=== PATIENT | male | born 1965 | race Caucasian/White ===

== ENCOUNTER 2017-05-03 19:50 | Inpatient (IN) | payer MEDICARE, OTHER ==
[2017-05-03] MEDS ORDERED: Sodium Chloride 0.9% 1,000 ML IV ONE ×2 (20:36→21:38)
[2017-05-03] MEDS ORDERED: Morphine 4 MG/ML VIAL ONE (20:48)
[2017-05-03 20:58] LABS: BASO % 0.2 % (0.0-2.0); EOS % 0.2 % (0.0-4.0); HEMATOCRIT 48.4 % (35.0-51.0); LYMPH % 7.2 % (20.0-40.0); MEAN CELL VOLUME 91.9 fL (80.0-94.0); MEAN CORPUSCULAR HEMOGLOBIN 31.2 pg (27.0-31.0); MEAN CORPUSCULAR HGB CONC 33.9 g/dL (33.0-37.0); MEAN PLATELET VOLUME 9.6 fL (7.2-11.7); MONO # 0.7 K/uL (0.0-0.8); MONO % 5.2 % (0.0-10.0); PLATELET COUNT 188 K/uL (130-400); RED CELL DISTRIBUTION WIDTH 13.8 % (11.5-14.5); WHITE BLOOD COUNT 13.9 K/uL (4.8-10.8)
[2017-05-03 21:08] LABS: INR 1.2
[2017-05-03 21:16] LABS: ALKALINE PHOSPHATASE 132 U/L (38-126); ALT/SGPT 20 U/L (21-72); AST/SGOT 165 U/L (17-59); BILIRUBIN,TOTAL 1.2 mg/dL (0.2-1.3); BLOOD UREA NITROGEN 19 mg/dL (9-20); CALCIUM 9.3 mg/dl (8.6-10.4); CARBON DIOXIDE 27 mmol/L (22-30); CHLORIDE 102 mmol/L (98-107); GFR AFRICAN-AMERICAN > 60; GLUCOSE,RANDOM 123 mg/dL (75-110); MAGNESIUM 1.9 mg/dL (1.6-2.3); POTASSIUM 3.6 mmol/L (3.6-5.2); SODIUM 146 mmol/L (132-148); TOTAL PROTEIN 8.3 g/dL (6.3-8.3)
[2017-05-03 21:18] LABS: NEUTROPHIL 84 % (50-75); TOTAL CELLS COUNTED 100
[2017-05-03 21:19] LABS: LARGE PLATELETS PRESENT
[2017-05-03 21:26] LABS: RBC URINE 5 /hpf (0-3); URINE BACTERIA OCC (<OCC); URINE BILIRUBIN NEGATIVE (NEGATIVE); URINE BLOOD 3+ (NEGATIVE); URINE COLOR Amber (YELLOW); URINE GLUCOSE (UA) NORMAL (Normal); URINE KETONE TRACE mg/dL (NEGATIVE); URINE LEUKOCYTE ESTERASE NEG Leu/uL (Negative); URINE PROTEIN 2+ mg/dL (NEGATIVE); URINE UROBILINOGEN NORMAL mg/dL (0.2-1.0); WBC URINE 5 /hpf (0-5)
--- NOTE | 2017-05-03 21:29 | CT ---
EXAM: CT Head Without Intravenous Contrast EXAM DATE/TIME: Exam ordered 05/03/2017 8:37 PM CLINICAL HISTORY: 52 years old, male; Injury or trauma; Fall; Initial encounter; Blunt trauma (contusions or hematomas); Consciousness not specified; Additional info: Fall, hit head TECHNIQUE: Axial computed tomography images of the head/brain without intravenous contrast. All CT scans at this facility use one or more dose reduction techniques, viz.: automated exposure control; ma/kV adjustment per patient size (including targeted exams where dose is matched to indication; i.e. head); or iterative reconstruction technique. Coronal and sagittal reformatted images were created and reviewed. COMPARISON: No relevant prior studies available. FINDINGS: Brain: Unremarkable. No hemorrhage. No significant white matter disease. No edema. Ventricles: Unremarkable. No ventriculomegaly. Bones/joints: Unremarkable. No acute fracture. Soft tissues: Unremarkable. Sinuses: Unremarkable as visualized. No acute sinusitis. Mastoid air cells: Unremarkable as visualized. No mastoid effusion. Nasopharynx: There is deviation of the nasal septum. IMPRESSION: No acute findings.
[2017-05-03] MEDS ORDERED: Iodixanol 320 MG/ML 100 ML BOTTLE IV ONE (22:04)
--- NOTE | 2017-05-03 23:06 | CT ---
EXAM: CT Angiography Chest With Intravenous Contrast CLINICAL HISTORY: 52 years old, male; Pain; Chest pain; Type not specified; Additional info: Syncope. R/O pe. TECHNIQUE: Axial computed tomographic angiography images of the chest with intravenous contrast using pulmonary embolism protocol. All CT scans at this facility use one or more dose reduction techniques, viz.: automated exposure control; ma/kV adjustment per patient size (including targeted exams where dose is matched to indication; i.e. head); or iterative reconstruction technique. MIP reconstructed images were created and reviewed. Coronal and sagittal reformatted images were created and reviewed. CONTRAST: 100 mL of [id number] administered intravenously. COMPARISON: No relevant prior studies available. FINDINGS: Pulmonary arteries: No pulmonary embolism. Aorta: No thoracic aortic aneurysm. Lungs: No mass. No consolidation. Trace bibasilar atelectasis. Marked elevation of the right hemidiaphragm. Pleural spaces: No significant effusion. No pneumothorax. Heart: No cardiomegaly. No significant pericardial effusion. No evidence of right heart dysfunction. Bones: No acute fracture. Lymph nodes: No pathologically enlarged lymph nodes. IMPRESSION: No pulmonary embolism. Trace bibasilar atelectasis.
--- NOTE | 2017-05-03 23:16 | C.PDOC ---
History Of Present Illness Pt was in the bathroom at home by himself when he states that he felt weak and dizzy and fell to the ground. He was unable to get back up on his own and was on the floor for at least 30 minutes before his family found him and called 911. - HPI Time Seen by Provider: 05/03/17 20:13 Chief Complaint (Nursing): Trauma History Per: Patient, Family Injury Occurred (Timing): Just Before Arrival Description Of Injury (Context): Fell in the bathroom at home. Location Of Injury: Anterior: Head Severity: Moderate Associated Symptoms: LOC (?) Additional History Per: Prior Records - Fall Fall:Prior To Injury: [place] Lightheaded (?) Past Medical History Reviewed: Historical Data, Nursing Documentation, Vital Signs Vital Signs: Last Vital Signs Temp 98.6 F 05/03/17 19:52 Pulse 104 H 05/03/17 20:38 Resp 24 05/03/17 20:38 BP 133/86 05/03/17 20:38 Pulse Ox 93 L 05/03/17 23:24 - Medical History PMH: Parkinson's Disease Surgical History: No Surg Hx Family History: States: Unknown Family Hx - Social History Hx Tobacco Use: No Hx Alcohol Use: No (quit 7 years ago) Hx Substance Use: No - Immunization History Hx Tetanus Toxoid Vaccination: No Hx Influenza Vaccination: Yes Hx Pneumococcal Vaccination: Yes Review Of Systems Except As Marked, All Systems Reviewed And Found Negative. Constitutional: Negative for: Fever Respiratory: Positive for: Shortness of Breath (?). Negative for: Hemoptysis Gastrointestinal: Negative for: Vomiting, Abdominal Pain Musculoskeletal: Positive for: Back Pain (right lower). Negative for: Neck Pain Skin: Negative for: Rash Neurological: Positive for: Headache. Negative for: Weakness, Numbness, Seizures Physical Exam - Physical Exam Appears: No Acute Distress, Chronically Ill Skin: Normal Color, Warm, Dry, No Rash Head: Atraumatic, Normacephalic, No Laceration, Other (contusions) Eye(s): bilateral: PERRL, EOMI Neck: Normal ROM, No Midline Cervical Tenderness, No Step Off Deformity, Supple Chest: Symmetrical, No Deformity Cardiovascular: Rhythm Regular Respiratory: Normal Breath Sounds, No Accessory Muscle Use Gastrointestinal/Abdominal: Soft, No Tenderness Back: No Vertebral Tenderness, Paraspinal Tenderness (right lower) Extremity: Normal ROM, Other (Onycomycosis. Abrasions on fingers. Multiple contusions. ) Pulses: Left Dorsalis Pedis: Normal, Right Dorsalis Pedis: Normal Neurological/Psych: Oriented x3, Other (Tremors due to Parkinson. No focal neurological deficits.) Gait: Unable To Assess ED Course And Treatment - Laboratory Results Result Diagrams: 05/03/17 20:53 05/03/17 20:53 Lab Interpretation: Abnormal Interpretation Of Abnormal: Elevated CK level. ECG: Interpreted By Me, Viewed By Me ECG Rhythm: Sinus Rhythm, Nonspecific Changes ECG Interpretation: No Acute Changes Rate From EC O2 Sat by Pulse Oximetry: 93 - Other Rad Pelvis X-rays X-Ray: Interpreted by Me, Viewed By Me Interpretation: No acute fx or dislocation. - CT Scan/US CTA of chest Other Rad Studies (CT/US): Read By Radiologist, Radiology Report Reviewed CT/US Interpretation: IMPRESSION: No pulmonary embolism. Trace bibasilar atelectasis. CT head Other Rad Studies (CT/US): Read By Radiologist, Radiology Report Reviewed CT/US Interpretation: IMPRESSION: No acute findings Progress - Interventions Interventions:: Observation, Intravenous fluid - Medications Administered Intravenous: Opiate - Data Reviewed Data Reviewed: Lab, Diagnostic imaging, EKG, Old records - Patient Status Patient status: Partially improved - Critical Care Citical Care: Excluding Proc Time Critical Care Time: 45 minutes - Continuity of Care Discussed patient case with:: Patient, Family-HIPPA compliant, ED Nurse, Covering for PMD - Patient Plan Patient Plan: Admission, Telemetry Disposition Discussed With DrDebi: Stefano Armstrong Comment: He accepted pt on hospitalist service. Doctor Will See Patient In The: Hospital Counseled Patient/Family Regarding: Studies Performed, Diagnosis - Disposition Disposition: HOSPITALIZED Disposition Time: 23:33 Condition: GUARDED - Clinical Impression Clinical Impression: Rhabdomyolysis, Fall at home, Parkinson disease
--- NOTE | 2017-05-04 00:06 | CP.PCM.HP ---
<Germán Garrett E - Last Filed: 05/04/17 05:37> History of Present Illness - History of Present Illness History of Present Illness: CC: Syncope/Fall HPI: Patient is a 52 year old male with past medical history of parkinsons, who presents to the ED via ambulance for unwitnessed syncope/fall. Patient reports that he fell this afternoon on his way out of the bathroom. Patient reports that he was on the floor for 45 minutes and was later found by his brother in law. As per nursing, patient's family members report that they believe that patient lost consciousness. Patient states that he does not remember much about his fall. Patient denies the use of assisted device at home. Patient reports a 8 /10 mid-low back pain since his fall. Patient denies headache, visual disturbances, chest pain, palpitations, abdominal pain, dizziness, but admits to mid-lower back pain. 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 Denies tobacco, ETOH and illicit drug use Present on Admission - Present on Admission Any Indicators Present on Admission: No Review of Systems - Constitutional Constitutional: Weakness. absent: Chills, Fever, Headache - EENT Eyes: absent: Blurred Vision, Change in Vision Ears: absent: Dizziness - Cardiovascular Cardiovascular: absent: Chest Pain, Dyspnea, Palpitations - Respiratory Respiratory: absent: Dyspnea - Gastrointestinal Gastrointestinal: Diarrhea. absent: Abdominal Pain, Nausea, Vomiting - Musculoskeletal Musculoskeletal: Back Pain, Muscle Weakness. absent: Neck Pain, Numbness, Tingling - Neurological Neurological: Abnormal Movements, Disequilibrium, Syncope, Tremor, Weakness. absent: Dizziness, Headaches, Tingling - Endocrine Endocrine: absent: Palpitations Past Patient History - Infectious Disease Hx of Infectious Diseases: None - Past Medical History & Family History Past Medical History?: Yes - Past Social History Smoking Status: Never Smoked - CARDIAC Hx Cardiac Disorders: No - PULMONARY Hx Respiratory Disorders: No - NEUROLOGICAL Hx Parkinson's Disease: Yes - HEENT Hx HEENT Problems: No - RENAL Hx Chronic Kidney Disease: No - ENDOCRINE/METABOLIC Hx Endocrine Disorders: No - HEMATOLOGICAL/ONCOLOGICAL Hx Blood Disorders: No - INTEGUMENTARY Hx Dermatological Problems: No - MUSCULOSKELETAL/RHEUMATOLOGICAL Hx Falls: No - GASTROINTESTINAL Hx Gastrointestinal Disorders: No - GENITOURINARY/GYNECOLOGICAL Hx Genitourinary Disorders: No - PSYCHIATRIC Hx Substance Use: No - SURGICAL HISTORY Hx Surgeries: Yes Other/Comment: Right knee ligament sx - ANESTHESIA Hx Anesthesia: Yes Hx Anesthesia Reactions: No Hx Malignant Hyperthermia: No Meds Allergies/Adverse Reactions: Allergies Allergy/AdvReac Type Severity Reaction Status Date / Time No Known Allergies Allergy Verified 05/03/17 19:58 Physical Exam - Constitutional Appears: No Acute Distress - Head Exam Head Exam: ATRAUMATIC - Eye Exam Eye Exam: EOMI, Normal appearance Pupil Exam: PERRL - Respiratory Exam Respiratory Exam: NORMAL BREATHING PATTERN Additional comments: Limited due to patient's back pain - Cardiovascular Exam Cardiovascular Exam: REGULAR RHYTHM, +S1, +S2 - GI/Abdominal Exam GI & Abdominal Exam: Normal Bowel Sounds, Soft. absent: Tenderness - Extremities Exam Extremities exam: Positive for: normal inspection. Negative for: calf tenderness, tenderness - Back Exam Back exam: tenderness, vertebral tenderness. absent: CVA tenderness (L), CVA tenderness (R) - Neurological Exam Neurological exam: Alert, Oriented x3 Additional comments: Unable to complete full and adequate neurological exam due to patient's condition of parkinsons Resting tremors - Skin Skin Exam: Normal Color Results - Vital Signs Recent Vital Signs: Last Vital Signs Temp 98.6 F 05/03/17 19:52 Pulse 104 H 05/03/17 20:38 Resp 24 05/03/17 20:38 BP 133/86 05/03/17 20:38 Pulse Ox 93 L 05/03/17 23:37 - Labs Result Diagrams: 05/03/17 20:53 05/03/17 20:53 Assessment & Plan (1) Syncope Assessment and Plan: R/O ACS: * Serial ABDIFATAH and EKGs First ABDIFATAH (-x2), f/u ABDIFATAH x1 EKG X2: NSR, undetermined Inferior infarct (possible) F/u EKG x1 * D-dimer: 403 * F/u Lipid panel, hemoglobin A1C and TSH Diagnostic work-up: * Head CT: No acute findings; No hemorrhage * Chest CT: No pulmonary embolism. Trace bibasilar atelactasis * Pelvis X-ray: F/u unofficial report * F/u echocardiogram and carotid doppler * F/u Orthostatic vitals Neuro checks Q8H Status: Acute (2) Rhabdomyolysis Assessment and Plan: On admission: * Total creatinine kinase: 9497 * CK-MB: 48.7 * BUN/CR: 19/0.7 Medications: * NS @ 150mls/hr Status: Acute (3) Parkinson disease Assessment and Plan: Continue home medications * Benztropine 2mg PO daily * Sinemet 1 tab PO q6 * Mirapex 0.25mg PO TID * Artane 2mg PO TID PT/OT Status: Acute (4) Prophylactic measure Assessment and Plan: SCDs Heparin 5,000 units SC Q8H Pepcid 20mg PO BID PT/OT Status: Acute <Stefano Armstrong - Last Filed: 05/04/17 06:20> Results - Vital Signs Recent Vital Signs: Last Vital Signs Temp 98.2 F 05/04/17 04:45 Pulse 70 05/04/17 04:45 Resp 18 05/04/17 04:45 BP 119/73 05/04/17 04:45 Pulse Ox 98 05/04/17 04:45 - Labs Result Diagrams: 05/03/17 20:53 05/03/17 20:53 Labs: Laboratory Results - last 24 hr 05/04/17 02:57 Total Creatine Kinase 78989 H CK-MB (Mass) 150 H Troponin I, Quant 0.0640 Assessment & Plan - Date & Time Date: 05/04/17 (I have seen and examined the patient. I agree with the findings and plan of care as documented by Dr. Garrett. Patient with syncope. CT head negative. 2D Echo and Carotid dopplers. ROMIx3 with EKG. Also with rhabdo. Patient was on floor after syncopal episode for about 45 minutes before being found. IVF. Monitor renal function. Continue home meds for history of parkinson's disease. Monitor for acute changes.) Time: 06:18 Attending/Attestation - Attestation I have personally seen and examined this patient.: Yes I have fully participated in the care of the patient.: Yes I have reviewed all pertinent clinical information: Yes
[2017-05-04] MEDS ORDERED: Magnesium Citrate Oral SOL (300 ml) PO PRN (00:10)
[2017-05-04] MEDS ORDERED: Sodium Chloride 0.9% 1,000 ML IV SCH (00:15)
[2017-05-04] MEDS: Carbidopa/Levodopa 25/100 CR PO SCH ×3 (05:15→18:03)
[2017-05-04 06:42] LABS: ALB/GLOB RATIO 1.1 (1.0-2.1); ALKALINE PHOSPHATASE 84 U/L (38-126); ALT/SGPT 41 U/L (21-72); AST/SGOT 715 U/L (17-59); BILIRUBIN,TOTAL 1.4 mg/dL (0.2-1.3); BLOOD UREA NITROGEN 14 mg/dL (9-20); CALCIUM 8.4 mg/dl (8.6-10.4); CARBON DIOXIDE 26 mmol/L (22-30); CHLORIDE 104 mmol/L (98-107); CHOLESTEROL 89 mg/dL (0-199); GFR AFRICAN-AMERICAN > 60; GLUCOSE,RANDOM 91 mg/dL (75-110); POTASSIUM 3.5 mmol/L (3.6-5.2); SODIUM 141 mmol/L (132-148); TOTAL PROTEIN 6.4 g/dL (6.3-8.3)
[2017-05-04 06:47] LABS: BASO % 0.4 % (0.0-2.0); EOS # 0.2 K/uL (0.0-0.7); EOS % 1.8 % (0.0-4.0); HEMATOCRIT 43.6 % (35.0-51.0); LYMPH # 1.4 K/uL (1.0-4.3); LYMPH % 15.5 % (20.0-40.0); MEAN CELL VOLUME 92.5 fL (80.0-94.0); MEAN CORPUSCULAR HEMOGLOBIN 31.5 pg (27.0-31.0); MEAN PLATELET VOLUME 9.4 fL (7.2-11.7); MONO # 0.7 K/uL (0.0-0.8)
[2017-05-04 07:40] LABS: THYROID STIMULATING HORMONE 1.37 mIU/L (0.46-4.68)
--- NOTE | 2017-05-04 07:56 | RAD ---
HISTORY: fall COMPARISON: Portable chest 12/29/2014. FINDINGS: LUNGS: Examination appears nearly identical in the interval. No definite acute infiltrate is appreciated bilaterally. Insert stable. PLEURA: No significant pleural effusion identified, no pneumothorax apparent. CARDIOVASCULAR: Normal. OSSEOUS STRUCTURES: No significant abnormalities. VISUALIZED UPPER ABDOMEN: Normal. OTHER FINDINGS: None. IMPRESSION: No interval acute cardiopulmonary is appreciable. No significant interval change 12/29/2014.
--- NOTE | 2017-05-04 08:10 | RAD ---
PROCEDURE: Radiographs of the pelvis. HISTORY: Fall COMPARISON: None. FINDINGS: BONES: Pelvic Bones: The pelvic ring is intact. No fracture or suspicious lytic or blastic changes identified. Hips: Degenerative cortical sclerosis appreciated bilaterally, symmetrically. No definitive dislocation or subluxation. JOINTS: Sacroiliac Joints: Degenerative cortical sclerosis is seen symmetrically bilaterally. Pubic Symphysis: Intact. OTHER FINDINGS: None. IMPRESSION: No fracture, suspicious lytic or blastic change. Degenerative joint changes seen in the bilateral sacroiliac and hip joints as per above.
--- NOTE | 2017-05-04 09:40 | CP.PCM.PN ---
Subjective - Date & Time of Evaluation Date of Evaluation: 05/04/17 Time of Evaluation: 09:30 - Subjective Subjective: Patient was seen and examined by me. The patient was awake, alert, answering questions. Of note is the significant bilateral tremors and weakness he has on exam. He has a history of Parkinson's Disease and he explains that he has been falling repeatedly. He explains that just before he came in he fell twice and was on the ground for 3+ hrs once and then 45 min the second time. Later family members came and explained that they are often at work and come home finding patient on the ground. They explain he is often at home by himself during the day. He reports weakness seems to be worsening as well as generalized body aches and pain. His imaging done of the head, chest, pelvis did not show any fractures. He did have an elevated CPK on admission and today the CPK is higher - how 33,400 suggestive of rhabdomylsis. He is already on IVF at 150. Will add 1 amp of bicarb. Also will need to monitor the patient's renal function incase it should increase. Per review of previous records he was here at [facility] 2 years ago with complications from his Parkinson disease. Per discussion with family and patient they feel that the disease has very slowly gotten worse over time Because the patient is at home a lone, and frequently falls and is reportedly on the ground for an extended period of time. Will need to discuss with family and later with case workers if patient needs to be in an assisted living facility or detention. Objective - Vital Signs/Intake and Output Vital Signs (last 24 hours): Temp Pulse Resp BP Pulse Ox 98.0 F 75 20 151/83 H 96 05/04/17 07:15 05/04/17 07:15 05/04/17 07:15 05/04/17 07:15 05/04/17 07:15 Intake and Output: 05/04/17 05/04/17 06:59 18:59 Intake Total 1350 Output Total 550 Balance 800 - Medications Medications: Current Medications Benztropine Mesylate (Cogentin) 2 mg PO DAILY [facility] Carbidopa/Levodopa (Sinemet Cr) 1 tab PO Q6 [facility] Last Admin: 05/04/17 05:15 Dose: 1 tab Docusate Sodium (Colace) 100 mg PO DAILY [facility] Famotidine (Pepcid) 20 mg PO BID [facility] Heparin Sodium (Porcine) (Heparin) 5,000 units SC Q8 [facility] Last Admin: 05/04/17 05:15 Dose: 5,000 units Sodium Chloride (Sodium Chloride 0.9%) 1,000 mls @ 150 mls/hr IV .Q6H40M [facility] Last Admin: 05/04/17 01:15 Dose: 150 mls/hr Magnesium Citrate (Citrate Of Mag) 300 ml PO ONCE PRN PRN Reason: Constipation Morphine Sulfate (Morphine) 1 mg IVP Q4H PRN PRN Reason: Pain, moderate (4-7) Pramipexole Dihydrochloride (Mirapex) 0.25 mg PO TID [facility] Trihexyphenidyl HCl (Artane) 2 mg PO TID [facility] - Labs Labs: 05/04/17 06:16 05/04/17 06:16 PT 14.3 SECONDS (9.7-12.2) H 05/03/17 20:53 INR 1.2 05/03/17 20:53 APTT 26 SECONDS (21-34) 05/03/17 20:53 - Constitutional Appears: Chronically Ill - Eye Exam Eye Exam: EOMI - ENT Exam ENT Exam: Mucous Membranes Dry - Respiratory Exam Respiratory Exam: Clear to Ausculation Bilateral, NORMAL BREATHING PATTERN - Cardiovascular Exam Cardiovascular Exam: REGULAR RHYTHM - GI/Abdominal Exam GI & Abdominal Exam: Distended, Soft, Normal Bowel Sounds. absent: Firm, Guarding, Rigid, Tenderness - Neurological Exam Neurological Exam: Alert, Awake, Oriented x3 Neuro motor strength exam: Left Upper Extremity: 4, Right Upper Extremity: 4, Left Lower Extremity: 4, Right Lower Extremity: 4 Additional comments: Bilateral fine hand tremors and bilateral upper extremity tremors. Stiff cogwheel like rigidty on exam of upper extremities. Minimal face muscle movments. Lower extremity has difficulty elevating legs - Psychiatric Exam Psychiatric exam: Depressed, Flat Affect - Skin Skin Exam: Dry, Normal Color Assessment and Plan - Assessment and Plan (Free Text) Assessment: Assessment and Plan: (1) Rhabdomyolysis, patient has repeated falls daily and prolonged period of time on the ground Assessment and Plan: 05/04: He reports generalized pain and muscle aches. CPK increased to 33,400 now. Already on IVF at 150, will add 1 amp of bicarb. Need to monitor the renal function. Mponitor CPK daily * NS @ 150mls/hr + 1 amp of bicarb R/O ACS: * Serial ABDIFATAH and EKGs First ABDIFATAH (-x2), f/u ABDIFATAH x1 EKG X2: NSR, undetermined Inferior infarct (possible) F/u EKG x1 * D-dimer: 403 * F/u Lipid panel, hemoglobin A1C and TSH Neuro checks Q8H (2) Parkinson disease, repeated falling Assessment and Plan: 05/04: Will notify the patient's neurologist. Per discussion with pharmacy Artane is not on formulary here. Also will need to again discuss with family and patient if he needs to be in an assisted living facility due to being alone most of the day and having more frequent falls. * Benztropine 2mg PO daily * Sinemet 1 tab PO q6 * Mirapex 0.25mg PO TID * Artane 2mg PO TID Diagnostic work-up: * Head CT: No acute findings; No hemorrhage * Chest CT: No pulmonary embolism. Trace bibasilar atelactasis * Pelvis X-ray: F/u unofficial report * F/u echocardiogram and carotid doppler * F/u Orthostatic vitals (3) Prophylactic measure Assessment and Plan: SCDs Heparin 5,000 units SC Q8H Pepcid 20mg PO BID PT/OT
[2017-05-04] MEDS: Sodium Bicarbonate 8.4% 50 MEQ in Dextrose 5% In Water 1,000 ML IV SCH ×3 (13:50→22:07)
[2017-05-05] MEDS: Carbidopa/Levodopa 25/100 CR PO SCH ×5 (00:02→23:46)
[2017-05-05] MEDS: Sodium Bicarbonate 8.4% 50 MEQ in Dextrose 5% In Water 1,000 ML IV SCH ×4 (05:24→22:45)
[2017-05-05 07:58] LABS: CHLORIDE 96 mmol/L (98-107)
[2017-05-05 07:59] LABS: POTASSIUM 3.6 mmol/L (3.6-5.2); SODIUM 141 mmol/L (132-148)
[2017-05-05 08:01] LABS: AST/SGOT 709 U/L (17-59); BILIRUBIN,TOTAL 1.3 mg/dL (0.2-1.3); CARBON DIOXIDE 30 mmol/L (22-30); GFR AFRICAN-AMERICAN > 60
[2017-05-05 08:02] LABS: ALB/GLOB RATIO 1.1 (1.0-2.1); ALKALINE PHOSPHATASE 75 U/L (38-126); ALT/SGPT 50 U/L (21-72); BLOOD UREA NITROGEN 11 mg/dL (9-20); CALCIUM 8.1 mg/dl (8.6-10.4); GLUCOSE,RANDOM 98 mg/dL (75-110); TOTAL PROTEIN 7.1 g/dL (6.3-8.3)
--- NOTE | 2017-05-05 13:07 | CP.PCM.PN ---
<AzeemjudyJason rubio - Last Filed: 05/05/17 13:13> Subjective - Date & Time of Evaluation Date of Evaluation: 05/05/17 Time of Evaluation: 12:54 - Subjective Subjective: PGY1 Note for Dr. Mcgee HPI: Patient seen and examined at bedside. Complaining that his whole body hurts still. He falls everyday when he tries to walk. When his tremors are really bad he hits his hands on surrounding objects resulting in oinjury to his hands. Denies any chest pain or SOB, N/V/F. Objective - Vital Signs/Intake and Output Vital Signs (last 24 hours): Temp Pulse Resp BP Pulse Ox 98.1 F 72 18 160/84 H 95 05/05/17 07:20 05/05/17 08:02 05/05/17 07:20 05/05/17 07:20 05/05/17 07:20 Intake and Output: 05/05/17 05/05/17 06:59 18:59 Intake Total 1500 Output Total 1050 Balance 450 - Medications Medications: Current Medications Benztropine Mesylate (Cogentin) 2 mg PO DAILY [facility] Last Admin: 05/05/17 10:03 Dose: 2 mg Carbidopa/Levodopa (Sinemet Cr) 1 tab PO Q6 [facility] Last Admin: 05/05/17 12:35 Dose: 1 tab Docusate Sodium (Colace) 100 mg PO DAILY [facility] Last Admin: 05/05/17 10:02 Dose: 100 mg Famotidine (Pepcid) 20 mg PO BID [facility] Last Admin: 05/05/17 10:02 Dose: 20 mg Heparin Sodium (Porcine) (Heparin) 5,000 units SC Q8 [facility] Last Admin: 05/05/17 05:28 Dose: 5,000 units Sodium Bicarbonate 50 meq/ (Dextrose) 1,050 mls @ 150 mls/hr IV .Q7H [facility] Last Admin: 05/05/17 05:24 Dose: 150 mls/hr Magnesium Citrate (Citrate Of Mag) 300 ml PO ONCE PRN PRN Reason: Constipation Morphine Sulfate (Morphine) 1 mg IVP Q4H PRN PRN Reason: Pain, moderate (4-7) Pramipexole Dihydrochloride (Mirapex) 0.25 mg PO TID [facility] Last Admin: 05/05/17 10:03 Dose: 0.25 mg Trihexyphenidyl HCl (Artane) 2 mg PO TID [facility] Last Admin: 05/05/17 10:03 Dose: 2 mg - Labs Labs: 05/04/17 06:16 05/05/17 07:24 PT 14.3 SECONDS (9.7-12.2) H 05/03/17 20:53 INR 1.2 05/03/17 20:53 APTT 26 SECONDS (21-34) 05/03/17 20:53 - Constitutional Appears: Chronically Ill (parkinsons) - Head Exam Head Exam: ATRAUMATIC, NORMAL INSPECTION, NORMOCEPHALIC - ENT Exam ENT Exam: Mucous Membranes Moist - Respiratory Exam Respiratory Exam: Clear to Ausculation Bilateral, NORMAL BREATHING PATTERN - Cardiovascular Exam Cardiovascular Exam: REGULAR RHYTHM - GI/Abdominal Exam GI & Abdominal Exam: Soft, Normal Bowel Sounds. absent: Distended, Tenderness - Neurological Exam Neurological Exam: Alert, Awake, Oriented x3 - Psychiatric Exam Psychiatric exam: Normal Affect, Normal Mood - Skin Skin Exam: Dry, Intact, Normal Color, Warm Assessment and Plan - Assessment and Plan (Free Text) Assessment: Rhabdomyolysis, patient has repeated falls daily and prolonged period of time on the ground * CPK [id number] * Monitor CPK daily * D5W @ 150mls/hr + 1 amp of bicarb R/O ACS: * Serial ABDIFATAH and EKGs - Negative EKG X2: NSR, undetermined Inferior infarct (possible) F/u EKG x1 * Lipid panel * TG 46 * Chol 89 * LDL 52 * HDL 31 * TSH 1.37 Parkinson disease, repeated falling * Neuro ([facility]) - F/U reccs * Benztropine 2mg PO daily * Sinemet 1 tab PO q6 * Mirapex 0.25mg PO TID * Artane 2mg PO TID * Head CT: No acute findings; No hemorrhage * Chest CT: No pulmonary embolism. Trace bibasilar atelactasis * Pelvis X-ray: no fracture * F/u echocardiogram and carotid doppler Prophylactic measure SCDs Heparin 5,000 units SC Q8H Pepcid 20mg PO BID PT/OT <Mcgee,Peter H - Last Filed: 05/05/17 15:22> Objective - Vital Signs/Intake and Output Vital Signs (last 24 hours): Temp Pulse Resp BP Pulse Ox 98.1 F 72 18 160/84 H 95 05/05/17 07:20 05/05/17 08:02 05/05/17 07:20 05/05/17 07:20 05/05/17 07:20 Intake and Output: 05/05/17 05/05/17 06:59 18:59 Intake Total 1500 Output Total 1050 Balance 450 - Medications Medications: Current Medications Benztropine Mesylate (Cogentin) 2 mg PO DAILY [facility] Last Admin: 05/05/17 10:03 Dose: 2 mg Carbidopa/Levodopa (Sinemet Cr) 1 tab PO Q6 [facility] Last Admin: 05/05/17 12:35 Dose: 1 tab Docusate Sodium (Colace) 100 mg PO DAILY [facility] Last Admin: 05/05/17 10:02 Dose: 100 mg Famotidine (Pepcid) 20 mg PO BID [facility] Last Admin: 05/05/17 10:02 Dose: 20 mg Heparin Sodium (Porcine) (Heparin) 5,000 units SC Q8 [facility] Last Admin: 05/05/17 13:29 Dose: 5,000 units Sodium Bicarbonate 50 meq/ (Dextrose) 1,050 mls @ 150 mls/hr IV .Q7H [facility] Last Admin: 05/05/17 13:50 Dose: 150 mls/hr Magnesium Citrate (Citrate Of Mag) 300 ml PO ONCE PRN PRN Reason: Constipation Morphine Sulfate (Morphine) 1 mg IVP Q4H PRN PRN Reason: Pain, moderate (4-7) Pramipexole Dihydrochloride (Mirapex) 0.25 mg PO TID [facility] Last Admin: 05/05/17 13:30 Dose: 0.25 mg Trihexyphenidyl HCl (Artane) 2 mg PO TID [facility] Last Admin: 05/05/17 13:30 Dose: 2 mg - Labs Labs: 05/04/17 06:16 05/05/17 07:24 PT 14.3 SECONDS (9.7-12.2) H 05/03/17 20:53 INR 1.2 05/03/17 20:53 APTT 26 SECONDS (21-34) 05/03/17 20:53 Attending/Attestation - Attestation I have personally seen and examined this patient.: Yes I have fully participated in the care of the patient.: Yes I have reviewed all pertinent clinical information, including history, physical exam and plan: Yes Notes (Text): 05/05/17 15:20 Medical attending: Patient was seen and examined by me. Agree with the above note by the resident. The CPK was higher today to 36,000. Patient reported he does continue to have muscle aches and pain. We are continuing the IVF at this time with bicarb in it. Monitor renal function. Awaiting neurology evaluation
--- NOTE | 2017-05-05 20:23 | CARD ---
APPROVED REPORT EXAM: Two-dimensional and M-mode echocardiogram with Doppler and color Doppler. Other Information Quality : Technically LimitedRhythm : NSR INDICATION Syncope Parkisons 2D DIMENSIONS IVSd1.4 (0.7-1.1cm)LVDd4.4 (3.9-5.9cm) PWd1.1 (0.7-1.1cm)LVDs2.8 (2.5-4.0cm) FS (%) 36.1 %LVEF (%)66.0 (>50%) M-Mode DIMENSIONS Left Atrium (MM)3.15 (2.5-4.0cm)Aortic Root4.02 (2.2-3.7cm) Aortic Cusp Exc.2.05 (1.5-2.0cm) Mitral Valve MV E Lrmwtqjw38.2cm/sMV A Ynpsrvyw37.4cm/sE/A ratio0.7 TDI E/Lateral E'0.0E/Medial E'0.0 Tricuspid Valve TR Peak Isetrrwo557ia/sTR Peak Gr.[id number] LEFT VENTRICLE The left ventricle is normal size. There is mild concentric left ventricular hypertrophy. The left ventricular function is normal. The left ventricular ejection fraction is within the normal range. There is normal LV segmental wall motion. Transmitral Doppler flow pattern is Grade I-abnormal relaxation pattern. RIGHT VENTRICLE The right ventricle is normal size. There is normal right ventricular wall thickness. The right ventricular systolic function is normal. ATRIA The left atrium size is normal. The right atrium size is normal. AORTIC VALVE The aortic valve is mildly thickened. There is mild to moderate aortic regurgitation. MITRAL VALVE The mitral valve is normal in structure. There is no evidence of mitral valve prolapse. GREAT VESSELS The aortic root is mildly enlarged. <Conclusion> Poor Echo Window The left ventricle is normal size. There is mild concentric left ventricular hypertrophy. The left ventricular function is normal. The left ventricular ejection fraction is within the normal range. There is normal LV segmental wall motion. Transmitral Doppler flow pattern is Grade I-abnormal relaxation pattern. There is mild to moderate aortic regurgitation. The aortic root is mildly enlarged.
--- NOTE | 2017-05-06 01:31 | CT ---
EXAM: CT Pelvis Without Intravenous Contrast CLINICAL HISTORY: 52 years old, male; Signs and symptoms; Mass, lump, or swelling; Other: Pelvic; Additional info: F/u pelvic lesions on xray TECHNIQUE: Axial computed tomography images of the pelvis without intravenous contrast. All CT scans at this facility use one or more dose reduction techniques, viz.: automated exposure control; ma/kV adjustment per patient size (including targeted exams where dose is matched to indication; i.e. head); or iterative reconstruction technique. Coronal and sagittal reformatted images were created and reviewed. COMPARISON: No relevant prior studies available. FINDINGS: Bowel: Unremarkable. No obstruction. No mucosal thickening. Appendix: Air-filled appendix is of normal caliber (series 3, image 24). Intraperitoneal space: No free air. No significant fluid collection. Bladder: No stones. Reproductive: Unremarkable as visualized. Bones/joints: No acute fracture. No dislocation. Subcentimeter rounded areas of increased attenuation within the left femoral head, findings suggesting bone islands. No discrete lytic or additional blastic lesions are identified. Trace sclerosis of the bilateral sacroiliac joints. Soft tissues: Unremarkable. Vasculature: Tortuosity of the bilateral iliac arteries. No lower abdominal aortic aneurysm. Lymph nodes: No pathologically enlarged lymph nodes. IMPRESSION: Trace sclerosis of the bilateral sacroiliac joints. Findings within the left femoral head suggesting bone islands, as detailed above.
--- NOTE | 2017-05-06 03:37 | CON ---
NEUROLOGY CONSULTATION DATE: REASON FOR CONSULTATION: Episode of passing out. HISTORY OF PRESENT ILLNESS: The patient is a 52-year-old male with history of Parkinson's disease. He presented to the emergency room after he had an episode of passing out. The patient apparently fell in the afternoon yesterday on his way out of the bathroom. He was apparently unconscious for several minutes. He was later found by his [id number]. The patient has history of Parkinson's disease. The patient used to see me in the past, has not seen me for almost a year. Denies of having any dizziness, chest pain or palpitation. REVIEW OF SYSTEMS: Denies any headache, dizziness, chest pain, shortness of breath, abdominal pain, constipation, diarrhea, dysuria, cough, or sputum production. PAST MEDICAL HISTORY: Includes Parkinson's disease. HOME MEDICATIONS: Include benzatropine 2 mg daily, Sinemet 25/100 mg every 6 hours, Mirapex 0.25 mg 3 times a day, Artane 2 mg 3 times a day. ALLERGIES: NO KNOWN DRUG ALLERGIES. SOCIAL HISTORY: Denies smoking, use of alcohol or illicit drugs. FAMILY HISTORY: Reviewed and noncontributory to the case. PHYSICAL EXAMINATION GENERAL: Middle-aged young male lying in the bed, in no acute distress. VITAL SIGNS: Blood pressure is 131/79, heart rate is 73 per minute, breathing at the rate of 16 per minute and temperature 97.9 degrees Fahrenheit. HEENT: Normocephalic, atraumatic. NECK: Supple. There are no carotid bruits. LUNGS: Clear. CARDIOPULMONARY: S1 and S2 audible. No murmurs. ABDOMEN: Soft and nontender. Bowel sounds are present. NEUROLOGIC: Mental Status: The patient is awake, alert, and oriented to time, place and person. Speech is nonfluent. Naming and repetition are normal. Memory and cognition are intact. Cranial Nerve Examination: Pupils are 4 mm bilaterally, reactive to light. Visual paige are full. Extraocular movements are intact. There is no facial asymmetry. Palate is upgoing bilaterally and tongue is midline. Motor examination: Tone shows positive cogwheeling in both upper extremities. Positive resting tremor noted more in the left hand than the right. Power is 4-5/5 all over. Reflexes are 1+ and symmetrical. Plantars downgoing bilaterally. LABORATORY DATA: Reviewed shows WBC of 9.0, hemoglobin 14.8, hematocrit 43.6 and platelets of 155. INR is 1.2. Sodium is 141, potassium 3.6, chloride 96, carbon dioxide content of 30, BUN of 11, creatinine 0.6 and glucose of 98. He had CT scan of the head done which shows no acute findings. IMPRESSION: 1. Syncope, rule out seizure versus cardiac arrhythmia. 2. Parkinson's disease. RECOMMENDATIONS: 1. The patient to have an electroencephalogram. 2. The patient to have cardiac monitoring to rule out any cardiac arrhythmias. 3. The patient to be continued on Sinemet at current dose. 4. The patient also to be continued on Mirapex. 5. The patient also to be continued on Cogentin. 6. The patient to have physical therapy for gait imbalance. 7. Please continue supportive care and treatment. Thank you for the opportunity to participate in the care of this patient. Dony Krueger MD
[2017-05-06] MEDS: Carbidopa/Levodopa 25/100 CR PO SCH ×3 (05:21→18:00)
[2017-05-06] MEDS: Sodium Bicarbonate 8.4% 50 MEQ in Dextrose 5% In Water 1,000 ML IV SCH ×5 (05:50→21:50)
--- NOTE | 2017-05-06 10:38 | VASCLAB ---
PROCEDURE: HISTORY: syncope COMPARISON: None available. TECHNIQUE: Grayscale and duplex Doppler evaluation of the cervical carotid and vertebral arteries were performed. The common carotid, carotid bifurcations and cervical Internal Carotid Artery (ICA) and proximal External Carotid Artery (ECA) were evaluated. The vertebral arteries were evaluated for gross patency and flow direction. Report prepared by Dima Perez, BS, RVT FINDINGS: RIGHT CAROTID ARTERIES: 1. Common Carotid Artery: No significant focal plaque formation of the right common carotid artery. Maximum Peak Systolic velocity: 82 cm/sec: End-diastolic velocity 20 cm/sec. 2. Carotid Bifurcation: plaque formation. Maximum Peak Systolic velocity: 71 cm/sec: End-diastolic velocity 15 cm/sec. 3. Internal Carotid Artery: Plaque description: 3.1. Proximal Segment: Peak systolic velocity 71 cm/sec: End-diastolic velocity 15 cm/sec - % stenosis 0-15% 3.2. Middle Segment: Peak systolic velocity 60 cm/sec: End-diastolic velocity 20 cm/sec - % stenosis 0-15% 3.3. Distal Segment: Peak systolic velocity 68 cm/sec: End-diastolic velocity 26 cm/sec - % stenosis 0-15% 4. External Carotid Artery: No significant focal plaque formation. Peak systolic velocity 83 cm/sec 5. ICA/CCA Ratio: 1.0 LEFT CAROTID ARTERIES: 1. Common Carotid Artery: No significant focal plaque formation of the left common carotid artery. Maximum Peak Systolic velocity: 75 cm/sec: End-diastolic velocity 17 cm/sec. 2. Carotid Bifurcation: plaque formation. Maximum Peak Systolic velocity: 67 cm/sec: End-diastolic velocity 17 cm/sec. 3. Internal Carotid Artery: Plaque description: 3.1. Proximal Segment: Peak systolic velocity 53 cm/sec: End-diastolic velocity 16 cm/sec - % stenosis 0-15% 3.2. Middle Segment: Peak systolic velocity 60 cm/sec: End-diastolic velocity 19 cm/sec - % stenosis 0-15% 3.3. Distal Segment: Peak systolic velocity 58 cm/sec: End-diastolic velocity 24 cm/sec - % stenosis 0-15% 4. External Carotid Artery: No significant focal plaque formation. Peak systolic velocity 110 cm/sec 5. ICA/CCA Ratio: 0.9 VERTEBRAL ARTERIES: 1. Right Vertebral Artery: The right vertebral artery flow direction is antegrade. 2. Left Vertebral Artery: The left vertebral artery flow direction is antegrade. OTHER FINDINGS: 1. Right Brachial Blood pressure: 134 mmHg. 2. Left Brachial Blood pressure: 134 mmHg. IMPRESSION: RIGHT: Duplex scan does not suggest hemodynamically significant stenosis of the right extracranial carotid arteries. LEFT: Duplex scan does not suggest hemodynamically significant stenosis of the left extracranial carotid arteries.
--- NOTE | 2017-05-06 13:55 | CP.PCM.PN ---
<Jason Puentes - Last Filed: 05/06/17 13:52> Subjective - Date & Time of Evaluation Date of Evaluation: 05/06/17 Time of Evaluation: 13:53 - Subjective Subjective: PGY1 Note for Dr. Mcgee HPI: patient seen and examined at bedside,. Still complaining of pain mostly in the R. arm but it has gotten significantly better. Says the neurologist came to see him. No other Complaints at this time. Denies N/V/D/SOB/CP/F Objective - Vital Signs/Intake and Output Vital Signs (last 24 hours): Temp Pulse Resp BP Pulse Ox 98 F 75 20 168/62 H 95 05/06/17 07:00 05/06/17 07:00 05/06/17 07:00 05/06/17 07:00 05/06/17 07:00 Intake and Output: 05/06/17 05/06/17 06:59 18:59 Intake Total 2840 Output Total 1100 Balance 1740 - Medications Medications: Current Medications Benztropine Mesylate (Cogentin) 2 mg PO DAILY [facility] Last Admin: 05/06/17 10:23 Dose: 2 mg Carbidopa/Levodopa (Sinemet Cr) 1 tab PO Q6 [facility] Last Admin: 05/06/17 13:02 Dose: 1 tab Docusate Sodium (Colace) 100 mg PO DAILY [facility] Last Admin: 05/06/17 10:22 Dose: 100 mg Famotidine (Pepcid) 20 mg PO BID [facility] Last Admin: 05/06/17 10:22 Dose: 20 mg Heparin Sodium (Porcine) (Heparin) 5,000 units SC Q8 [facility] Last Admin: 05/06/17 05:21 Dose: 5,000 units Sodium Bicarbonate 50 meq/ (Dextrose) 1,050 mls @ 150 mls/hr IV .Q7H [facility] Last Admin: 05/06/17 06:26 Dose: 150 mls/hr Magnesium Citrate (Citrate Of Mag) 300 ml PO ONCE PRN PRN Reason: Constipation Morphine Sulfate (Morphine) 1 mg IVP Q4H PRN PRN Reason: Pain, moderate (4-7) Pramipexole Dihydrochloride (Mirapex) 0.25 mg PO TID [facility] Last Admin: 05/06/17 10:23 Dose: 0.25 mg Trihexyphenidyl HCl (Artane) 2 mg PO TID [facility] Last Admin: 05/06/17 10:23 Dose: 2 mg - Labs Labs: 05/04/17 06:16 05/05/17 07:24 PT 14.3 SECONDS (9.7-12.2) H 05/03/17 20:53 INR 1.2 05/03/17 20:53 APTT 26 SECONDS (21-34) 05/03/17 20:53 - Constitutional Appears: Chronically Ill - Head Exam Head Exam: ATRAUMATIC, NORMAL INSPECTION, NORMOCEPHALIC - Eye Exam Eye Exam: EOMI - ENT Exam ENT Exam: Mucous Membranes Moist - Respiratory Exam Respiratory Exam: Clear to Ausculation Bilateral. absent: Rales, Rhonchi, Wheezes, Stridor - Cardiovascular Exam Cardiovascular Exam: REGULAR RHYTHM, RRR. absent: Bradycardia, Tachycardia, Gallop, JVD, Rubs - GI/Abdominal Exam GI & Abdominal Exam: Soft, Normal Bowel Sounds. absent: Distended, Tenderness - Extremities Exam Extremities Exam: absent: Joint Swelling, Tenderness - Neurological Exam Neurological Exam: Alert, Awake, Oriented x3 Additional comments: pill rolling tremor on exam - Psychiatric Exam Psychiatric exam: Normal Affect, Normal Mood - Skin Skin Exam: Dry, Intact, Normal Color, Warm Assessment and Plan - Assessment and Plan (Free Text) Assessment: Rhabdomyolysis, patient has repeated falls daily and prolonged period of time on the ground * F/U CPK * Monitor CPK daily * D5W @ 150mls/hr + 1 amp of bicarb R/O ACS: * Serial ABDIFATAH and EKGs - Negative * Lipid panel * TG 46 * Chol 89 * LDL 52 * HDL 31 * TSH 1.37 * Echo Mild-Mod AR, Grade 1 abnormal relaxation pattern on transmitral doppler, EF 66% * Carotid doppler: negative Parkinson disease, repeated falling * Neuro ([facility]) * F/U EEG * Benztropine 2mg PO daily * Sinemet 1 tab PO q6 * Mirapex 0.25mg PO TID * Artane 2mg PO TID * Head CT: No acute findings; No hemorrhage * Chest CT: No pulmonary embolism. Trace bibasilar atelactasis * Pelvis X-ray: no fracture * Pelvic CT: unremarkable Prophylactic measure SCDs Heparin 5,000 units SC Q8H Pepcid 20mg PO BID PT/OT <Mcgee,Isma H - Last Filed: 05/06/17 16:27> Objective - Vital Signs/Intake and Output Vital Signs (last 24 hours): Temp Pulse Resp BP Pulse Ox 98.4 F 77 20 141/78 99 05/06/17 15:15 05/06/17 15:15 05/06/17 15:15 05/06/17 15:15 05/06/17 15:15 Intake and Output: 05/06/17 05/06/17 06:59 18:59 Intake Total 2840 Output Total 1100 Balance 1740 - Medications Medications: Current Medications Benztropine Mesylate (Cogentin) 2 mg PO DAILY [facility] Last Admin: 05/06/17 10:23 Dose: 2 mg Carbidopa/Levodopa (Sinemet Cr) 1 tab PO Q6 [facility] Last Admin: 05/06/17 13:02 Dose: 1 tab Docusate Sodium (Colace) 100 mg PO DAILY [facility] Last Admin: 05/06/17 10:22 Dose: 100 mg Famotidine (Pepcid) 20 mg PO BID [facility] Last Admin: 05/06/17 10:22 Dose: 20 mg Heparin Sodium (Porcine) (Heparin) 5,000 units SC Q8 [facility] Last Admin: 05/06/17 14:09 Dose: 5,000 units Sodium Bicarbonate 50 meq/ (Dextrose) 1,050 mls @ 150 mls/hr IV .Q7H [facility] Last Admin: 05/06/17 14:37 Dose: 150 mls/hr Magnesium Citrate (Citrate Of Mag) 300 ml PO ONCE PRN PRN Reason: Constipation Morphine Sulfate (Morphine) 1 mg IVP Q4H PRN PRN Reason: Pain, moderate (4-7) Pramipexole Dihydrochloride (Mirapex) 0.25 mg PO TID [facility] Last Admin: 05/06/17 14:09 Dose: 0.25 mg Trihexyphenidyl HCl (Artane) 2 mg PO TID [facility] Last Admin: 05/06/17 14:09 Dose: 2 mg - Labs Labs: 05/04/17 06:16 05/05/17 07:24 PT 14.3 SECONDS (9.7-12.2) H 05/03/17 20:53 INR 1.2 05/03/17 20:53 APTT 26 SECONDS (21-34) 05/03/17 20:53 Attending/Attestation - Attestation I have personally seen and examined this patient.: Yes I have fully participated in the care of the patient.: Yes I have reviewed all pertinent clinical information, including history, physical exam and plan: Yes Notes (Text): 05/06/17 16:17 Medical Attending: Patient was seen and examined by me, agree with the above note by the resident. Pending lab work as of this morning however the CPK did decrease yesterday and on exam and discussion with the patient he explains he has had much less muscle aches and arm pain at this time. Will continue with IVF + bicarb, also will need a CXRAY to assess if he maybecome fluid overload. Continue to follow CPKs thank you Isma Mcgee
--- NOTE | 2017-05-06 14:36 | RAD ---
HISTORY: R/O effusion COMPARISON: Chest x-ray and CTA chest both performed 05/03/17 TECHNIQUE: Chest, one view. FINDINGS: Examination limited by habitus. LUNGS: No focal consolidation. Please note that chest x-ray has limited sensitivity for the detection of pulmonary masses. PLEURA: No significant pleural effusion identified. No definite pneumothorax . CARDIOVASCULAR: Heart size appears top normal. Ectatic aorta. OSSEOUS STRUCTURES: No acute osseous abnormality identified. VISUALIZED UPPER ABDOMEN: Elevation of the right hemidiaphragm. OTHER FINDINGS: None. IMPRESSION: No focal consolidation, significant pleural effusion, or definite pneumothorax identified.
--- NOTE | 2017-05-06 16:35 | PN ---
SUBJECTIVE: The patient is lying on the bed, in no acute distress, denies having any headache or dizziness. PHYSICAL EXAMINATION: VITAL SIGNS: His blood pressure is 168/62, heart rate is 75 per minute, breathing at the rate of 16 per minute, temperature is 98 degree Fahrenheit. HEENT: Head is normocephalic and atraumatic. NECK: Supple. There are no carotid bruits. LUNGS: Clear. CVS: S1 and S2 audible. No murmurs. ABDOMEN: Soft, nontender. Bowel sounds are present. NEUROLOGY: Mental Status: The patient is awake, alert, and oriented to time, place, and person. Speech is slightly scanning in nature. Naming and repetition are normal. Memory and cognition are intact. Cranial nerves: Pupils are 4 mm bilaterally, reactive to light. Visual paige are full. Extraocular movements are intact. There is no facial asymmetry. Palate is upgoing bilaterally and tongue is midline. Motor: Tone shows positive cogwheeling in both upper extremities, positive resting tremor noted in both upper extremities, more on the left than on the lateral right. Power is 4-5/5 all over. Plantars downgoing bilaterally. LABORATORY DATA: Reviewed. EEG normal. Carotid Doppler, no significant stenosis. IMPRESSION: 1. Status post syncope. 2. Parkinson disease. 3. Gait dysfunction secondary to Parkinson disease. RECOMMENDATIONS: 1. The patient has no further episode of passing out. 2. The patient to be continued on Sinemet. 3. The patient also to be continued on his Mirapex and Cogentin. 4. The patient is to have physical therapy for gait and balance. The patient is a good candidate for rehabilitation placement. 5. Please continue other treatment and supportive care. 6. No further neurological recommendations at present. Please call Neurology on an as-needed basis. Thank you for the opportunity to participate in the care of this patient. Dony Krueger MD
[2017-05-06 20:04] LABS: BASO % 0.3 % (0.0-2.0); EOS # 0.3 K/uL (0.0-0.7); EOS % 4.5 % (0.0-4.0); HEMATOCRIT 44.9 % (35.0-51.0); LYMPH # 1.6 K/uL (1.0-4.3); MEAN CELL VOLUME 90.9 fL (80.0-94.0); MEAN CORPUSCULAR HEMOGLOBIN 31.9 pg (27.0-31.0); MEAN CORPUSCULAR HGB CONC 35.1 g/dL (33.0-37.0); MEAN PLATELET VOLUME 9.1 fL (7.2-11.7); MONO # 0.5 K/uL (0.0-0.8); MONO % 7.2 % (0.0-10.0); RED CELL DISTRIBUTION WIDTH 13.7 % (11.5-14.5); WHITE BLOOD COUNT 7.6 K/uL (4.8-10.8)
[2017-05-06 20:17] LABS: ALKALINE PHOSPHATASE 75 U/L (38-126); ALT/SGPT 134 U/L (21-72); AST/SGOT 548 U/L (17-59); BILIRUBIN,TOTAL 0.7 mg/dL (0.2-1.3); BLOOD UREA NITROGEN 11 mg/dL (9-20); CALCIUM 8.5 mg/dl (8.6-10.4); CARBON DIOXIDE 32 mmol/L (22-30); CHLORIDE 93 mmol/L (98-107); GFR AFRICAN-AMERICAN > 60; GLUCOSE,RANDOM 107 mg/dL (75-110); POTASSIUM 3.2 mmol/L (3.6-5.2); SODIUM 138 mmol/L (132-148); TOTAL PROTEIN 6.9 g/dL (6.3-8.3)
[2017-05-06] MEDS ORDERED: Potassium Chloride 20 mEq ER Tab PO ONE (21:30)
[2017-05-07] MEDS: Carbidopa/Levodopa 25/100 CR PO SCH ×3 (00:19→11:29)
--- NOTE | 2017-05-07 00:33 | CARD ---
APPROVED REPORT EKG Measurement Heart [id number] <Conclusion> Normal sinus rhythm Possible Inferior infarct, age undetermined Abnormal ECG
[2017-05-07 02:34] VITALS: O2SAT 95
--- NOTE | 2017-05-07 04:53 | EEG ---
DATE: INTRODUCTION: This is a digitally recorded EEG monitoring using standard EEG montages. On background rhythm, the EEG shows a background activity of 8-9 Hz alpha activity in parieto-occipital region. The EEG activity is bilaterally symmetrical and synchronous. There is attenuation of the background activity on eye opening. Abnormal potentials; no spike, sharp waves, or focal slowing was seen. Photic stimulation and hyperventilation; photic stimulation did not reveal any abnormality. Hyperventilation was not performed. IMPRESSION: Normal electroencephalogram. No epileptiform activity seen in this electroencephalogram recording. Dony Krueger MD
[2017-05-07] MEDS: Sodium Bicarbonate 8.4% 50 MEQ in Dextrose 5% In Water 1,000 ML IV SCH ×2 (05:52→05:54)
[2017-05-07 07:48] LABS: BASO % 0.4 % (0.0-2.0); EOS # 0.4 K/uL (0.0-0.7); EOS % 4.5 % (0.0-4.0); HEMATOCRIT 45.7 % (35.0-51.0); LYMPH # 1.6 K/uL (1.0-4.3); LYMPH % 18.8 % (20.0-40.0); MEAN CELL VOLUME 91.5 fL (80.0-94.0); MEAN CORPUSCULAR HEMOGLOBIN 31.2 pg (27.0-31.0); MEAN CORPUSCULAR HGB CONC 34.1 g/dL (33.0-37.0); MEAN PLATELET VOLUME 9.3 fL (7.2-11.7); MONO # 0.5 K/uL (0.0-0.8); MONO % 6.5 % (0.0-10.0); RED CELL DISTRIBUTION WIDTH 14.1 % (11.5-14.5); WHITE BLOOD COUNT 8.3 K/uL (4.8-10.8)
[2017-05-07 08:08] LABS: ALKALINE PHOSPHATASE 68 U/L (38-126); ALT/SGPT 49 U/L (21-72); AST/SGOT 464 U/L (17-59); BLOOD UREA NITROGEN 10 mg/dL (9-20); CALCIUM 8.6 mg/dl (8.6-10.4); CARBON DIOXIDE 32 mmol/L (22-30); CHLORIDE 95 mmol/L (98-107); GFR AFRICAN-AMERICAN > 60; GLUCOSE,RANDOM 94 mg/dL (75-110); POTASSIUM 3.7 mmol/L (3.6-5.2); SODIUM 138 mmol/L (132-148); TOTAL PROTEIN 6.9 g/dL (6.3-8.3)
[2017-05-07 08:40] VITALS: BP 115/76; PULSE 68; RESP 18; TEMP 97.8
[2017-05-07] MEDS ORDERED: Potassium Chloride 20 mEq ER Tab PO ONE (10:00)
--- NOTE | 2017-05-07 11:40 | CP.PCM.DIS ---
<Jason Puentes - Last Filed: 05/07/17 13:49> Provider - Provider Date of Admission: 05/03/17 23:37 Attending physician: Isma Mcgee DO Primary care physician: Indra Consults: Neuro: Shekhar Time Spent in preparation of Discharge (in minutes): 45 Hospital Course - Lab Results Lab Results: Most Recent Lab Values WBC 8.3 K/uL (4.8-10.8) 05/07/17 07:35 RBC 4.99 Mil/uL (4.40-5.90) 05/07/17 07:35 Hgb 15.6 g/dL (12.0-18.0) 05/07/17 07:35 Hct 45.7 % (35.0-51.0) 05/07/17 07:35 MCV 91.5 fL (80.0-94.0) 05/07/17 07:35 MCH 31.2 pg (27.0-31.0) H 05/07/17 07:35 MCHC 34.1 g/dL (33.0-37.0) 05/07/17 07:35 RDW 14.1 % (11.5-14.5) 05/07/17 07:35 Plt Count 170 K/uL (130-400) 05/07/17 07:35 MPV 9.3 fL (7.2-11.7) 05/07/17 07:35 Neut % (Auto) 69.8 % (50.0-75.0) 05/07/17 07:35 Lymph % (Auto) 18.8 % (20.0-40.0) L 05/07/17 07:35 Garvin % (Auto) 6.5 % (0.0-10.0) 05/07/17 07:35 Eos % (Auto) 4.5 % (0.0-4.0) H 05/07/17 07:35 Baso % (Auto) 0.4 % (0.0-2.0) 05/07/17 07:35 Neut # 5.8 K/uL (1.8-7.0) 05/07/17 07:35 Lymph # 1.6 K/uL (1.0-4.3) 05/07/17 07:35 Garvin # 0.5 K/uL (0.0-0.8) 05/07/17 07:35 Eos # 0.4 K/uL (0.0-0.7) 05/07/17 07:35 Baso # 0.0 K/uL (0.0-0.2) 05/07/17 07:35 Neutrophils % (Manual) 84 % (50-75) H 05/03/17 20:53 Lymphocytes % (Manual) 8 % (20-40) L 05/03/17 20:53 Monocytes % (Manual) 8 % (0-10) 05/03/17 20:53 Platelet Estimate Normal (NORMAL) 05/03/17 20:53 Large Platelets Present 05/03/17 20:53 PT 14.3 SECONDS (9.7-12.2) H 05/03/17 20:53 INR 1.2 05/03/17 20:53 APTT 26 SECONDS (21-34) 05/03/17 20:53 D-Dimer, Quantitative 403 ng/mlDDU (0-243) H 05/03/17 20:53 Sodium 138 mmol/L (132-148) 05/07/17 07:35 Potassium 3.7 mmol/L (3.6-5.2) 05/07/17 07:35 Chloride 95 mmol/L (98-107) L 05/07/17 07:35 Carbon Dioxide 32 mmol/L (22-30) H 05/07/17 07:35 Anion Gap 15 (10-20) 05/07/17 07:35 BUN 10 mg/dL (9-20) 05/07/17 07:35 Creatinine 0.5 MG/DL (0.8-1.5) L 05/07/17 07:35 Est GFR ( Amer) > 60 05/07/17 07:35 Est GFR (Non-Af Amer) > 60 05/07/17 07:35 Random Glucose 94 mg/dL (75-110) 05/07/17 07:35 Hemoglobin A1c 5.2 % (4.2-6.5) 05/04/17 06:16 Calcium 8.6 mg/dl (8.6-10.4) 05/07/17 07:35 Magnesium 1.9 mg/dL (1.6-2.3) 05/03/17 20:53 Total Bilirubin 1.0 mg/dL (0.2-1.3) 05/07/17 07:35 AST 464 U/L (17-59) H 05/07/17 07:35 ALT 49 U/L (21-72) 05/07/17 07:35 Alkaline Phosphatase 68 U/L (38-126) 05/07/17 07:35 Total Creatine Kinase 38161 U/L (55-170) H 05/06/17 19:51 CK-MB (Mass) 107 ng/mL (0.0-3.38) H 05/04/17 11:01 Troponin I, Quant 0.0150 ng/mL (0.00-0.120) 05/04/17 11:01 NT-Pro-B Natriuret Pep 181 pg/mL (0-900) 05/03/17 20:53 Total Protein 6.9 g/dL (6.3-8.3) 05/07/17 07:35 Albumin 3.4 g/dL (3.5-5.0) L 05/07/17 07:35 Globulin 3.4 gm/dL (2.2-3.9) 05/07/17 07:35 Albumin/Globulin Ratio 1.0 (1.0-2.1) 05/07/17 07:35 Triglycerides 46 mg/dL (0-149) D 05/04/17 06:16 Cholesterol 89 mg/dL (0-199) 05/04/17 06:16 LDL Cholesterol Direct 52 mg/dL (0-129) 05/04/17 06:16 HDL Cholesterol 31 mg/dL (30-70) 05/04/17 06:16 TSH 3rd Generation 1.37 mIU/L (0.46-4.68) 05/04/17 06:16 Urine Color Risa (YELLOW) 05/03/17 21:05 Urine Clarity Clear (Clear) 05/03/17 21:05 Urine pH 6.0 (5.0-8.0) 05/03/17 21:05 Ur Specific [place] 1.024 (1.003-1.030) 05/03/17 21:05 Urine Protein 2+ mg/dL (NEGATIVE) H 05/03/17 21:05 Urine Glucose (UA) Normal mg/dL (Normal) 05/03/17 21:05 Urine Ketones Trace mg/dL (NEGATIVE) 05/03/17 21:05 Urine Blood 3+ (NEGATIVE) H 05/03/17 21:05 Urine Nitrate Negative (NEGATIVE) 05/03/17 21:05 Urine Bilirubin Negative (NEGATIVE) 05/03/17 21:05 Urine Urobilinogen Normal mg/dL (0.2-1.0) 05/03/17 21:05 Ur Leukocyte Esterase Neg Leena/uL (Negative) 05/03/17 21:05 Urine WBC (Auto) 5 /hpf (0-5) 05/03/17 21:05 Urine RBC (Auto) 5 /hpf (0-3) H 05/03/17 21:05 Urine Bacteria Occ (<OCC) H 05/03/17 21:05 - Hospital Course Hospital Course: Patient is a 52 year old male with past medical history of parkinsons, who presents to the ED via ambulance for unwitnessed syncope/fall. Patient reports that he fell this afternoon on his way out of the bathroom. Patient reports that he was on the floor for 45 minutes and was later found by his brother in law. As per nursing, patient's family members report that they believe that patient lost consciousness. Patient states that he does not remember much about his fall. Patient denies the use of assisted device at home. Patient reports a 8 /10 mid-low back pain since his fall. Patient denies headache, visual disturbances, chest pain, palpitations, abdominal pain, dizziness, but admits to mid-lower back pain. Patient is a 52 year old man that presented to the ED because he felt weak and dizzy at home causing him to fall. No acute findings found on head CT. No acute findings on chest xray. Degenerative changes seen in the bilateral sacroiliac and hip joints noted on pelvis x-ray. Chest ct was unremarkable. Dr. Cary was consulted for a carotid Doppler study. The study revealed no noticeable stenosis , study was unremarkable. An echo was performed and noted mild left ventricular hypertrophy. Due to the patients episode of passing out, Dr. Krueger was consulted. He recommended that the patient continue on his Parkinsons medication , have PT assess his gate, and be worked up to rule out a seizure or cardiac arrhythmia. EEG was performed and no epileptiform activity was seen. Dr. Krueger noted no further neurological intervention need at this time. Patient is ready for discharge and will be given the appropriate information for [facility] rehab. - Date & Time of H&P Date of H&P: 05/04/17 Time of H&P: 00:05 Discharge Exam - Head Exam Head Exam: ATRAUMATIC, NORMAL INSPECTION, NORMOCEPHALIC - Eye Exam Eye Exam: EOMI Pupil Exam: NORMAL ACCOMODATION - ENT Exam ENT Exam: Mucous Membranes Moist - Respiratory Exam Respiratory Exam: NORMAL BREATHING PATTERN, UNREMARKABLE - Cardiovascular Exam Cardiovascular Exam: REGULAR RHYTHM - GI/Abdominal Exam GI & Abdominal Exam: Normal Bowel Sounds, Soft. absent: Distended, Tenderness - Neurological Exam Neurological exam: Alert, Normal Gait, Oriented x3 - Psychiatric Exam Psychiatric exam: Normal Affect, Normal Mood - Skin Skin Exam: Dry, Intact, Normal Color, Warm Discharge Plan - Discharge Medications Prescriptions: Benztropine [Cogentin] 2 mg PO DAILY #30 Carbidopa/Levodopa [Sinemet Cr 25-100 Tablet] 1 ter PO Q6 #120 ter oxyCODONE/Acetaminophen [Percocet 5/325 mg Tab] 1 ea PO Q6 PRN #20 tab PRN Reason: Pain, Moderate (4-7) Trihexyphenidyl [Artane] 2 mg PO TID #90 - Follow Up Plan Condition: STABLE Disposition: REHAB FACILITY/REHAB UNIT Instructions: Parkinson Disease (DC), Syncope (DC), Syncope (GEN), Rhabdomyolysis (DC), Fall Prevention for Older Adults (GEN), Acute Abdominal Pain (DC), Acute Abdominal Pain (GEN), Fall Prevention (DC) Additional Instructions: Patient is stable and clear for discharge to [facility]. Patient should follow up with his primary care doctor in one weeks time. He should call to make an appointment. From a Neurology standpoint, patient is stable and clear for discharge. He should follow up with Dr. Corrigan in his office in one week. He should call the office to make an appointment. Please come to the ER if symptoms return Prescription instructions will be provided at Discharge. Referrals: Dony Krueger MD [Staff Provider] - <Isma Mcgee - Last Filed: 05/07/17 17:30> Provider - Provider Date of Admission: 05/03/17 23:37 Attending physician: Isma Mcgee DO Hospital Course - Lab Results Lab Results: Most Recent Lab Values WBC 8.3 K/uL (4.8-10.8) 05/07/17 07:35 RBC 4.99 Mil/uL (4.40-5.90) 05/07/17 07:35 Hgb 15.6 g/dL (12.0-18.0) 05/07/17 07:35 Hct 45.7 % (35.0-51.0) 05/07/17 07:35 MCV 91.5 fL (80.0-94.0) 05/07/17 07:35 MCH 31.2 pg (27.0-31.0) H 05/07/17 07:35 MCHC 34.1 g/dL (33.0-37.0) 05/07/17 07:35 RDW 14.1 % (11.5-14.5) 05/07/17 07:35 Plt Count 170 K/uL (130-400) 05/07/17 07:35 MPV 9.3 fL (7.2-11.7) 05/07/17 07:35 Neut % (Auto) 69.8 % (50.0-75.0) 05/07/17 07:35 Lymph % (Auto) 18.8 % (20.0-40.0) L 05/07/17 07:35 Garvin % (Auto) 6.5 % (0.0-10.0) 05/07/17 07:35 Eos % (Auto) 4.5 % (0.0-4.0) H 05/07/17 07:35 Baso % (Auto) 0.4 % (0.0-2.0) 05/07/17 07:35 Neut # 5.8 K/uL (1.8-7.0) 05/07/17 07:35 Lymph # 1.6 K/uL (1.0-4.3) 05/07/17 07:35 Garvin # 0.5 K/uL (0.0-0.8) 05/07/17 07:35 Eos # 0.4 K/uL (0.0-0.7) 05/07/17 07:35 Baso # 0.0 K/uL (0.0-0.2) 05/07/17 07:35 Neutrophils % (Manual) 84 % (50-75) H 05/03/17 20:53 Lymphocytes % (Manual) 8 % (20-40) L 05/03/17 20:53 Monocytes % (Manual) 8 % (0-10) 05/03/17 20:53 Platelet Estimate Normal (NORMAL) 05/03/17 20:53 Large Platelets Present 05/03/17 20:53 PT 14.3 SECONDS (9.7-12.2) H 05/03/17 20:53 INR 1.2 05/03/17 20:53 APTT 26 SECONDS (21-34) 05/03/17 20:53 D-Dimer, Quantitative 403 ng/mlDDU (0-243) H 05/03/17 20:53 Sodium 138 mmol/L (132-148) 05/07/17 07:35 Potassium 3.7 mmol/L (3.6-5.2) 05/07/17 07:35 Chloride 95 mmol/L (98-107) L 05/07/17 07:35 Carbon Dioxide 32 mmol/L (22-30) H 05/07/17 07:35 Anion Gap 15 (10-20) 05/07/17 07:35 BUN 10 mg/dL (9-20) 05/07/17 07:35 Creatinine 0.5 MG/DL (0.8-1.5) L 05/07/17 07:35 Est GFR ( Amer) > 60 05/07/17 07:35 Est GFR (Non-Af Amer) > 60 05/07/17 07:35 Random Glucose 94 mg/dL (75-110) 05/07/17 07:35 Hemoglobin A1c 5.2 % (4.2-6.5) 05/04/17 06:16 Calcium 8.6 mg/dl (8.6-10.4) 05/07/17 07:35 Magnesium 1.9 mg/dL (1.6-2.3) 05/03/17 20:53 Total Bilirubin 1.0 mg/dL (0.2-1.3) 05/07/17 07:35 AST 464 U/L (17-59) H 05/07/17 07:35 ALT 49 U/L (21-72) 05/07/17 07:35 Alkaline Phosphatase 68 U/L (38-126) 05/07/17 07:35 Total Creatine Kinase 37296 U/L (55-170) H 05/06/17 19:51 CK-MB (Mass) 107 ng/mL (0.0-3.38) H 05/04/17 11:01 Troponin I, Quant 0.0150 ng/mL (0.00-0.120) 05/04/17 11:01 NT-Pro-B Natriuret Pep 181 pg/mL (0-900) 05/03/17 20:53 Total Protein 6.9 g/dL (6.3-8.3) 05/07/17 07:35 Albumin 3.4 g/dL (3.5-5.0) L 05/07/17 07:35 Globulin 3.4 gm/dL (2.2-3.9) 05/07/17 07:35 Albumin/Globulin Ratio 1.0 (1.0-2.1) 05/07/17 07:35 Triglycerides 46 mg/dL (0-149) D 05/04/17 06:16 Cholesterol 89 mg/dL (0-199) 05/04/17 06:16 LDL Cholesterol Direct 52 mg/dL (0-129) 05/04/17 06:16 HDL Cholesterol 31 mg/dL (30-70) 05/04/17 06:16 TSH 3rd Generation 1.37 mIU/L (0.46-4.68) 05/04/17 06:16 Urine Color Risa (YELLOW) 05/03/17 21:05 Urine Clarity Clear (Clear) 05/03/17 21:05 Urine pH 6.0 (5.0-8.0) 05/03/17 21:05 Ur Specific [place] 1.024 (1.003-1.030) 05/03/17 21:05 Urine Protein 2+ mg/dL (NEGATIVE) H 05/03/17 21:05 Urine Glucose (UA) Normal mg/dL (Normal) 05/03/17 21:05 Urine Ketones Trace mg/dL (NEGATIVE) 05/03/17 21:05 Urine Blood 3+ (NEGATIVE) H 05/03/17 21:05 Urine Nitrate Negative (NEGATIVE) 05/03/17 21:05 Urine Bilirubin Negative (NEGATIVE) 05/03/17 21:05 Urine Urobilinogen Normal mg/dL (0.2-1.0) 05/03/17 21:05 Ur Leukocyte Esterase Neg Leena/uL (Negative) 05/03/17 21:05 Urine WBC (Auto) 5 /hpf (0-5) 05/03/17 21:05 Urine RBC (Auto) 5 /hpf (0-3) H 05/03/17 21:05 Urine Bacteria Occ (<OCC) H 05/03/17 21:05 Attending/Attestation - Attestation I have personally seen and examined this patient.: Yes I have fully participated in the care of the patient.: Yes I have reviewed all pertinent clinical information, including history, physical exam and plan: Yes Notes (Text): 05/07/17 17:30 Medical Attending: Patient was seen and examined by me. Agree with the above note by medical office technologist. The patient explains that the muscle aches that he's been having his decreased substantially. We've also observed his CPK decrease quite a bit as well yesterday was down to 13,000 now it's under 10,000. As mentioned previously we had the patient on intravenous fluids with bicarbonate. His creatinine and renal function has stayed stable. As he goes to rehabilitation he should continue on the intravenous fluids however without the bicarbonate So at this time were to discharge the patient he's can have to go to subacute rehabilitation to help try to gain back some strength. This being said we've discussed with the patient before as well as the patient's family member that were concerned that the patient is at home by himself for such prolonged periods of time and were also concerned by what the family member says that sometimes she finds him after work on the ground when she comes home. At some point the patient may require an assisted living facility/intermediate due to the numerous falls he is having from the Parkinson's disease thank you Isma Mcgee
[2017-05-07] MEDS ORDERED: Sodium Chloride 0.9% 1,000 ML IV SCH (11:45)
--- NOTE | 2017-05-07 18:45 | CARD ---
APPROVED REPORT EKG Measurement Heart [id number] 168P30 [id number] <Conclusion> Normal sinus rhythm Nonspecific T wave abnormality Abnormal ECG
--- NOTE | 2017-05-07 18:46 | CARD ---
APPROVED REPORT EKG Measurement Heart [id number] HI 164P6 [id number] <Conclusion> Normal sinus rhythm Nonspecific ST/T abnormality Abnormal Electrocardiogram
== END 2017-05-07 14:18 | DRG 57 ==
LOC: C.ER 19:50 → C.6T 23:37
PROVIDERS: ADMIT Hospitalist; ATTEND Hospitalist
DX: G20 Parkinson's disease (principal); M62.82 Rhabdomyolysis; S06.9X9A Unspecified intracranial injury with loss of consciousness of unspecified duration, initial encounter; W18.39XA Other fall on same level, initial encounter; R55 Syncope and collapse; R26.9 Unspecified abnormalities of gait and mobility; S80.10XA Contusion of unspecified lower leg, initial encounter; S40.029A Contusion of unspecified upper arm, initial encounter

== ENCOUNTER 2017-06-07 08:51 | Inpatient (IN) | payer MEDICARE ==
--- NOTE | 2017-06-07 09:26 | C.PDOC ---
History Of Present Illness 52-year-old male, PMHx includes severe case of Parkinsons disease, presents to the emergency department with complaints of recurring falls. Patient was seen in ER in May, and admitted after he had several falls, and diagnosed with rhabdo. Patient was discharged to rehab, where he spent several days. Dr Dony Krueger saw patient while he was in Rehab and changed his medicine. several days later patient was discharged home. Patient comes in today and states he cannot stay home because he cant walk. States he had three falls today, because his legs are getting progressively tremulous and weak. States that first, he fell backwards and hit his head, his second and third fall, he fell forward. States that his cannot take care of him. No other complaints at this time Time Seen by Provider: 06/07/17 09:11 Chief Complaint (Nursing): Headache History Per: Patient, Family History/Exam Limitations: no limitations Onset/Duration Of Symptoms: Days Current Symptoms Are (Timing): Still Present Severity: Moderate Past Medical History Reviewed: Historical Data, Nursing Documentation, Vital Signs Vital Signs: Last Vital Signs Temp 98.2 F 06/07/17 17:00 Pulse 83 06/07/17 17:00 Resp 20 06/07/17 17:00 BP 131/85 06/07/17 17:00 Pulse Ox 99 06/07/17 17:00 - Medical History PMH: Parkinson's Disease Denies: Chronic Kidney Disease Family History: States: No Known Family Hx - Social History Hx Tobacco Use: No Hx Alcohol Use: No Hx Substance Use: No - Immunization History Hx Tetanus Toxoid Vaccination: No Hx Influenza Vaccination: Yes Hx Pneumococcal Vaccination: Yes Review Of Systems Except As Marked, All Systems Reviewed And Found Negative. Constitutional: Positive for: Weakness. Negative for: Fever, Chills Cardiovascular: Negative for: Chest Pain, Palpitations Respiratory: Negative for: Cough, Shortness of Breath Gastrointestinal: Negative for: Nausea, Vomiting, Abdominal Pain Musculoskeletal: Negative for: Back Pain Neurological: Positive for: Weakness. Negative for: Numbness, Headache, Dizziness Physical Exam - Physical Exam Appears: Non-toxic, No Acute Distress, Other Skin: Warm, Dry, No Rash Head: Atraumatic, Normacephalic Eye(s): bilateral: Normal Inspection, PERRL Nose: Normal Oral Mucosa: Moist Lips: Normal Appearing Neck: Normal ROM Cardiovascular: Rhythm Regular Respiratory: Normal Breath Sounds, No Accessory Muscle Use Extremity: Normal ROM Neurological/Psych: Oriented x3, Other ( severe resting tremor.) ED Course And Treatment - Laboratory Results Result Diagrams: 06/07/17 09:48 06/07/17 09:48 ECG Interpretation: Normal, No Acute Changes Rate From EC O2 Sat by Pulse Oximetry: 93 - CT Scan/US Head CT Other Rad Studies (CT/US): Read By Radiologist, Radiology Report Reviewed CT/US Interpretation: Accession No. : [id number]. Patient Name / ID : ED MATOS / [id number]. Exam Date : 06/07/2017 11:19:59 ( Approved ). Study Comment : Sex / Age : M / 52Y. Creator : Pa Hickman MD. Dictator : Pa Hickman MD. Nanotechnician : Cashier Host/Hostess : Pa Hickman MD. Approver2 : Report Date : 06/07/2017 12:27:57. My Comment : . PROCEDURE: CT HEAD WITHOUT CONTRAST. HISTORY: fall, hit his head. COMPARISON: Comparison is made to 05/03/2017. TECHNIQUE: Axial computed tomography images were obtained through the head/brain without intravenous contrast. Radiation dose: Total exam DLP = 955.53 mGy-cm. This CT exam was performed using one or more of the following dose reduction techniques: Automated exposure control, adjustment of the mA and/or kV according to patient size, and/or use of iterative reconstruction technique. FINDINGS: HEMORRHAGE: No intracranial hemorrhage. BRAIN: No mass effect or edema. No atrophy or chronic microvascular ischemic changes. VENTRICLES: Unremarkable. No hydrocephalus. CALVARIUM: Unremarkable. PARANASAL SINUSES: Unremarkable as visualized. No significant inflammatory changes. MASTOID AIR CELLS: Unremarkable as visualized. No inflammatory changes. OTHER FINDINGS: None. IMPRESSION: No evidence of acute intracranial hemorrhage intracranial collection mass effect or midline shift. Medical Decision Making Medical Decision Making: Case discussed with Dr Kruegre, patient needs to be placed in senior care for severe condition, because he cannot be home. Case also discussed with Dr Jerrod Simpson to accept pt to medical floor and placement Disposition - Disposition Disposition: HOSPITALIZED Disposition Time: 13:53 Condition: FAIR - Clinical Impression Clinical Impression: Parkinson disease, Unable to ambulate - Scribe Statement The provider has reviewed the documentation as recorded by the Scribe (Jonah Barrera) All medical record entries made by the Scribe were at my direction and personally dictated by me. I have reviewed the chart and agree that the record accurately reflects my personal performance of the history, physical exam, medical decision making, and the department course for this patient. I have also personally directed, reviewed, and agree with the discharge instructions and disposition.
[2017-06-07] MEDS ORDERED: Sodium Chloride 0.9% 1,000 ML IV STA (09:27)
[2017-06-07 09:56] LABS: BASO % 0.4 % (0.0-2.0); EOS # 0.2 K/uL (0.0-0.7); EOS % 2.3 % (0.0-4.0); HEMATOCRIT 48.2 % (35.0-51.0); LYMPH # 1.3 K/uL (1.0-4.3); LYMPH % 16.9 % (20.0-40.0); MEAN CELL VOLUME 92.3 fL (80.0-94.0); MEAN CORPUSCULAR HEMOGLOBIN 31.1 pg (27.0-31.0); MEAN CORPUSCULAR HGB CONC 33.7 g/dL (33.0-37.0); MEAN PLATELET VOLUME 8.9 fL (7.2-11.7); MONO # 0.4 K/uL (0.0-0.8); MONO % 5.6 % (0.0-10.0); NRBC % 0.1 % (0.0-2.0); RED CELL DISTRIBUTION WIDTH 13.9 % (11.5-14.5); WHITE BLOOD COUNT 7.7 K/uL (4.8-10.8)
[2017-06-07 10:03] LABS: INR 1.2
[2017-06-07 10:10] LABS: CHLORIDE 100 mmol/L (98-107)
[2017-06-07 10:11] LABS: POTASSIUM 4.1 mmol/L (3.6-5.2); SODIUM 138 mmol/L (132-148)
[2017-06-07 10:13] LABS: ALB/GLOB RATIO 1.2 (1.0-2.1); ALKALINE PHOSPHATASE 64 U/L (38-126); AST/SGOT 42 U/L (17-59); BILIRUBIN,TOTAL 1.1 mg/dL (0.2-1.3); BLOOD UREA NITROGEN 16 mg/dL (9-20); CARBON DIOXIDE 25 mmol/L (22-30); GFR AFRICAN-AMERICAN > 60; TOTAL PROTEIN 8.3 g/dL (6.3-8.3)
[2017-06-07 10:14] LABS: ALT/SGPT 19 U/L (21-72); GLUCOSE,RANDOM 95 mg/dL (75-110)
[2017-06-07 10:38] LABS: RBC URINE 1 /hpf (0-3); URINE BILIRUBIN NEGATIVE (NEGATIVE); URINE BLOOD NEGATIVE (NEGATIVE); URINE COLOR Yellow (YELLOW); URINE GLUCOSE (UA) NORMAL (Normal); URINE KETONE 1+ mg/dL (NEGATIVE); URINE LEUKOCYTE ESTERASE NEG Leu/uL (Negative); URINE PROTEIN NEGATIVE (NEGATIVE); URINE UROBILINOGEN NORMAL mg/dL (0.2-1.0); WBC URINE 1 /hpf (0-5)
--- NOTE | 2017-06-07 12:29 | CT ---
PROCEDURE: CT HEAD WITHOUT CONTRAST. HISTORY: fall, hit his head COMPARISON: Comparison is made to 05/03/2017 TECHNIQUE: Axial computed tomography images were obtained through the head/brain without intravenous contrast. Radiation dose: Total exam DLP = 955.53 mGy-cm. This CT exam was performed using one or more of the following dose reduction techniques: Automated exposure control, adjustment of the mA and/or kV according to patient size, and/or use of iterative reconstruction technique. FINDINGS: HEMORRHAGE: No intracranial hemorrhage. BRAIN: No mass effect or edema. No atrophy or chronic microvascular ischemic changes. VENTRICLES: Unremarkable. No hydrocephalus. CALVARIUM: Unremarkable. PARANASAL SINUSES: Unremarkable as visualized. No significant inflammatory changes. MASTOID AIR CELLS: Unremarkable as visualized. No inflammatory changes. OTHER FINDINGS: None. IMPRESSION: No evidence of acute intracranial hemorrhage intracranial collection mass effect or midline shift.
--- NOTE | 2017-06-07 15:11 | CP.PCM.HP ---
History of Present Illness - History of Present Illness History of Present Illness: History and physical 52 M presents with falling striker off [id number] Marissa from [employer] Patient states he fell 3 times last night. He stated he fell as he got out of his bed. He walked to the kitchen to take medication and saw bright lights and was dizzy. Subsequently, patient fell twice. Patient states that when he hit his head he vomited. Patient also said he fell one time in the morning and did not want to fall again so he sat in a chair. Brother in law called ambulance to bring patient in hospital by his chair. Patient has a wheelchair at home. Patient denies Fever, Chills, chest pain. Patient admits to shortness of breath , abdominal pain, and leg pain. Patient states he feels that his Parkinson's medications are not working. PMH: Parkinson's PSH: Right knee ligament surgery Social history no Allergies no family history of HTN, CAD, Parkinson's Present on Admission - Present on Admission Any Indicators Present on Admission: No History of DVT/PE: No History of Uncontrolled Diabetes: No Urinary Catheter: No Decubitus Ulcer Present: No Review of Systems - EENT Eyes: As Per HPI - Cardiovascular Cardiovascular: As Per HPI - Respiratory Respiratory: As Per HPI - Gastrointestinal Gastrointestinal: As Per HPI - Genitourinary Genitourinary: As Per HPI - Neurological Neurological: As Per HPI Past Patient History - Infectious Disease Hx of Infectious Diseases: None - Past Medical History & Family History Past Medical History?: Yes - Past Social History Smoking Status: Never Smoked - CARDIAC Hx Cardiac Disorders: No - PULMONARY Hx Respiratory Disorders: No - NEUROLOGICAL Hx Parkinson's Disease: Yes - HEENT Hx HEENT Problems: No - RENAL Hx Chronic Kidney Disease: No - ENDOCRINE/METABOLIC Hx Endocrine Disorders: No - HEMATOLOGICAL/ONCOLOGICAL Hx Blood Disorders: No - INTEGUMENTARY Hx Dermatological Problems: No - MUSCULOSKELETAL/RHEUMATOLOGICAL Hx Falls: No - GASTROINTESTINAL Hx Gastrointestinal Disorders: No - GENITOURINARY/GYNECOLOGICAL Hx Genitourinary Disorders: No - PSYCHIATRIC Hx Substance Use: No - SURGICAL HISTORY Hx Surgeries: Yes Other/Comment: Right knee ligament sx - ANESTHESIA Hx Anesthesia: Yes Hx Anesthesia Reactions: No Hx Malignant Hyperthermia: No Meds Allergies/Adverse Reactions: Allergies Allergy/AdvReac Type Severity Reaction Status Date / Time No Known Allergies Allergy Verified 06/07/17 08:57 Physical Exam - Constitutional Appears: Non-toxic - Head Exam Head Exam: NORMAL INSPECTION - Eye Exam Eye Exam: EOMI, Normal appearance - ENT Exam ENT Exam: Mucous Membranes Moist - Neck Exam Neck exam: Positive for: Full Rom. Negative for: Tenderness - Respiratory Exam Respiratory Exam: Clear to Auscultation Bilateral, NORMAL BREATHING PATTERN. absent: Accessory Muscle Use, Respiratory Distress - Cardiovascular Exam Cardiovascular Exam: REGULAR RHYTHM, +S1, +S2. absent: Bradycardia, Tachycardia - GI/Abdominal Exam GI & Abdominal Exam: Distended, Soft, Tenderness (suprapubic tenderness ). absent: Firm, Guarding, Rigid - Extremities Exam Extremities exam: Positive for: normal inspection. Negative for: full ROM Additional comments: resting tremor full strength in bilateral upper extremities cogwheel rigidity appreciated - Neurological Exam Neurological exam: Alert - Psychiatric Exam Psychiatric exam: Flat Affect - Skin Skin Exam: Dry, Intact, Normal Color, Warm Results - Vital Signs Recent Vital Signs: Last Vital Signs Temp 97.9 F 06/07/17 08:54 Pulse 92 H 06/07/17 14:51 Resp 18 06/07/17 14:51 BP 131/83 06/07/17 14:51 Pulse Ox 97 06/07/17 14:51 - Labs Result Diagrams: 06/07/17 09:48 06/07/17 09:48 Labs: Laboratory Results - last 24 hr 06/07/17 06/07/17 06/07/17 08:59 09:48 09:48 WBC 7.7 RBC 5.22 Hgb 16.2 Hct 48.2 MCV 92.3 MCH 31.1 H MCHC 33.7 RDW 13.9 Plt Count 157 MPV 8.9 Neut % (Auto) 74.8 Lymph % (Auto) 16.[address] [place] % (Auto) 5.6 Eos % (Auto) 2.3 Baso % (Auto) 0.4 Neut # 5.7 Lymph # 1.3 [facility] # 0.4 Eos # 0.2 Baso # 0.0 PT 13.7 H INR 1.2 APTT 30 Sodium Potassium Chloride Carbon Dioxide Anion Gap BUN Creatinine Est GFR ( Amer) Est GFR (Non-Af Amer) POC Glucose (mg/dL) 104 Random Glucose Calcium Total Bilirubin AST ALT Alkaline Phosphatase Total Creatine Kinase CK-MB (Mass) Total Protein Albumin Globulin Albumin/Globulin Ratio Urine Color Urine Clarity Urine pH Ur Specific [place] Urine Protein Urine Glucose (UA) Urine Ketones Urine Blood Urine Nitrate Urine Bilirubin Urine Urobilinogen Ur Leukocyte Esterase Urine WBC (Auto) Urine RBC (Auto) 06/07/17 06/07/17 09:48 09:57 WBC RBC Hgb Hct MCV MCH MCHC RDW Plt Count MPV Neut % (Auto) Lymph % (Auto) [facility] % (Auto) Eos % (Auto) Baso % (Auto) Neut # Lymph # [facility] # Eos # Baso # PT INR APTT Sodium 138 Potassium 4.1 Chloride 100 Carbon Dioxide 25 Anion Gap 17 BUN 16 Creatinine 0.6 L Est GFR ( Amer) > 60 Est GFR (Non-Af Amer) > 60 POC Glucose (mg/dL) Random Glucose 95 Calcium 9.0 Total Bilirubin 1.1 AST 42 ALT 19 L D Alkaline Phosphatase 64 Total Creatine Kinase 196 H CK-MB (Mass) 3.60 H Total Protein 8.3 Albumin 4.5 Globulin 3.8 Albumin/Globulin Ratio 1.2 Urine Color Yellow Urine Clarity Clear Urine pH 6.0 Ur Specific Austin 1.024 Urine Protein Negative Urine Glucose (UA) Normal Urine Ketones 1+ H Urine Blood Negative Urine Nitrate Negative Urine Bilirubin Negative Urine Urobilinogen Normal Ur Leukocyte Esterase Neg Urine WBC (Auto) 1 Urine RBC (Auto) 1 Assessment & Plan - Assessment and Plan (Free Text) Assessment: 1) Fall history: EKG NSR CXR: No active disease Cardiology Consult: Dr. Deanna Krueger 2) Parkinson's Disease Continue home medication for Parkinson's 3) Suprapubic tenderness noted on Physical Exam, resolved Bladder scan ordered for suprapubic tenderness at time of visit in ED, nurse called to state patient voided 200cc 4)Pain Toradol 15mg IVP Q6H mod Pain 5) Consult manager research for placement. Patient is not safe to live at home discussed case with Dr. Arely Monte DO PGY1 - Date & Time Date: 06/07/17 Time: 19:42
[2017-06-07] MEDS ORDERED: Oxycodone/Acetaminophen 5/325 mg Tab PO PRN (16:41)
[2017-06-07] MEDS ORDERED: Carbidopa/Levodopa 25/100 CR PO SCH (18:00)
[2017-06-07] MEDS: Multiple Vitamins Tab PO SCH (18:14)
[2017-06-08] MEDS: Multiple Vitamins Tab PO SCH (09:29)
[2017-06-08 11:51] LABS: BASO % 0.4 % (0.0-2.0); EOS # 0.4 K/uL (0.0-0.7); EOS % 4.5 % (0.0-4.0); HEMATOCRIT 47.4 % (35.0-51.0); LYMPH # 1.6 K/uL (1.0-4.3); LYMPH % 20.3 % (20.0-40.0); MEAN CELL VOLUME 92.3 fL (80.0-94.0); MEAN CORPUSCULAR HEMOGLOBIN 31.8 pg (27.0-31.0); MEAN CORPUSCULAR HGB CONC 34.5 g/dL (33.0-37.0); MEAN PLATELET VOLUME 9.2 fL (7.2-11.7); MONO # 0.6 K/uL (0.0-0.8); MONO % 7.1 % (0.0-10.0)
[2017-06-08 12:07] LABS: CHLORIDE 99 mmol/L (98-107); POTASSIUM 4.2 mmol/L (3.6-5.2); SODIUM 136 mmol/L (132-148)
[2017-06-08 12:09] LABS: ALKALINE PHOSPHATASE 58 U/L (38-126); AST/SGOT 33 U/L (17-59); BILIRUBIN,TOTAL 1.1 mg/dL (0.2-1.3); CARBON DIOXIDE 26 mmol/L (22-30); GFR AFRICAN-AMERICAN > 60; TOTAL PROTEIN 8.2 g/dL (6.3-8.3)
[2017-06-08 12:10] LABS: ALT/SGPT 24 U/L (21-72); BLOOD UREA NITROGEN 17 mg/dL (9-20); CALCIUM 9.1 mg/dl (8.6-10.4); GLUCOSE,RANDOM 93 mg/dL (75-110); MAGNESIUM 1.9 mg/dL (1.6-2.3); PHOSPHOROUS 4.2 mg/dL (2.5-4.5)
--- NOTE | 2017-06-08 14:27 | CON ---
NEUROLOGY CONSULTATION REASON FOR CONSULTATION: Falls with history of Parkinson's disease. HISTORY OF PRESENTING ILLNESS: The patient is a 52-year-old male who was recently seen by me, came to the emergency room with falling at home 3 times last night. Apparently, the patient fell as he was trying to get out of bed. Apparently, the patient fell 2 to 3 times. The patient has significant gait dysfunction secondary to his Parkinson's disease. The patient did not hit his head. His [id number] called ambulance and the patient was brought to the hospital. The patient denies any other complaints. REVIEW OF SYSTEMS: Denies any headache, mild dizziness. Denies any chest pain, shortness of breath, abdominal pain, constipation, diarrhea, dysuria, cough, or sputum production. PAST MEDICAL HISTORY: Includes Parkinson's disease. MEDICATIONS: His medications at home included are trihexyphenidyl, benztropine, multivitamin, Sinemet one tablet every 6 hours, and Toradol. ALLERGIES: NO KNOWN DRUG ALLERGIES. SOCIAL HISTORY: The patient denies smoking, use of alcohol, or illicit drugs. FAMILY HISTORY: Reviewed and noncontributory to the case. PHYSICAL EXAMINATION: GENERAL: The patient is a middle-aged male lying on the bed, in no acute distress. VITAL SIGNS: His blood pressure is 125/84, heart rate is 60 per minute, breathing at the rate of 16 per minute, temperature is 97.5 degree Fahrenheit. HEENT: Head is normocephalic and atraumatic. NECK: Supple. There are no carotid bruit. LUNGS: Clear. CVS: S1 and S2 audible. No murmurs. ABDOMEN: Soft, nontender. Bowel sounds are present. NEUROLOGY: Mental Status: The patient was awake and alert, oriented to place and person. His speech is low. He follows simple commands. Cranial nerve examination: Pupils are 3 mm bilaterally, reactive to light. Visual paige are full. Extraocular movements are intact. There is no facial asymmetry. Palate is upgoing bilaterally and tongue is midline. Motor examination: Tone shows positive cogwheeling in both upper and lower extremities. Positive resting tremors are noted. Reflexes are 1+ and symmetrical. Gait is deferred. The patient has difficult time getting out of bed. Sensory examination: Intact to soft touch and pinprick. LABORATORY DATA: Labs reviewed shows WBC 7.7, hemoglobin 16.2, hematocrit 48.2 and platelets of 157. INR is 1.2. Sodium is 138, potassium 4.1, chloride of 100, carbon dioxide 25, BUN of 16, creatinine 0.6 and glucose of 95. He had a CT scan of the head done, which shows no acute intracranial pathology. IMPRESSION: Gait dysfunction with falls with history of advanced Parkinson's disease. RECOMMENDATIONS: 1. The patient to be continued on Sinemet. 2. The patient to be started on pramipexole 0.125 mg three times a day and the dose needs to be increased as he tolerates the medication. 3. The patient to have physical therapy for gait and balance. 4. The patient to be placed to subacute rehab. 5. The patient will require home care or long-term care placement as he has significant difficulty with gait and balance. 6. Social service is to see the patient. 7. Please continue other treatment and supportive care. Thank you for the opportunity to participate in the care of this patient. Dony Krueger MD
--- NOTE | 2017-06-08 15:29 | CP.PCM.PN ---
<Lucretia Uptona - Last Filed: 06/08/17 15:20> Subjective - Date & Time of Evaluation Date of Evaluation: 06/08/17 Time of Evaluation: 09:00 - Subjective Subjective: Medicine Note for Dr. Gonzalez Patient was seen and examined at bedside. 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 Denied fever, chills, headache, chest pain, abdominal pain, n/v/d/c, or urinary symptoms. Objective - Vital Signs/Intake and Output Vital Signs (last 24 hours): Temp Pulse Resp BP Pulse Ox 97.5 F L 60 18 125/84 99 06/08/17 07:40 06/08/17 07:40 06/08/17 07:40 06/08/17 07:40 06/08/17 07:40 Intake and Output: 06/08/17 06/08/17 06:59 18:59 Intake Total 240 Output Total 600 Balance -360 - Medications Medications: Current Medications Benztropine Mesylate (Cogentin) 2 mg PO DAILY [facility] Last Admin: 06/08/17 09:23 Dose: 2 mg Carbidopa/Levodopa (Sinemet) 1 tab PO Q6H [facility] Last Admin: 06/08/17 06:27 Dose: 1 tab Ketorolac Tromethamine (Toradol) 15 mg IVP Q6H [facility] Last Admin: 06/08/17 13:55 Dose: 15 mg Multivitamins (Hexavitamin) 1 tab PO DAILY [facility] Last Admin: 06/08/17 09:29 Dose: 1 tab Pramipexole Dihydrochloride (Mirapex) 0.125 mg PO TID [facility] Last Admin: 06/08/17 13:51 Dose: 0.125 mg Trihexyphenidyl HCl (Artane) 2 mg PO TID [facility] Last Admin: 06/08/17 13:50 Dose: 2 mg - Labs Labs: 06/08/17 11:44 06/08/17 11:44 PT 13.7 SECONDS (9.7-12.2) H 06/07/17 09:48 INR 1.2 06/07/17 09:48 APTT 30 SECONDS (21-34) 06/07/17 09:48 - Additional Findings Additional findings: - Head Exam Head Exam: NORMAL INSPECTION - Eye Exam Eye Exam: EOMI, Normal appearance - ENT Exam ENT Exam: Mucous Membranes Moist - Neck Exam Neck exam: Positive for: Full Rom. Negative for: Tenderness - Respiratory Exam Respiratory Exam: Clear to Auscultation Bilateral, NORMAL BREATHING PATTERN. absent: Accessory Muscle Use, Respiratory Distress - Cardiovascular Exam Cardiovascular Exam: REGULAR RHYTHM, +S1, +S2. absent: Bradycardia, Tachycardia - GI/Abdominal Exam GI & Abdominal Exam: Distended, Soft, Tenderness (suprapubic tenderness ). absent: Firm, Guarding, Rigid - Extremities Exam Extremities exam: Positive for: normal inspection. Negative for: full ROM Additional comments: resting tremor full strength in bilateral upper extremities cogwheel rigidity appreciated - Neurological Exam Neurological exam: Alert - Psychiatric Exam Psychiatric exam: Flat Affect - Skin Skin Exam: Dry, Intact, Normal Color, Warm Assessment and Plan - Assessment and Plan (Free Text) Plan: Parkinson Disease, repeated falling * Neurology consulted - Dr. Luis E Krueger- patient's personal neurologist - help appreciated * Head CT: No acute findings; No hemorrhage * EEG - on last admission - normal EEG * Benztropine 2mg PO daily * Sinemet 1 tab PO q6 * Mirapex 0.25mg PO TID * Artane 2mg PO TID Prophylactic Measures * GI PPX: Protonix 40mg PO daily * DVT PPX: SCDs, Lovenox 40mg SC daily * PT/OT * Dysphagia diet * Case Management consulted for penitentiary care placement DW JASON Arana DO, PGY-1 <Amanda Live - Last Filed: 06/08/17 17:54> Objective - Vital Signs/Intake and Output Vital Signs (last 24 hours): Temp Pulse Resp BP Pulse Ox 97.2 F L 73 18 111/73 99 06/08/17 15:43 06/08/17 15:43 06/08/17 15:43 06/08/17 15:43 06/08/17 15:43 Intake and Output: 06/08/17 06/08/17 06:59 18:59 Intake Total 240 Output Total 600 100 Balance -360 -100 - Medications Medications: Current Medications Benztropine Mesylate (Cogentin) 2 mg PO DAILY [facility] Last Admin: 06/08/17 09:23 Dose: 2 mg Carbidopa/Levodopa (Sinemet) 1 tab PO Q6H [facility] Last Admin: 06/08/17 06:27 Dose: 1 tab Enoxaparin Sodium (Lovenox) 40 mg SC DAILY [facility] Ketorolac Tromethamine (Toradol) 15 mg IVP Q6H [facility] Last Admin: 06/08/17 13:55 Dose: 15 mg Multivitamins (Hexavitamin) 1 tab PO DAILY [facility] Last Admin: 06/08/17 09:29 Dose: 1 tab Pantoprazole Sodium (Protonix Ec Tab) 40 mg PO DAILY [facility] Pramipexole Dihydrochloride (Mirapex) 0.125 mg PO TID [facility] Last Admin: 06/08/17 13:51 Dose: 0.125 mg Trihexyphenidyl HCl (Artane) 2 mg PO TID [facility] Last Admin: 06/08/17 13:50 Dose: 2 mg - Labs Labs: 06/08/17 11:44 06/08/17 11:44 PT 13.7 SECONDS (9.7-12.2) H 06/07/17 09:48 INR 1.2 06/07/17 09:48 APTT 30 SECONDS (21-34) 06/07/17 09:48 Attending/Attestation - Attestation I have personally seen and examined this patient.: Yes I have fully participated in the care of the patient.: Yes I have reviewed all pertinent clinical information, including history, physical exam and plan: Yes Notes (Text): This is a 52 years old male with history of parkinsons disease was brought in for evaluation of multiple fall.Patient was complaining of unteady gait and falls.He was seen by neurologist,He had extensive work up for his fall last month.Had carotid doppler,echo,EEG and CT head done. He was seen and examined with resident.Plan discussed with patient and bilingual patient support caseworker. 1. Fall and parkinsons disease. Continue his current meds.levodopa/carbidopa,Cogentin,Mirapex and Artane Patient will get benefit by [facility] .D/C to Rehab.Follow up neurologist as an out pt.Discussed about medication compliance 2.ON Lovenox for DVT prophylaxis and protonix for GI prophylaxis
[2017-06-09 07:35] LABS: CHLORIDE 98 mmol/L (98-107); POTASSIUM 3.9 mmol/L (3.6-5.2); SODIUM 137 mmol/L (132-148)
[2017-06-09 07:37] LABS: ALKALINE PHOSPHATASE 53 U/L (38-126); AST/SGOT 31 U/L (17-59); BILIRUBIN,TOTAL 1.2 mg/dL (0.2-1.3); BLOOD UREA NITROGEN 17 mg/dL (9-20); CARBON DIOXIDE 26 mmol/L (22-30); GFR AFRICAN-AMERICAN > 60; GLUCOSE,RANDOM 91 mg/dL (75-110); TOTAL PROTEIN 7.7 g/dL (6.3-8.3)
[2017-06-09 07:38] LABS: ALT/SGPT 24 U/L (21-72); CALCIUM 9.1 mg/dl (8.6-10.4); MAGNESIUM 1.8 mg/dL (1.6-2.3); PHOSPHOROUS 4.3 mg/dL (2.5-4.5)
[2017-06-09 07:39] LABS: BASO % 0.5 % (0.0-2.0); EOS # 0.5 K/uL (0.0-0.7); EOS % 7.2 % (0.0-4.0); HEMATOCRIT 45.9 % (35.0-51.0); LYMPH # 1.4 K/uL (1.0-4.3); LYMPH % 19.3 % (20.0-40.0); MEAN CELL VOLUME 91.6 fL (80.0-94.0); MEAN CORPUSCULAR HGB CONC 34.9 g/dL (33.0-37.0); MONO # 0.5 K/uL (0.0-0.8); MONO % 6.5 % (0.0-10.0); NRBC % 0.1 % (0.0-2.0); RED CELL DISTRIBUTION WIDTH 13.7 % (11.5-14.5); WHITE BLOOD COUNT 7.4 K/uL (4.8-10.8)
[2017-06-09] MEDS: Multiple Vitamins Tab PO SCH (10:40)
[2017-06-09] MEDS: Pantoprazole 40 mg EC Tab PO SCH (10:41)
[2017-06-09] MEDS: Enoxaparin 40 mg Syringe SC SCH (10:44)
--- NOTE | 2017-06-09 12:41 | CP.PCM.PN ---
<Keke Upton - Last Filed: 06/09/17 12:39> Subjective - Date & Time of Evaluation Date of Evaluation: 06/09/17 Time of Evaluation: 09:00 - Subjective Subjective: Medicine Note for Dr. Gonzalez Patient was seen and examined at bedside. No acute complaints. Denied fever, chills, headache, chest pain, abdominal pain, n/v/d/c, or urinary symptoms. Objective - Vital Signs/Intake and Output Vital Signs (last 24 hours): Temp Pulse Resp BP Pulse Ox 97.9 F 62 20 109/71 94 L 06/09/17 08:21 06/09/17 08:21 06/09/17 08:21 06/09/17 08:21 06/09/17 08:21 Intake and Output: 06/09/17 06/09/17 06:59 18:59 Intake Total 300 Output Total 500 Balance -200 - Medications Medications: Current Medications Benztropine Mesylate (Cogentin) 2 mg PO DAILY [facility] Last Admin: 06/09/17 10:40 Dose: 2 mg Carbidopa/Levodopa (Sinemet) 1 tab PO Q6H [facility] Last Admin: 06/09/17 06:20 Dose: 1 tab Enoxaparin Sodium (Lovenox) 40 mg SC DAILY [facility] Last Admin: 06/09/17 10:44 Dose: 40 mg Ketorolac Tromethamine (Toradol) 15 mg IVP Q6H [facility] Last Admin: 06/09/17 06:21 Dose: Not Given Multivitamins (Hexavitamin) 1 tab PO DAILY [facility] Last Admin: 06/09/17 10:40 Dose: 1 tab Pantoprazole Sodium (Protonix Ec Tab) 40 mg PO DAILY [facility] Last Admin: 06/09/17 10:41 Dose: 40 mg Pramipexole Dihydrochloride (Mirapex) 0.125 mg PO TID [facility] Last Admin: 06/09/17 10:41 Dose: 0.125 mg Trihexyphenidyl HCl (Artane) 2 mg PO TID [facility] Last Admin: 06/09/17 10:40 Dose: 2 mg - Labs Labs: 06/09/17 07:10 06/09/17 07:10 PT 13.7 SECONDS (9.7-12.2) H 06/07/17 09:48 INR 1.2 06/07/17 09:48 APTT 30 SECONDS (21-34) 06/07/17 09:48 - Additional Findings Additional findings: - Head Exam Head Exam: NORMAL INSPECTION - Eye Exam Eye Exam: EOMI, Normal appearance - ENT Exam ENT Exam: Mucous Membranes Moist - Neck Exam Neck exam: Positive for: Full Rom. Negative for: Tenderness - Respiratory Exam Respiratory Exam: Clear to Auscultation Bilateral, NORMAL BREATHING PATTERN. absent: Accessory Muscle Use, Respiratory Distress - Cardiovascular Exam Cardiovascular Exam: REGULAR RHYTHM, +S1, +S2. absent: Bradycardia, Tachycardia - GI/Abdominal Exam GI & Abdominal Exam: Distended, Soft, Tenderness (suprapubic tenderness ). absent: Firm, Guarding, Rigid - Extremities Exam Extremities exam: Positive for: normal inspection. Negative for: full ROM Additional comments: resting tremor full strength in bilateral upper extremities cogwheel rigidity appreciated pill rolling - Neurological Exam Neurological exam: Alert - Psychiatric Exam Psychiatric exam: Flat Affect - Skin Skin Exam: Dry, Intact, Normal Color, Warm Assessment and Plan - Assessment and Plan (Free Text) Plan: Parkinson Disease, repeated falling * Neurology consulted - Dr. Luis E Krueger- patient's personal neurologist - help appreciated * Head CT: No acute findings; No hemorrhage * EEG - on last admission - normal EEG * Benztropine 2mg PO daily * Sinemet 1 tab PO q6 * Mirapex 0.25mg PO TID * Artane 2mg PO TID Prophylactic Measures * GI PPX: Protonix 40mg PO daily * DVT PPX: SCDs, Lovenox 40mg SC daily * PT/OT * Dysphagia diet * Case Management consulted for extermination inspector care placement Disposition: Awaiting for Insurance approval to [facility] JASON Arana DO, PGY-1 <Amanda Live - Last Filed: 06/09/17 14:16> Objective - Vital Signs/Intake and Output Vital Signs (last 24 hours): Temp Pulse Resp BP Pulse Ox 97.9 F 62 20 109/71 94 L 06/09/17 08:21 06/09/17 08:21 06/09/17 08:21 06/09/17 08:21 06/09/17 08:21 Intake and Output: 06/09/17 06/09/17 06:59 18:59 Intake Total 300 Output Total 500 Balance -200 - Medications Medications: Current Medications Benztropine Mesylate (Cogentin) 2 mg PO DAILY [facility] Last Admin: 06/09/17 10:40 Dose: 2 mg Carbidopa/Levodopa (Sinemet) 1 tab PO Q6H [facility] Last Admin: 06/09/17 13:33 Dose: 1 tab Enoxaparin Sodium (Lovenox) 40 mg SC DAILY [facility] Last Admin: 06/09/17 10:44 Dose: 40 mg Ketorolac Tromethamine (Toradol) 15 mg IVP Q6H [facility] Last Admin: 06/09/17 13:30 Dose: 15 mg Multivitamins (Hexavitamin) 1 tab PO DAILY [facility] Last Admin: 06/09/17 10:40 Dose: 1 tab Pantoprazole Sodium (Protonix Ec Tab) 40 mg PO DAILY [facility] Last Admin: 06/09/17 10:41 Dose: 40 mg Pramipexole Dihydrochloride (Mirapex) 0.125 mg PO TID [facility] Last Admin: 06/09/17 13:32 Dose: 0.125 mg Trihexyphenidyl HCl (Artane) 2 mg PO TID [facility] Last Admin: 06/09/17 13:32 Dose: 2 mg - Labs Labs: 06/09/17 07:10 06/09/17 07:10 PT 13.7 SECONDS (9.7-12.2) H 06/07/17 09:48 INR 1.2 06/07/17 09:48 APTT 30 SECONDS (21-34) 06/07/17 09:48 Attending/Attestation - Attestation I have personally seen and examined this patient.: Yes I have fully participated in the care of the patient.: Yes I have reviewed all pertinent clinical information, including history, physical exam and plan: Yes Notes (Text): Patient was seen and examined with resident this morning.He has no pain.c/p tremor and unable to ambulate himself.He wants to get rehab. Plan Continue his parkinsons medication levodopa/carbidopa,Cogentin,Mirapex and Artane.follow neurologist Patient will get benefit by [facility] CarreraD/C to Rehab. CW is working on his rehab placement we will continue Lovenox for DVT prophylaxis and protonix for GI prophylaxis
[2017-06-10 08:38] LABS: BASO % 0.5 % (0.0-2.0); EOS # 0.4 K/uL (0.0-0.7); EOS % 5.9 % (0.0-4.0); HEMATOCRIT 45.8 % (35.0-51.0); LYMPH # 1.8 K/uL (1.0-4.3); LYMPH % 25.7 % (20.0-40.0); MEAN CELL VOLUME 91.7 fL (80.0-94.0); MEAN CORPUSCULAR HEMOGLOBIN 31.7 pg (27.0-31.0); MEAN CORPUSCULAR HGB CONC 34.6 g/dL (33.0-37.0); MEAN PLATELET VOLUME 9.2 fL (7.2-11.7); MONO # 0.5 K/uL (0.0-0.8); MONO % 7.1 % (0.0-10.0); NRBC % 0.1 % (0.0-2.0); RED CELL DISTRIBUTION WIDTH 13.8 % (11.5-14.5)
[2017-06-10 08:56] LABS: CHLORIDE 98 mmol/L (98-107); SODIUM 136 mmol/L (132-148)
[2017-06-10 08:57] LABS: POTASSIUM 4.5 mmol/L (3.6-5.2)
[2017-06-10 08:58] LABS: GFR AFRICAN-AMERICAN > 60
[2017-06-10 08:59] LABS: ALB/GLOB RATIO 1.1 (1.0-2.1); ALKALINE PHOSPHATASE 55 U/L (38-126); ALT/SGPT 15 U/L (21-72); AST/SGOT 37 U/L (17-59); BILIRUBIN,TOTAL 1.2 mg/dL (0.2-1.3); BLOOD UREA NITROGEN 18 mg/dL (9-20); CARBON DIOXIDE 28 mmol/L (22-30); GLUCOSE,RANDOM 90 mg/dL (75-110); PHOSPHOROUS 3.7 mg/dL (2.5-4.5); TOTAL PROTEIN 7.7 g/dL (6.3-8.3)
[2017-06-10 09:00] LABS: CALCIUM 8.8 mg/dl (8.6-10.4); MAGNESIUM 1.7 mg/dL (1.6-2.3)
[2017-06-10] MEDS: Enoxaparin 40 mg Syringe SC SCH (09:06)
[2017-06-10] MEDS: Multiple Vitamins Tab PO SCH (09:08)
[2017-06-10] MEDS: Pantoprazole 40 mg EC Tab PO SCH (09:08)
--- NOTE | 2017-06-10 11:48 | CP.PCM.PN ---
<Keke Upton - Last Filed: 06/10/17 11:45> Subjective - Date & Time of Evaluation Date of Evaluation: 06/10/17 Time of Evaluation: 09:00 - Subjective Subjective: Medicine Note for Dr. Gonzalez Patient was seen and examined at bedside. No acute complaints. Denied fever, chills, headache, chest pain, abdominal pain, n/v/d/c, or urinary symptoms. Objective - Vital Signs/Intake and Output Vital Signs (last 24 hours): Temp Pulse Resp BP Pulse Ox 97.7 F 66 20 143/83 96 06/10/17 08:28 06/10/17 08:28 06/10/17 08:28 06/10/17 08:28 06/10/17 08:28 Intake and Output: 06/10/17 06/10/17 06:59 18:59 Output Total 800 Balance -800 - Medications Medications: Current Medications Benztropine Mesylate (Cogentin) 2 mg PO DAILY [facility] Last Admin: 06/10/17 09:05 Dose: 2 mg Carbidopa/Levodopa (Sinemet) 1 tab PO Q6H [facility] Last Admin: 06/10/17 06:32 Dose: 1 tab Enoxaparin Sodium (Lovenox) 40 mg SC DAILY [facility] Last Admin: 06/10/17 09:06 Dose: 40 mg Ketorolac Tromethamine (Toradol) 15 mg IVP Q6H [facility] Last Admin: 06/10/17 06:32 Dose: Not Given Multivitamins (Hexavitamin) 1 tab PO DAILY [facility] Last Admin: 06/10/17 09:08 Dose: 1 tab Pantoprazole Sodium (Protonix Ec Tab) 40 mg PO DAILY [facility] Last Admin: 06/10/17 09:08 Dose: 40 mg Pramipexole Dihydrochloride (Mirapex) 0.125 mg PO TID [facility] Last Admin: 06/10/17 09:05 Dose: 0.125 mg Trihexyphenidyl HCl (Artane) 2 mg PO TID [facility] Last Admin: 06/10/17 09:05 Dose: 2 mg - Labs Labs: 06/10/17 08:21 06/10/17 08:21 PT 13.7 SECONDS (9.7-12.2) H 06/07/17 09:48 INR 1.2 06/07/17 09:48 APTT 30 SECONDS (21-34) 06/07/17 09:48 - Additional Findings Additional findings: - Head Exam Head Exam: NORMAL INSPECTION - Eye Exam Eye Exam: EOMI, Normal appearance - ENT Exam ENT Exam: Mucous Membranes Moist - Neck Exam Neck exam: Positive for: Full Rom. Negative for: Tenderness - Respiratory Exam Respiratory Exam: Clear to Auscultation Bilateral, NORMAL BREATHING PATTERN. absent: Accessory Muscle Use, Respiratory Distress - Cardiovascular Exam Cardiovascular Exam: REGULAR RHYTHM, +S1, +S2. absent: Bradycardia, Tachycardia - GI/Abdominal Exam GI & Abdominal Exam: Distended, Soft, Tenderness (suprapubic tenderness ). absent: Firm, Guarding, Rigid - Extremities Exam Extremities exam: Positive for: normal inspection. Negative for: full ROM Additional comments: resting tremor full strength in bilateral upper extremities cogwheel rigidity appreciated pill rolling - Neurological Exam Neurological exam: Alert - Psychiatric Exam Psychiatric exam: Flat Affect - Skin Skin Exam: Dry, Intact, Normal Color, Warm Assessment and Plan - Assessment and Plan (Free Text) Plan: Parkinson Disease, repeated falling * Neurology consulted - Dr. 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 Case management is pending approval to [facility]. JASON Gutierrez Dr., DO, PGY-1 <Amanda Live - Last Filed: 06/10/17 13:30> Objective - Vital Signs/Intake and Output Vital Signs (last 24 hours): Temp Pulse Resp BP Pulse Ox 97.7 F 66 20 143/83 96 06/10/17 08:28 06/10/17 08:28 06/10/17 08:28 06/10/17 08:28 06/10/17 08:28 Intake and Output: 06/10/17 06/10/17 06:59 18:59 Output Total 800 Balance -800 - Medications Medications: Current Medications Benztropine Mesylate (Cogentin) 2 mg PO DAILY [facility] Last Admin: 06/10/17 09:05 Dose: 2 mg Carbidopa/Levodopa (Sinemet) 1 tab PO Q6H [facility] Last Admin: 06/10/17 13:10 Dose: 1 tab Enoxaparin Sodium (Lovenox) 40 mg SC DAILY [facility] Last Admin: 06/10/17 09:06 Dose: 40 mg Ketorolac Tromethamine (Toradol) 15 mg IVP Q6H [facility] Last Admin: 06/10/17 13:21 Dose: Not Given Multivitamins (Hexavitamin) 1 tab PO DAILY [facility] Last Admin: 06/10/17 09:08 Dose: 1 tab Pantoprazole Sodium (Protonix Ec Tab) 40 mg PO DAILY [facility] Last Admin: 06/10/17 09:08 Dose: 40 mg Pramipexole Dihydrochloride (Mirapex) 0.125 mg PO TID [facility] Last Admin: 06/10/17 13:15 Dose: 0.125 mg Trihexyphenidyl HCl (Artane) 2 mg PO TID [facility] Last Admin: 06/10/17 13:17 Dose: 2 mg - Labs Labs: 06/10/17 08:21 06/10/17 08:21 PT 13.7 SECONDS (9.7-12.2) H 06/07/17 09:48 INR 1.2 06/07/17 09:48 APTT 30 SECONDS (21-34) 06/07/17 09:48 Attending/Attestation - Attestation I have personally seen and examined this patient.: Yes I have fully participated in the care of the patient.: Yes I have reviewed all pertinent clinical information, including history, physical exam and plan: Yes Notes (Text): 06/10/17 13:24 Patient was seen this morining.He is sitting on the chair.Less tremor,feeling better. his is a 52 years old male with history of parkinsons disease was brought in for evaluation of multiple fall.Patient was complaining of unteady gait and falls.He was seen by neurologist,He had extensive work up for his fall last month.Had carotid doppler,echo,EEG and CT head done. 1. Fall and parkinsons disease. Continue his current meds.levodopa/carbidopa,Cogentin,Mirapex and Artane.Improving Patient will get benefit by [facility] .D/C to Rehab .CW is working to [facility] 2.ON Lovenox for DVT prophylaxis and protonix for GI prophylax
--- NOTE | 2017-06-10 15:16 | CP.PCM.DIS ---
Provider - Provider Date of Admission: 06/08/17 09:39 Attending physician: Jerrod Simpson MD Consults: Neurology: Dr. Luis E Krueger. Time Spent in preparation of Discharge (in minutes): 55 Hospital Course - Lab Results Lab Results: Most Recent Lab Values WBC 7.0 K/uL (4.8-10.8) 06/10/17 08:21 RBC 5.00 Mil/uL (4.40-5.90) 06/10/17 08:21 Hgb 15.9 g/dL (12.0-18.0) 06/10/17 08:21 Hct 45.8 % (35.0-51.0) 06/10/17 08:21 MCV 91.7 fL (80.0-94.0) 06/10/17 08:21 MCH 31.7 pg (27.0-31.0) H 06/10/17 08:21 MCHC 34.6 g/dL (33.0-37.0) 06/10/17 08:21 RDW 13.8 % (11.5-14.5) 06/10/17 08:21 Plt Count 148 K/uL (130-400) 06/10/17 08:21 MPV 9.2 fL (7.2-11.7) 06/10/17 08:21 Neut % (Auto) 60.8 % (50.0-75.0) 06/10/17 08:21 Lymph % (Auto) 25.7 % (20.0-40.0) 06/10/17 08:21 Taylor % (Auto) 7.1 % (0.0-10.0) 06/10/17 08:21 Eos % (Auto) 5.9 % (0.0-4.0) H 06/10/17 08:21 Baso % (Auto) 0.5 % (0.0-2.0) 06/10/17 08:21 Neut # 4.3 K/uL (1.8-7.0) 06/10/17 08:21 Lymph # 1.8 K/uL (1.0-4.3) 06/10/17 08:21 Taylor # 0.5 K/uL (0.0-0.8) 06/10/17 08:21 Eos # 0.4 K/uL (0.0-0.7) 06/10/17 08:21 Baso # 0.0 K/uL (0.0-0.2) 06/10/17 08:21 PT 13.7 SECONDS (9.7-12.2) H 06/07/17 09:48 INR 1.2 06/07/17 09:48 APTT 30 SECONDS (21-34) 06/07/17 09:48 Sodium 136 mmol/L (132-148) 06/10/17 08:21 Potassium 4.5 mmol/L (3.6-5.2) 06/10/17 08:21 Chloride 98 mmol/L (98-107) 06/10/17 08:21 Carbon Dioxide 28 mmol/L (22-30) 06/10/17 08:21 Anion Gap 15 (10-20) 06/10/17 08:21 BUN 18 mg/dL (9-20) 06/10/17 08:21 Creatinine 0.6 mg/dL (0.8-1.5) L 06/10/17 08:21 Est GFR ( Amer) > 60 06/10/17 08:21 Est GFR (Non-Af Amer) > 60 06/10/17 08:21 POC Glucose (mg/dL) 104 mg/dL (65-110) 06/07/17 08:59 Random Glucose 90 mg/dL (75-110) 06/10/17 08:21 Calcium 8.8 mg/dl (8.6-10.4) 06/10/17 08:21 Phosphorus 3.7 mg/dL (2.5-4.5) 06/10/17 08:21 Magnesium 1.7 mg/dL (1.6-2.3) 06/10/17 08:21 Total Bilirubin 1.2 mg/dL (0.2-1.3) 06/10/17 08:21 AST 37 U/L (17-59) 06/10/17 08:21 ALT 15 U/L (21-72) L D 06/10/17 08:21 Alkaline Phosphatase 55 U/L (38-126) 06/10/17 08:21 Total Creatine Kinase 196 U/L (55-170) H 06/07/17 09:48 CK-MB (Mass) 3.60 ng/mL (0.0-3.38) H 06/07/17 09:48 Total Protein 7.7 g/dL (6.3-8.3) 06/10/17 08:21 Albumin 4.1 g/dL (3.5-5.0) 06/10/17 08:21 Globulin 3.6 gm/dL (2.2-3.9) 06/10/17 08:21 Albumin/Globulin Ratio 1.1 (1.0-2.1) 06/10/17 08:21 Urine Color Yellow (YELLOW) 06/07/17 09:57 Urine Clarity Clear (Clear) 06/07/17 09:57 Urine pH 6.0 (5.0-8.0) 06/07/17 09:57 Ur Specific [place] 1.024 (1.003-1.030) 06/07/17 09:57 Urine Protein Negative mg/dL (NEGATIVE) 06/07/17 09:57 Urine Glucose (UA) Normal mg/dL (Normal) 06/07/17 09:57 Urine Ketones 1+ mg/dL (NEGATIVE) H 06/07/17 09:57 Urine Blood Negative (NEGATIVE) 06/07/17 09:57 Urine Nitrate Negative (NEGATIVE) 06/07/17 09:57 Urine Bilirubin Negative (NEGATIVE) 06/07/17 09:57 Urine Urobilinogen Normal mg/dL (0.2-1.0) 06/07/17 09:57 Ur Leukocyte Esterase Neg Leena/uL (Negative) 06/07/17 09:57 Urine WBC (Auto) 1 /hpf (0-5) 06/07/17 09:57 Urine RBC (Auto) 1 /hpf (0-3) 06/07/17 09:57 - Hospital Course Hospital Course: Upon Admission: 52 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 He stated he fell as he got out of his bed. He walked to the kitchen to take medication and saw bright lights and was dizzy. Subsequently, patient fell twice. Patient states that when he hit his head he vomited. Patient also said he fell one time in the morning and did not want to fall again so he sat in a chair. Brother in law called ambulance to bring patient in hospital by his chair. Patient has a wheelchair at home. Patient denies Fever, Chills, chest pain. Patient admits to shortness of breath , abdominal pain, and leg pain. Patient states he feels that his Parkinson's medications are not working. PMH: Parkinson's PSH: Right knee ligament surgery Social history no Allergies no family history of HTN, CAD, Parkinson's Throughout the Hospital Course: Patient was admitted for repeated falls. Patient accepted to [facility]. Parkinson Disease, repeated falling * Neurology consulted - Dr. Luis E Krueger- patient's personal neurologist - help appreciated * Head CT: No acute findings; No hemorrhage * EEG - on last admission - normal EEG * Benztropine 2mg PO daily * Sinemet 1 tab PO q6 * Mirapex 0.25mg PO TID * Artane 2mg PO TID Prophylactic Measures * GI PPX: Protonix 40mg PO daily * DVT PPX: SCDs, Lovenox 40mg SC daily * PT/OT - [facility] * Dysphagia diet * Case Management consulted for [facility]/ [facility]AC placement. Please review EMR for full record, this is a brief summary of the patient's hospital course. Discharge Exam - Head Exam Head Exam: NORMAL INSPECTION - Additional Findings Additional findings: - Head Exam Head Exam: NORMAL INSPECTION - Eye Exam Eye Exam: EOMI, Normal appearance - ENT Exam ENT Exam: Mucous Membranes Moist - Neck Exam Neck exam: Positive for: Full Rom. Negative for: Tenderness - Respiratory Exam Respiratory Exam: Clear to Auscultation Bilateral, NORMAL BREATHING PATTERN. absent: Accessory Muscle Use, Respiratory Distress - Cardiovascular Exam Cardiovascular Exam: REGULAR RHYTHM, +S1, +S2. absent: Bradycardia, Tachycardia - GI/Abdominal Exam GI & Abdominal Exam: Distended, Soft, Tenderness (suprapubic tenderness ). absent: Firm, Guarding, Rigid - Extremities Exam Extremities exam: Positive for: normal inspection. Negative for: full ROM Additional comments: resting tremor full strength in bilateral upper extremities cogwheel rigidity appreciated pill rolling - Neurological Exam Neurological exam: Alert - Psychiatric Exam Psychiatric exam: Flat Affect - Skin Skin Exam: Dry, Intact, Normal Color, Warm Discharge Plan - Follow Up Plan Condition: GOOD Disposition: REHAB FACILITY/REHAB UNIT Additional Instructions: Patient is safe for discharge to [facility]. Please continue medications as listed. Please have patient follow up with Dr. Luis E Krueger his neurologist within 1-2 weeks. Referrals: Dony Krueger MD [Staff Provider] -
[2017-06-10 15:39] VITALS: BP 151/88; PULSE 65; RESP 18; TEMP 97.4; O2SAT 97
== END 2017-06-10 19:55 | DRG 57 ==
LOC: C.ER 08:51 → C.9E 13:52 → C.6T 15:02 → OBSVTOIN 06-08 09:39
PROVIDERS: ADMIT Internal Medicine; ATTEND Family Medicine
DX: G20 Parkinson's disease (principal); R29.6 Repeated falls

== ENCOUNTER 2018-03-27 09:22 | Inpatient (IN) | payer MEDICARE ==
[2018-03-27] MEDS ORDERED: Sodium Chloride 0.9% 1,000 ML IV ONE (09:27)
--- NOTE | 2018-03-27 09:29 | C.PDOC ---
History Of Present Illness Pt is a 52 yr old male who presents to the ED with back pain s/p 2 falls ( yesterday & today) and increased shakiness (from Parkinsons Disease). Pt has Parkinsons Disease and states that he fell once yesterday in his apartment and fell a second time while visiting a friend in a hardware store. EMS was called and pt brought to ED. Pt is on CarbiDopa (4 times a day) for his Parkinsons but states that it is not working. When pt fell, he did hit his head on the fridge but No LOC. Pt states that his head feels like an accordian. Pt states he does feel a little dizzy and is nauseous. Pt states he has a similar episode of uncontrolled shaking many months ago and he had to be admitted here at [facility] and later transferred to another facility (?rehab) for 2 weeks. In regards to the fall, he has some right upper arm pain and some left lower back pain. PMD: Dr. Indra King Neurologist: Dr. Dony Krueger (but has not seen him in a long time) Time Seen by Provider: 03/27/18 09:23 Chief Complaint (Nursing): Back Pain History Per: Patient, EMS History/Exam Limitations: no limitations Onset/Duration Of Symptoms: Days Current Symptoms Are (Timing): Still Present Past Medical History Reviewed: Historical Data, Nursing Documentation, Vital Signs Vital Signs: Last Vital Signs Temp 99.2 F 03/27/18 09:27 Pulse 83 03/27/18 10:56 Resp 20 03/27/18 10:56 BP 119/77 03/27/18 10:56 Pulse Ox 96 03/27/18 10:56 - Medical History PMH: Parkinson's Disease Other PMH: Rhabdomyolysis Family History: States: No Known Family Hx - Social History Hx Tobacco Use: No Hx Alcohol Use: No Hx Substance Use: No - Immunization History Hx Tetanus Toxoid Vaccination: No Hx Influenza Vaccination: Yes Hx Pneumococcal Vaccination: Yes Review Of Systems Except As Marked, All Systems Reviewed And Found Negative. Constitutional: Negative for: Fever Cardiovascular: Negative for: Chest Pain Respiratory: Negative for: Shortness of Breath Gastrointestinal: Negative for: Vomiting Neurological: Positive for: Dizziness, Other Physical Exam - Physical Exam Appears: No Acute Distress, Other ((+) shaking of upper extremeties) Skin: Warm, Dry, Other (superficial laceration to right upper arm) Head: Atraumatic, Normacephalic Eye(s): bilateral: Normal Inspection, EOMI Ear(s): Bilateral: Normal Nose: Normal Oral Mucosa: Moist Tongue: Normal Appearing Lips: Normal Appearing Throat: Normal Neck: Normal, Normal ROM, No Midline Cervical Tenderness Lymphatic: Deferred Chest: Symmetrical Cardiovascular: Rhythm Regular Respiratory: Normal Breath Sounds, No Rales, No Rhonchi, No Wheezing Gastrointestinal/Abdominal: Normal Exam, Soft, No Tenderness Rectal: Deferred Back: No Vertebral Tenderness, Other (2 scratches/bruises noted to back) Extremity: Other (Upper extremeties both shaking) Extremity: Bilateral: Atraumatic Pulses: Left Radial: Normal, Right Radial: Normal Neurological/Psych: Oriented x3, Normal Sensation, Other (tremors to UE bilat) ED Course And Treatment - Laboratory Results Result Diagrams: 03/27/18 10:08 03/27/18 10:53 ECG: Interpreted By Me ECG Rhythm: Sinus Rhythm Interpretation Of EC bpm, left atrial enlargement, no ST-T wave elevation Medical Decision Making Medical Decision Making: Initial Impression: 2 recent falls secondary to worsening Parkinsons Initial Plan: Will give 1 dose of Klonopin PO to help with tremors, will check labs, get CT of head due to recent head trauma Progress Note(s): 9:50 AM - I spoke to Dr. Dony Krueger (his neurologist). He states that the pt has not seem him in quite some time. He states that since patient is already on CarbiDopa QID that one measure that could be taken would be to add Mirapex 0.125mg TID and to increase the dose every 2 weeks (but he states that it does take some time to take effect). 10:58 AM - CT of the head is unremarkable. CMP bloodwork was hemolyzed. Nursing has drawn and sent a repeat specimen; will follow up labs once resulted. Patient's shaking is much improved after receiving PO Klonopin. 11:21 AM - Case d/w Dr. Indra King (PMD) and he recommends admission to the Hospitalist Service because of these frequent falls. / Disposition Counseled Patient/Family Regarding: Studies Performed, Diagnosis - Disposition Disposition: HOSPITALIZED Disposition Time: 10:52 Condition: FAIR Forms: Mobile Ads (Turkish) - Clinical Impression Clinical Impression: Symptomatic Parkinson disease, Difficulty walking, Fall at home Physician Patient Turnover Patient Signed Over To: Jerrod Simpson Decision To Admit - Pt Status Changed To: Hospital Disposition Of: Inpatient - Admit Certification Admit to Inpatient:: After my assessment, the patient will require hospitalization for at least two midnights. This is because of the severity of symptoms shown, intensity of services needed, and/or the medical risk in this patient being treated as an outpatient. - InPatient: Physician Admission Certification:: Patient with frequent falls that will require evaluation by neurologist. Not a safe discharge at this time due to the frequency of falls (including hitting head). - . Bed Request Type: Regular Admitting Physician: Jerrod Simpson Patient Diagnosis: Symptomatic Parkinson disease, Difficulty walking, Fall at home
[2018-03-27] MEDS ORDERED: Tdap Vaccine 0.5 ml Vial (10-64 yrs) IM ONE ×3 (09:55→10:05)
[2018-03-27] MEDS ORDERED: Sodium Chloride 0.9% 1,000 ML ONE (09:56)
[2018-03-27 10:13] LABS: BASO # 0.1 K/uL (0.0-0.2); BASO % 0.8 % (0.0-2.0); EOS # 0.2 K/uL (0.0-0.7); EOS % 2.2 % (0.0-4.0); HEMOGLOBIN 15.9 g/dL (12.0-18.0); LYMPH # 1.4 K/uL (1.0-4.3); LYMPH % 16.9 % (20.0-40.0); MEAN CELL VOLUME 92.6 fL (80.0-94.0); MEAN CORPUSCULAR HEMOGLOBIN 31.8 pg (27.0-31.0); MEAN CORPUSCULAR HGB CONC 34.3 g/dL (33.0-37.0); MEAN PLATELET VOLUME 9.6 fL (7.2-11.7); MONO # 0.5 K/uL (0.0-0.8); MONO % 5.8 % (0.0-10.0); NEUT # 6.4 K/uL (1.8-7.0); NEUT % 74.3 % (50.0-75.0); RBC 5.01 Mil/uL (4.40-5.90); RED CELL DISTRIBUTION WIDTH 13.7 % (11.5-14.5); WHITE BLOOD COUNT 8.6 K/uL (4.8-10.8)
[2018-03-27 10:14] LABS: SQUAMOUS EPITHIAL < 1 /hpf (0-5); URINE BACTERIA RARE (<OCC); URINE BILIRUBIN NEGATIVE (NEGATIVE); URINE BLOOD NEGATIVE (NEGATIVE); URINE CLARITY Clear (Clear); URINE COLOR Yellow (YELLOW); URINE GLUCOSE (UA) NORMAL (Normal); URINE LEUKOCYTE ESTERASE NEG Leu/uL (Negative); URINE PROTEIN 1+ mg/dL (NEGATIVE)
--- NOTE | 2018-03-27 10:56 | CT ---
Date of service: 03/27/2018 PROCEDURE: CT HEAD WITHOUT CONTRAST. HISTORY: Parkinson's pt; fell hit head yesterday; headache COMPARISON: Comparison is made with 06/07/2017 TECHNIQUE: Axial computed tomography images were obtained through the head/brain without intravenous contrast. 3D reconstructed images of the skull were also obtained. Radiation dose: Total exam DLP = 1025.51 mGy-cm. This CT exam was performed using one or more of the following dose reduction techniques: Automated exposure control, adjustment of the mA and/or kV according to patient size, and/or use of iterative reconstruction technique. FINDINGS: HEMORRHAGE: No intracranial hemorrhage. BRAIN: No mass effect or edema. No atrophy or chronic microvascular ischemic changes. VENTRICLES: Unremarkable. No hydrocephalus. CALVARIUM: Unremarkable. PARANASAL SINUSES: Unremarkable as visualized. No significant inflammatory changes. MASTOID AIR CELLS: Unremarkable as visualized. No inflammatory changes. OTHER FINDINGS: None. IMPRESSION: No evidence of acute intracranial hemorrhage intracranial collection mass effect or midline shift.
--- NOTE | 2018-03-27 11:07 | CT ---
Date of service: 03/27/2018 PROCEDURE: CT Cervical Spine without contrast HISTORY: Parkinson's pt; fell hit head yesterday; neck pain COMPARISON: None available. TECHNIQUE: Axial computed tomography images were obtained of the cervical spine without the use of intravenous contrast. Coronal and sagittal reformatted images were created and reviewed. Radiation dose: Total exam DLP = 593.71 mGy-cm. This CT exam was performed using one or more of the following dose reduction techniques: Automated exposure control, adjustment of the mA and/or kV according to patient size, and/or use of iterative reconstruction technique. FINDINGS: VERTEBRAE: No fracture. Normal alignment. No destructive bony lesion. DISCS/SPINAL CANAL/NEURAL FORAMINA: No significant central canal or neural foraminal stenosis. Mild degenerative changes are noted. Discs heights are grossly preserved. PARASPINAL SOFT TISSUES: Unremarkable. OTHER FINDINGS: None. IMPRESSION: No evidence of acute fracture or subluxation. Mild degenerative changes.
[2018-03-27 11:14] LABS: ALB/GLOB RATIO 1.3 (1.0-2.1); ALBUMIN 4.2 g/dL (3.5-5.0); ALT/SGPT 14 U/L (21-72); AST/SGOT 25 U/L (17-59); BLOOD UREA NITROGEN 18 mg/dL (9-20); CALCIUM 8.9 mg/dl (8.6-10.4); GFR AFRICAN-AMERICAN > 60; GFR NON-AFRICAN AMERICAN > 60
[2018-03-27] MEDS: Carbidopa/Levodopa 25/100 CR PO SCH ×2 (12:07→19:13)
--- NOTE | 2018-03-27 14:48 | CP.PCM.HP ---
<Umberto Russ - Last Filed: 03/27/18 22:06> History of Present Illness - History of Present Illness History of Present Illness: Patient is 52 year old male with past medical history of Parkinson's disease, who comes in to ED after falling backwards and hitting his right shoulder and arm in a hardware store. Patient says he lost balance and tried to hold himself with left hand but was not able to prevent fall. Patient denies loss of consciousness. Patient says he did not hit his head or any other part of his body. Patient had a previous fall the day before at home while reaching for the fridge. Patient fell backwards and hit his head in that occasion. Patient's sister Anabel Palacios, says patient had 6 episodes of falls in his home in the past month. Sister has found patient in the floor multiple times, with extreme episodes of shaking, that preventing him from getting up. Sister also stated that his gait and shaking has worsens, as now he walks in a twisted manner, with both feet pointed towards midline, and his mouth has shifted towards left side, making it difficult to speak and to swallow. Patient admits to 2 days constipation, mild shortness of breath at times, nausea and nonbloody vomiting x 4 times in the past 2 days, as well as bilateral leg numbness. Patient admits to increased thirst and feeling hot inside of his body. Patient denies chills, headaches, dizziness, chest pain, shortness of breath, diarrhea , abdominal pain, leg swelling or dysuria. PMD: Indra King Allergies: NKDA PMHx: Parkinson's disease PSHX: Knee ligament surgery, as documented in the past Fmhx: none SocHx: denies tobacco use, former drinker, quitted 2010, no illicit drug use. 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 absent: Chills, Fever, Headache - EENT Eyes: Blurred Vision Nose/Mouth/Throat: Dysphagia. absent: Sore Throat - Cardiovascular Cardiovascular: absent: Chest Pain, Dyspnea, Leg Edema, Palpitations, Syncope - Respiratory Respiratory: absent: Cough, Dyspnea - Gastrointestinal Gastrointestinal: Constipation. absent: Abdominal Pain, Diarrhea, Nausea, Vomiting - Genitourinary Genitourinary: absent: Dysuria - Musculoskeletal Musculoskeletal: Abnormal Gait, Numbness, Tingling. absent: Muscle Cramps Additional comments: lower extremity numbness and tingling - Neurological Neurological: Abnormal Gait, Abnormal Speech, Disequilibrium, Lack of Coordination, Memory Loss. absent: Headaches - Psychiatric Psychiatric: Memory Loss Past Patient History - Infectious Disease Hx of Infectious Diseases: None - Past Medical History & Family History Past Medical History?: Yes - Past Social History Smoking Status: Never Smoked - CARDIAC Hx Cardiac Disorders: No - PULMONARY Hx Respiratory Disorders: No - NEUROLOGICAL Hx Parkinson's Disease: Yes - HEENT Hx HEENT Problems: No - RENAL Hx Chronic Kidney Disease: No - ENDOCRINE/METABOLIC Hx Endocrine Disorders: No - HEMATOLOGICAL/ONCOLOGICAL Hx Blood Disorders: No - INTEGUMENTARY Hx Dermatological Problems: No - MUSCULOSKELETAL/RHEUMATOLOGICAL Hx Falls: No - GASTROINTESTINAL Hx Gastrointestinal Disorders: No - GENITOURINARY/GYNECOLOGICAL Hx Genitourinary Disorders: No - PSYCHIATRIC Hx Substance Use: No - SURGICAL HISTORY Hx Surgeries: Yes Other/Comment: Right knee ligament sx - ANESTHESIA Hx Anesthesia: Yes Hx Anesthesia Reactions: No Hx Malignant Hyperthermia: No Meds Allergies/Adverse Reactions: Allergies Allergy/AdvReac Type Severity Reaction Status Date / Time No Known Allergies Allergy Verified 03/27/18 09:26 Physical Exam - Constitutional Appears: Non-toxic, No Acute Distress - Head Exam Head Exam: ATRAUMATIC, NORMAL INSPECTION, NORMOCEPHALIC - Eye Exam Eye Exam: PERRL Additional comments: Inability to move left eye to left lower lateral quadrant Inability to move right eye to left lower medial quadrant - ENT Exam ENT Exam: Mucous Membranes Moist Additional comments: hypertrophic gums - Neck Exam Neck exam: Negative for: Lymphadenopathy, Thyromegaly - Respiratory Exam Respiratory Exam: Clear to Auscultation Bilateral, NORMAL BREATHING PATTERN. absent: Rales, Rhonchi, Wheezes - Cardiovascular Exam Cardiovascular Exam: REGULAR RHYTHM, +S1, +S2 - GI/Abdominal Exam GI & Abdominal Exam: Hyperactive Bowel Sounds, Soft. absent: Distended, Rigid Additional comments: Right upper and lower quadrant hyperactive bowels on auscultation Left upper and lower quadrant hypoactive bowel sounds on auscultation - Extremities Exam Extremities exam: Positive for: normal inspection. Negative for: joint swelling , pedal edema, tenderness Additional comments: 3 cm horizontal laceration in proximal right elbow - Back Exam Back exam: absent: paraspinal tenderness, tenderness, vertebral tenderness Additional comments: right mid thoracic back/scapular region scratch/sight laceration - Neurological Exam Neurological exam: Alert, Oriented x3 - Expanded Neurological Exam Expanded Patient oriented to: person, place, time Speech: Slurred Speech Cranial nerves: EOM's Intact: Abnormal Left, Abnormal Right, Facial Palsey w/ Forehead Movement: Abnormal Left, Abnormal Right, Facial Sensation: Abnormal Left, Abnormal Right (no facial sensation right and left forehead), Nystagmus: Normal Upper motor neuron: Babinski Sign: Normal Sensory exam: Lower Extremity 2 Point Discrimination: Normal, Lower Extremity Light Touch: Normal, Upper Extremity 2 Point Discrimination: Normal, Upper Extremity Light Touch: Normal Neuro motor strength exam: Left Upper Extremity: 4, Right Upper Extremity: 4, Left Lower Extremity: 3, Right Lower Extremity: 3 DTR: Bicep Left: 1+, Patellar Left: 1+, Patellar Right: 1+ - Psychiatric Exam Psychiatric exam: Normal Mood - Skin Skin Exam: Dry, Intact, Normal Color, Warm Results - Vital Signs Recent Vital Signs: Last Vital Signs Temp 98.1 F 03/27/18 13:00 Pulse 84 03/27/18 13:00 Resp 20 03/27/18 13:00 BP 150/88 03/27/18 13:00 Pulse Ox 96 03/27/18 13:00 - Labs Result Diagrams: 03/27/18 10:08 03/27/18 10:53 Labs: Laboratory Results - last 24 hr 03/27/18 03/27/18 03/27/18 09:42 10:08 10:08 WBC 8.6 RBC 5.01 Hgb 15.9 Hct 46.4 MCV 92.6 MCH 31.8 H MCHC 34.3 RDW 13.7 Plt Count 174 MPV 9.6 Neut % (Auto) 74.3 Lymph % (Auto) 16.9 L [place] % (Auto) 5.8 Eos % (Auto) 2.2 Baso % (Auto) 0.8 Neut # (Auto) 6.4 Lymph # (Auto) 1.4 [place] # (Auto) 0.5 Eos # (Auto) 0.2 Baso # (Auto) 0.1 Sodium Potassium Chloride Carbon Dioxide Anion Gap BUN Creatinine Est GFR ( Amer) Est GFR (Non-Af Amer) POC Glucose (mg/dL) 99 Random Glucose Calcium Total Bilirubin AST ALT Alkaline Phosphatase Total Creatine Kinase Troponin I Total Protein Albumin Globulin Albumin/Globulin Ratio Urine Color Yellow Urine Clarity Clear Urine pH 5.0 Ur Specific [place] 1.031 H Urine Protein 1+ H Urine Glucose (UA) Normal Urine Ketones 1+ H Urine Blood Negative Urine Nitrate Negative Urine Bilirubin Negative Urine Urobilinogen 2.0 Ur Leukocyte Esterase Neg Urine WBC (Auto) 1 Urine RBC (Auto) 2 Ur Squamous Epith Cells < 1 Urine Bacteria Rare 03/27/18 10:53 WBC RBC Hgb Hct MCV MCH MCHC RDW Plt Count MPV Neut % (Auto) Lymph % (Auto) [place] % (Auto) Eos % (Auto) Baso % (Auto) Neut # (Auto) Lymph # (Auto) [place] # (Auto) Eos # (Auto) Baso # (Auto) Sodium 147 Potassium 3.7 Chloride 104 Carbon Dioxide 29 Anion Gap 17 BUN 18 Creatinine 0.6 L Est GFR ( Amer) > 60 Est GFR (Non-Af Amer) > 60 POC Glucose (mg/dL) Random Glucose 100 Calcium 8.9 Total Bilirubin 0.9 AST 25 ALT 14 L Alkaline Phosphatase 79 Total Creatine Kinase 107 Troponin I < 0.0120 Total Protein 7.6 Albumin 4.2 Globulin 3.4 Albumin/Globulin Ratio 1.3 Urine Color Urine Clarity Urine pH Ur Specific [place] Urine Protein Urine Glucose (UA) Urine Ketones Urine Blood Urine Nitrate Urine Bilirubin Urine Urobilinogen Ur Leukocyte Esterase Urine WBC (Auto) Urine RBC (Auto) Ur Squamous Epith Cells Urine Bacteria Assessment & Plan - Assessment and Plan (Free Text) Plan: Exarcerbation of Parkinson's disease * not taking Pramipexole (mirapex) currently * Neurology consult -- Dr Luis E Krueger, help is appreciated * Continue home meds -Carbidopa/levodopa 25/100 1 tab PO Q6h -Trihexyphenidyl 2mg PO TID -Benztropine 2mg PO PO daily * Start mirapex 0.125mg PO TID Dementia * 03/27 CT head - no evidence of acute intracranial hemorrhage intracranial collection, mass effect or midline shift S/P fall * 03/27 CT cervical spine - no evidence of acute fracture or subluxation. Mild degenerative changes * ordered Xray of the Right Arm and elbow - F/U * Physical therapy eval and treatment for gait dysfunction * Occupation therapy Eval and treatment Possible bowel obstruction * 2 days constipation * Ordered Bowel obstruction series Prophylaxis * DVT prophylaxis: risk score of 2 - heparin 5000 Q8, SCDs * No GI prophylaxis -- not indicated * Swallow diet * briefcase sewer/SHON consult * Clear Liquid diet * Patients contact: Anabel [phone] (sister) Plan discussed with Dr Jerrod Russ, PGY-1 - Date & Time Date: 03/27/18 Time: 14:48 <Jerrod Simpson - Last Filed: 03/28/18 18:34> Results - Vital Signs Recent Vital Signs: Last Vital Signs Temp 98.5 F 03/28/18 15:40 Pulse 64 03/28/18 15:40 Resp 20 03/28/18 15:40 BP 143/84 03/28/18 15:40 Pulse Ox 96 03/28/18 15:40 - Labs Result Diagrams: 03/28/18 07:16 03/28/18 07:16 Labs: Laboratory Results - last 24 hr 03/28/18 03/28/18 03/28/18 07:16 07:16 07:16 WBC 7.1 RBC 4.85 Hgb 15.4 Hct 44.7 MCV 92.2 MCH 31.7 H MCHC 34.4 RDW 13.6 Plt Count 145 MPV 9.0 Neut % (Auto) 63.6 Lymph % (Auto) 22.8 [place] % (Auto) 6.7 Eos % (Auto) 6.5 H Baso % (Auto) 0.4 Neut # (Auto) 4.5 Lymph # (Auto) 1.6 [place] # (Auto) 0.5 Eos # (Auto) 0.5 Baso # (Auto) 0.0 Sodium 143 Potassium 4.2 Chloride 102 Carbon Dioxide 29 Anion Gap 16 BUN 12 Creatinine 0.6 L Est GFR ( Amer) > 60 Est GFR (Non-Af Amer) > 60 POC Glucose (mg/dL) Random Glucose 91 Calcium 8.7 Phosphorus 3.0 Magnesium 1.7 Free T4 1.20 TSH 3rd Generation 1.05 03/28/18 03/28/18 03/28/18 07:24 11:21 16:08 WBC RBC Hgb Hct MCV MCH MCHC RDW Plt Count MPV Neut % (Auto) Lymph % (Auto) [place] % (Auto) Eos % (Auto) Baso % (Auto) Neut # (Auto) Lymph # (Auto) [place] # (Auto) Eos # (Auto) Baso # (Auto) Sodium Potassium Chloride Carbon Dioxide Anion Gap BUN Creatinine Est GFR ( Amer) Est GFR (Non-Af Amer) POC Glucose (mg/dL) 100 85 76 Random Glucose Calcium Phosphorus Magnesium Free T4 TSH 3rd Generation Attending/Attestation - Attestation I have personally seen and examined this patient.: Yes I have fully participated in the care of the patient.: Yes I have reviewed all pertinent clinical information: Yes Notes (Text): 03/28/18 18:34 This is a late entry. History, Physical, Assessment and Plan, and Orders were all gone over with the resident. Jerrod Simpson D.O.
--- NOTE | 2018-03-27 15:26 | RAD ---
Date of service: 03/27/2018 HISTORY: Patient dizzy and shaking COMPARISON: Comparison is made with 05/06/2017 FINDINGS: LUNGS: No significant interval change in the lungs noted since the previous exam. PLEURA: No significant pleural effusion identified, no pneumothorax apparent. CARDIOVASCULAR: Normal. OSSEOUS STRUCTURES: No significant abnormalities. VISUALIZED UPPER ABDOMEN: Normal. OTHER FINDINGS: None. IMPRESSION: No active disease.
--- NOTE | 2018-03-27 18:11 | RAD ---
Date of service: 03/27/2018 PROCEDURE: Radiographs of the right elbow. HISTORY: status post fall onto R elbow COMPARISON: No prior. FINDINGS: BONES: Normal. No fracture. JOINTS: Normal. No osteoarthritis. SOFT TISSUES: Normal. JOINT EFFUSION: None. OTHER FINDINGS: None. IMPRESSION: No evidence of acute fracture or dislocation
--- NOTE | 2018-03-27 18:12 | RAD ---
Date of service: 03/27/2018 PROCEDURE: Radiographs of the chest and abdomen (obstructive series) HISTORY: r/o obstruction COMPARISON: No prior. TECHNIQUE: AP radiograph of the chest, with upright and supine radiographs of the abdomen. FINDINGS: CHEST: Lungs: Clear. Cardiovascular: Normal size heart. No pulmonary vascular congestion. Pleura: No pleural fluid. No pneumothorax. Other findings: None. ABDOMEN AND PELVIS: Bowel: [id number] constipation, otherwise unremarkable bowel gas pattern. No evidence of mechanical obstruction. Free air: None. Bones: Unremarkable. Other findings: None. IMPRESSION: [id number] constipation, otherwise unremarkable radiographs of chest and abdomen. No evidence of mechanical bowel obstruction.
--- NOTE | 2018-03-27 18:14 | RAD ---
Date of service: 03/27/2018 PROCEDURE: Radiographs of the Right Shoulder HISTORY: s/p fall COMPARISON: No prior. FINDINGS: BONES: Normal. No fracture. JOINTS: Normal. Glenohumeral and acromioclavicular joints preserved. No osteoarthritis. SOFT TISSUES: Normal. OTHER FINDINGS: None. IMPRESSION: No evidence of acute fracture. No evidence of right pleural effusion or pneumothorax
[2018-03-27] MEDS: Sodium Chloride 0.9% 1,000 ML IV SCH (22:48)
[2018-03-28] MEDS: Carbidopa/Levodopa 25/100 CR PO SCH ×4 (00:41→18:03)
[2018-03-28 07:34] LABS: BASO % 0.4 % (0.0-2.0); EOS # 0.5 K/uL (0.0-0.7); EOS % 6.5 % (0.0-4.0); HEMOGLOBIN 15.4 g/dL (12.0-18.0); LYMPH # 1.6 K/uL (1.0-4.3); LYMPH % 22.8 % (20.0-40.0); MEAN CELL VOLUME 92.2 fL (80.0-94.0); MEAN CORPUSCULAR HEMOGLOBIN 31.7 pg (27.0-31.0); MEAN CORPUSCULAR HGB CONC 34.4 g/dL (33.0-37.0); MONO # 0.5 K/uL (0.0-0.8); MONO % 6.7 % (0.0-10.0); NEUT # 4.5 K/uL (1.8-7.0); NEUT % 63.6 % (50.0-75.0); NRBC % 0.1 % (0.0-2.0); RBC 4.85 Mil/uL (4.40-5.90); RED CELL DISTRIBUTION WIDTH 13.6 % (11.5-14.5); WHITE BLOOD COUNT 7.1 K/uL (4.8-10.8)
--- NOTE | 2018-03-28 07:49 | CP.PCM.PN ---
<Umberto Russ - Last Filed: 03/28/18 17:11> Subjective - Date & Time of Evaluation Date of Evaluation: 03/28/18 Time of Evaluation: 07:49 - Subjective Subjective: PGY-[address] Jerrod Simpson Patient is seen and examined at bedside. Patient states that his tremors on upper and lower extremities have just re-started a few minutes again before the encounter. Patient said the medications given to him earlier calmed his tremors , but the tremors have now returned. Patient states he was not able to sleep due to feeling anxiety. Patient admits to nausea, and headache. Patient continues to be constipated. Patient denies fevers, chills, sob, chest pain, abdominal pain, leg swelling or dysuria. Objective - Vital Signs/Intake and Output Vital Signs (last 24 hours): Temp Pulse Resp BP Pulse Ox 98.1 F 62 18 107/68 98 03/28/18 00:20 03/28/18 00:20 03/28/18 00:20 03/28/18 00:20 03/28/18 00:20 Intake and Output: 03/28/18 03/28/18 06:59 18:59 Intake Total 1900 Output Total 1150 Balance 750 - Medications Medications: Current Medications Benztropine Mesylate (Cogentin) 2 mg PO DAILY [facility] Last Admin: 03/27/18 16:18 Dose: Not Given Carbidopa/Levodopa (Sinemet Cr) 1 tab PO Q6 [facility] Last Admin: 03/28/18 05:39 Dose: 1 tab Heparin Sodium (Porcine) (Heparin) 5,000 units SC Q8 [facility] Last Admin: 03/28/18 05:36 Dose: 5,000 units Sodium Chloride (Sodium Chloride 0.9%) 1,000 mls @ 100 mls/hr IV .Q10H [facility] Last Admin: 03/27/18 22:48 Dose: 100 mls/hr Lorazepam (Ativan) 1 mg IVP Q6H PRN PRN Reason: Seizure activity Pramipexole Dihydrochloride (Mirapex) 0.125 mg PO TID [facility] Last Admin: 03/27/18 19:13 Dose: 0.125 mg Trihexyphenidyl HCl (Artane) 2 mg PO TID [facility] Last Admin: 03/27/18 19:12 Dose: 2 mg - Labs Labs: 03/28/18 07:16 03/27/18 10:53 - Constitutional Appears: Well, Non-toxic, No Acute Distress - Head Exam Head Exam: ATRAUMATIC, NORMAL INSPECTION, NORMOCEPHALIC - Eye Exam Eye Exam: Normal appearance, PERRL Additional comments: fixed gaze, no eye contact noted. - ENT Exam ENT Exam: Mucous Membranes Dry, Normal Exam - Neck Exam Neck Exam: Full ROM, Normal Inspection - Respiratory Exam Respiratory Exam: Clear to Ausculation Bilateral, NORMAL BREATHING PATTERN. absent: Rales, Rhonchi, Wheezes - Cardiovascular Exam Cardiovascular Exam: REGULAR RHYTHM, +S1, +S2 - GI/Abdominal Exam GI & Abdominal Exam: Soft, Normal Bowel Sounds. absent: Distended, Tenderness, Rebound - Extremities Exam Extremities Exam: Normal Capillary Refill, Normal Inspection. absent: Pedal Edema, Tenderness Additional comments: resting tremors on right and left upper extremities resting tremor on right lower extremity - Neurological Exam Neurological Exam: Alert, Awake. absent: Normal Gait Additional comments: stuttered speech - Psychiatric Exam Psychiatric exam: Normal Affect, Normal Mood - Skin Skin Exam: Intact, Normal Color, Warm Assessment and Plan - Assessment and Plan (Free Text) Plan: Exarcerbation of Parkinson's disease * Neurology consult -- Dr Luis E Krueger, help is appreciated * Continue meds -Carbidopa/levodopa 25/100 1 tab PO Q6h -Trihexyphenidyl 2mg PO TID -Benztropine 2mg PO PO daily -Mirapex 0.125mg PO TID Dementia * 03/27 CT head - no evidence of acute intracranial hemorrhage intracranial collection, mass effect or midline shift * F/U Dr Krueger recs S/P fall * 03/27 CT cervical spine - no evidence of acute fracture or subluxation. Mild degenerative changes * Xray of the Right Arm and elbow - no evidence of fracture or dislocation * Physical therapy eval and treatment for gait dysfunction - F/U * Occupation therapy Eval and treatment- F/U Possible bowel obstruction * patient has not moved bowels * 3 days constipation * Bowel obstruction series: Mild to moderate constipation, otherwise unremarkable radiographs of chest and abdomen. * Colace 100mg PO TID * Prune juice given today, 2 cans. If constipation persist, continue 3 times a day. Prophylaxis * DVT prophylaxis: risk score of 2 - heparin 5000 Q8, SCDs * No GI prophylaxis -- not indicated * clear liquid diet * briefcase sewer/SHON consult * Speech therapy consult for swallow eval and treatment -Speech therapist Kristin, help is appreciated. * Patients contact: Anabel [phone] (sister) Plan discussed with Dr Jerrod Russ, PGY-1 <Jerrod Simpson J - Last Filed: 03/28/18 18:33> Objective - Vital Signs/Intake and Output Vital Signs (last 24 hours): Temp Pulse Resp BP Pulse Ox 98.5 F 64 20 143/84 96 03/28/18 15:40 03/28/18 15:40 03/28/18 15:40 03/28/18 15:40 03/28/18 15:40 Intake and Output: 03/28/18 03/28/18 06:59 18:59 Intake Total 1900 480 Output Total 1150 Balance 750 480 - Medications Medications: Current Medications Benztropine Mesylate (Cogentin) 2 mg PO DAILY [facility] Last Admin: 03/28/18 09:29 Dose: 2 mg Carbidopa/Levodopa (Sinemet Cr) 1 tab PO Q6 [facility] Last Admin: 03/28/18 18:03 Dose: 1 tab Docusate Sodium (Colace) 100 mg PO TID [facility] Last Admin: 03/28/18 17:58 Dose: 100 mg Heparin Sodium (Porcine) (Heparin) 5,000 units SC Q8 [facility] Last Admin: 03/28/18 13:24 Dose: 5,000 units Sodium Chloride (Sodium Chloride 0.9%) 1,000 mls @ 100 mls/hr IV .Q10H [facility] Last Admin: 03/28/18 18:05 Dose: 100 mls/hr Lorazepam (Ativan) 1 mg IVP Q6H PRN PRN Reason: Seizure activity Pneumococcal Polyvalent Vaccine (Pneumovax 23 Vaccine) 0.5 ml IM .ONCE ONE Stop: 03/30/18 10:01 Pramipexole Dihydrochloride (Mirapex) 0.125 mg PO TID [facility] Last Admin: 03/28/18 17:59 Dose: 0.125 mg Trihexyphenidyl HCl (Artane) 2 mg PO TID [facility] Last Admin: 03/28/18 18:00 Dose: 2 mg - Labs Labs: 03/28/18 07:16 03/28/18 07:16 Attending/Attestation - Attestation I have personally seen and examined this patient.: Yes I have fully participated in the care of the patient.: Yes I have reviewed all pertinent clinical information, including history, physical exam and plan: Yes Notes (Text): 03/28/18 18:26 Patient was seen and examined at 1:10 PM Exam, assessment and plan were gone over with the resident. Plan: Medicine Team please follow up with Neurologist Dr. Luis E Krueger who has not seen patient yet for further recommendations. He is familiar with patient as an outpatient. Please note that the diagnosis of Dementia is questionable. Again please follow up with Dr. Luis E Krueger concerning this issue. PMD Dr. Bingham Fernando not very helpful with regards to history or medications. Patient has not moved bowels for 3 days and Abdominal X Ray indicated moderate amount of stool without obstructions. This is likely secondary to the anticholinergic medications for Parkinson's Disease. Colace 100 mg PO TID order placed as well as Nursing Order to provide patient with Prune Juice with his meals 3x/day. He is tolerating clear liquid diet and there were no issues when I helped him with drinking 2 cups of Prune Juice at the time of my exam. Medicine Team please speak with Speech Therapist Kristin on morning 03/29/18 to have swallow evaluation for solids performed. Follow up with PT/OT recommendations. Jerrod Simpson D.O.
[2018-03-28 08:21] LABS: BLOOD UREA NITROGEN 12 mg/dL (9-20); CALCIUM 8.7 mg/dl (8.6-10.4); GFR AFRICAN-AMERICAN > 60; GFR NON-AFRICAN AMERICAN > 60
[2018-03-28] MEDS: Sodium Chloride 0.9% 1,000 ML IV SCH ×2 (09:30→18:05)
[2018-03-28 15:55] VITALS: RESP 20
[2018-03-29] MEDS: Carbidopa/Levodopa 25/100 CR PO SCH ×4 (00:28→17:04)
[2018-03-29] MEDS: Sodium Chloride 0.9% 1,000 ML IV SCH ×2 (05:26→14:49)
--- NOTE | 2018-03-29 12:48 | CP.PCM.PN ---
<AzeemphuongSonido - Last Filed: 03/29/18 12:48> Subjective - Date & Time of Evaluation Date of Evaluation: 03/29/18 Time of Evaluation: 10:00 - Subjective Subjective: Internal Medicine progress note for hospitalist service Pt seen and examined at bedside. Pt reports resting tremors affecting all four extremities. Pt has not seen any improvement in severity of tremors since yesterday. Pt also complains of slow and stuttering speech. Pt reports better tolerance of food and liquids and has been started on chopped food diet with thin liquids as per [employer] recommendations. He also reports emotional disturbance predominantly anxiety. Objective - Vital Signs/Intake and Output Vital Signs (last 24 hours): Temp Pulse Resp BP Pulse Ox 98.1 F 65 20 128/81 96 03/29/18 07:59 03/29/18 07:59 03/29/18 07:59 03/29/18 07:59 03/29/18 07:59 Intake and Output: 03/29/18 03/29/18 06:59 18:59 Intake Total 1050 920 Output Total 750 700 Balance 300 220 - Medications Medications: Current Medications Benztropine Mesylate (Cogentin) 2 mg PO DAILY [facility] Last Admin: 03/29/18 10:34 Dose: 2 mg Carbidopa/Levodopa (Sinemet Cr) 1 tab PO Q6 [facility] Last Admin: 03/29/18 11:05 Dose: 1 tab Docusate Sodium (Colace) 100 mg PO TID [facility] Last Admin: 03/29/18 10:34 Dose: 100 mg Heparin Sodium (Porcine) (Heparin) 5,000 units SC Q8 [facility] Last Admin: 03/29/18 05:35 Dose: 5,000 units Sodium Chloride (Sodium Chloride 0.9%) 1,000 mls @ 100 mls/hr IV .Q10H [facility] Last Admin: 03/29/18 05:26 Dose: 100 mls/hr Lorazepam (Ativan) 1 mg IVP Q6H PRN PRN Reason: Seizure activity Pneumococcal Polyvalent Vaccine (Pneumovax 23 Vaccine) 0.5 ml IM .ONCE ONE Stop: 03/30/18 10:01 Pramipexole Dihydrochloride (Mirapex) 0.125 mg PO TID [facility] Last Admin: 03/29/18 10:34 Dose: 0.125 mg Trihexyphenidyl HCl (Artane) 2 mg PO TID [facility] Last Admin: 03/29/18 10:34 Dose: 2 mg - Labs Labs: 03/28/18 07:16 03/28/18 07:16 <Jania Mcconnell V - Last Filed: 03/29/18 17:02> Objective - Vital Signs/Intake and Output Vital Signs (last 24 hours): Temp Pulse Resp BP Pulse Ox 98.1 F 68 20 106/73 95 03/29/18 16:09 03/29/18 16:09 03/29/18 16:09 03/29/18 16:09 03/29/18 16:09 Intake and Output: 03/29/18 03/29/18 06:59 18:59 Intake Total 1050 1920 Output Total 750 1450 Balance 300 470 - Medications Medications: Current Medications Benztropine Mesylate (Cogentin) 2 mg PO DAILY [facility] Last Admin: 03/29/18 10:34 Dose: 2 mg Carbidopa/Levodopa (Sinemet Cr) 1 tab PO Q6 [facility] Last Admin: 03/29/18 11:05 Dose: 1 tab Docusate Sodium (Colace) 100 mg PO TID [facility] Last Admin: 03/29/18 13:55 Dose: 100 mg Heparin Sodium (Porcine) (Heparin) 5,000 units SC Q8 [facility] Last Admin: 03/29/18 13:55 Dose: 5,000 units Sodium Chloride (Sodium Chloride 0.9%) 1,000 mls @ 100 mls/hr IV .Q10H [facility] Last Admin: 03/29/18 14:49 Dose: Not Given Lorazepam (Ativan) 1 mg IVP Q6H PRN PRN Reason: Seizure activity Pneumococcal Polyvalent Vaccine (Pneumovax 23 Vaccine) 0.5 ml IM .ONCE ONE Stop: 03/30/18 10:01 Pramipexole Dihydrochloride (Mirapex) 0.125 mg PO TID [facility] Last Admin: 03/29/18 13:55 Dose: 0.125 mg Trihexyphenidyl HCl (Artane) 2 mg PO TID [facility] Last Admin: 03/29/18 14:34 Dose: 2 mg - Labs Labs: 03/28/18 07:16 03/28/18 07:16 Attending/Attestation - Attestation I have personally seen and examined this patient.: Yes I have fully participated in the care of the patient.: Yes I have reviewed all pertinent clinical information, including history, physical exam and plan: Yes Notes (Text): Patient seen, examined, and case discussed with medical support specialist. Patient has bilateral resting tremors and speech is garbled at times. Patient reports recent fall. Patient reports he has not seen his neurologist in one year. Patient reports he has been receiving his medications from his PMD. We spoke with Dr. Deanna Krueger, who was not aware patient was admitted given his worsening symptoms in light of his fall. Will come see the patient either today or tomorrow. PT/OT eval Subacute rehab eval Assessment/Plan 1) Exacerbation of Parkinson's disease Assessment/Plan * Neurology consult -- Dr Luis E Krueger, help is appreciated * Will come to eval the patient and adjust medications * Continue meds -Carbidopa/levodopa 25/100 1 tab PO Q6h -Trihexyphenidyl 2mg PO TID -Benztropine 2mg PO PO daily -Mirapex 0.125mg PO TID 2) Parkinson's Dementia Assessment/Plan * 03/27 CT head - no evidence of acute intracranial hemorrhage intracranial collection, mass effect or midline shift * Neurology consult -- Dr Luis E Krueger, help is appreciated * Will come to eval the patient and adjust medications * TSH: normal 3) S/P fall Assessment/Plan * 03/27 CT cervical spine - no evidence of acute fracture or subluxation. Mild degenerative changes * Xray of the Right Arm and elbow - no evidence of fracture or dislocation * Physical therapy eval and treatment for gait dysfunction - F/U * Occupation therapy Eval and treatment- F/U * Fall risk precautions * Case management for subacute rehab evaluation 4) Constipation Assessment/Plan * Bowel obstruction series: Mild to moderate constipation, otherwise unremarkable radiographs of chest and abdomen. * Colace 100mg PO TID * Ducolax 5mg PO X1 * Monitor for bowel movement 5) Prophylaxis * DVT prophylaxis: risk score of 2 - heparin 5000 units Q8H, SCDs * No GI prophylaxis -- not indicated * Dysphagia/Modified * patient case manager/SHON consult * Patients contact: Anabel [phone] (sister) * Fall risk protocol * PT/OT eval * Subacute Rehab eval Disposition: We will need to f/u neurology for adjustment of Parkinson's medications. f/u PT/OT eval. f/u case management for subacute rehab.
[2018-03-29] MEDS ORDERED: Bisacodyl 5mg EC Tab PO ONE (17:00)
[2018-03-30] MEDS: Carbidopa/Levodopa 25/100 CR PO SCH ×4 (00:12→17:17)
--- NOTE | 2018-03-30 03:47 | CON ---
DATE: 03/29/2018 NEUROLOGY CONSULTATION REASON FOR CONSULTATION: Tremors and fall, worsening Parkinson's. HISTORY OF PRESENT ILLNESS: The patient is a 52-year-old male who has been asked for evaluation of worsening Parkinson disease. Patient has Parkinson's for few years. The patient apparently was falling at home, that is why he was brought to the hospital. Patient apparently fell backwards. As per patient's sister, patient had six episodes of fall in the past month. Patient also is getting increasing shaking in his hands. Patient has been taking Sinemet along with trihexyphenidyl. Since patient's gait was getting worse and also his tremors were getting worse, he came to the emergency room. REVIEW OF SYSTEMS: Denies any headache, dizziness, chest pain. Occasional shortness of breath. Had some constipation. Also, vomited at home. Denies any hallucinations, bad dreams, focal weakness in arms or legs. PAST MEDICAL HISTORY: Includes Parkinson disease. MEDICATIONS: At home include Sinemet 25/100 mg four times a day, trihexyphenidyl 2 mg four times a day, and benztropine. ALLERGIES: NO KNOWN DRUG ALLERGIES. SOCIAL HISTORY: Denies smoking. He used to drink alcohol. Denies use of any illicit drugs. FAMILY HISTORY: Reviewed and noncontributory to the case. PHYSICAL EXAMINATION: GENERAL: Patient is a middle-aged male, lying on the bed in no acute distress. VITAL SIGNS: His blood pressure is 106/73, heart rate 68 per minute, breathing at the rate of 16 per minute, and temperature is 98.1 degree Fahrenheit. HEENT: Head is normocephalic and atraumatic. NECK: Supple. There are no carotid bruits. LUNGS: Clear. CVS: S1 and S2 audible. No murmurs. ABDOMEN: Soft and nontender with bowel sounds present. NEUROLOGIC EXAMINATION: Mental status: Patient is awake and alert, oriented to place, year, and person. Speech is fluent. He follows all simple commands. Cranial nerve examination: Pupils are 3 mm bilaterally, reactive to light. Visual paige are full. Extraocular movements are intact. There is no facial asymmetry. He has masked facies. Palate is upgoing bilaterally; and tongue is midline. Motor examination: Tone shows positive cogwheeling in both of his extremities. Positive resting tremors are noted in the arms. Power is 4/5 to 5/5 bilaterally in all extremities. Reflexes are +1 and symmetrical. Plantars are downgoing bilaterally. Gait is deferred. LABORATORY DATA: Labs reviewed show WBC of 7.1, hemoglobin 15.4, hematocrit 44.7, and platelets of 145. Sodium is 143, potassium 4.2, chloride 102, carbon dioxide content of 29, BUN of 12, creatinine 0.6, and glucose of 91. Patient had a CT scan of the head done which showed no acute intracranial pathology. IMPRESSION: 1. Parkinson disease with worsening tremors. 2. Gait dysfunction. RECOMMENDATIONS: 1. Patient was started on Mirapex 0.125 mg three times a day which is to be continued. If patient continues to tolerate the medication, then the dose needs to be increased to 0.25 mg three times a day after two weeks. 2. Patient will be continued on Sinemet at the current dose. 3. Patient also will be continued on trihexyphenidyl as well as Ativan p.r.n. for increased tremors. 4. Patient will have physical therapy for gait imbalance. 5. Patient is a good candidate for rehabilitation placement. 6. Please continue supportive care and treatment. Thank you for the opportunity to participate in the care of this patient. Dony Krueger MD
--- NOTE | 2018-03-30 07:36 | CP.PCM.PN ---
Objective - Vital Signs/Intake and Output Vital Signs (last 24 hours): Temp Pulse Resp BP Pulse Ox 97.6 F 71 20 111/68 97 03/30/18 00:00 03/30/18 00:00 03/30/18 00:00 03/30/18 00:00 03/30/18 00:00 - Medications Medications: Current Medications Benztropine Mesylate (Cogentin) 2 mg PO DAILY [facility] Last Admin: 03/29/18 10:34 Dose: 2 mg Carbidopa/Levodopa (Sinemet Cr) 1 tab PO Q6 [facility] Last Admin: 03/30/18 05:59 Dose: 1 tab Docusate Sodium (Colace) 100 mg PO TID [facility] Last Admin: 03/29/18 17:04 Dose: 100 mg Heparin Sodium (Porcine) (Heparin) 5,000 units SC Q8 [facility] Last Admin: 03/30/18 06:15 Dose: 5,000 units Sodium Chloride (Sodium Chloride 0.9%) 1,000 mls @ 100 mls/hr IV .Q10H [facility] Last Admin: 03/29/18 14:49 Dose: Not Given Lorazepam (Ativan) 1 mg IVP Q6H PRN PRN Reason: Seizure activity Pneumococcal Polyvalent Vaccine (Pneumovax 23 Vaccine) 0.5 ml IM .ONCE ONE Stop: 03/30/18 10:01 Pramipexole Dihydrochloride (Mirapex) 0.125 mg PO TID [facility] Last Admin: 03/29/18 17:04 Dose: 0.125 mg Trihexyphenidyl HCl (Artane) 2 mg PO TID [facility] Last Admin: 03/29/18 17:04 Dose: 2 mg - Labs Labs: 03/28/18 07:16 03/28/18 07:16
[2018-03-30] MEDS ORDERED: Pneumococcal 23-Valent Vaccine IM ONE (10:00)
[2018-03-30] MEDS: Sodium Chloride 0.9% 1,000 ML IV SCH (10:05)
--- NOTE | 2018-03-30 14:45 | CP.PCM.DIS ---
<Sonido Quiles - Last Filed: 03/30/18 19:51> Provider - Provider Date of Admission: 03/27/18 11:27 Attending physician: Jania Mcconnell DO Time Spent in preparation of Discharge (in minutes): 45 Diagnosis - Discharge Diagnosis (1) Fall at home Status: Resolved (2) Symptomatic Parkinson disease Status: Chronic (3) Parkinson disease Status: Chronic Hospital Course - Lab Results Lab Results: Most Recent Lab Values WBC 7.1 K/uL (4.8-10.8) 03/28/18 07:16 RBC 4.85 Mil/uL (4.40-5.90) 03/28/18 07:16 Hgb 15.4 g/dL (12.0-18.0) 03/28/18 07:16 Hct 44.7 % (35.0-51.0) 03/28/18 07:16 MCV 92.2 fL (80.0-94.0) 03/28/18 07:16 MCH 31.7 pg (27.0-31.0) H 03/28/18 07:16 MCHC 34.4 g/dL (33.0-37.0) 03/28/18 07:16 RDW 13.6 % (11.5-14.5) 03/28/18 07:16 Plt Count 145 K/uL (130-400) 03/28/18 07:16 MPV 9.0 fL (7.2-11.7) 03/28/18 07:16 Neut % (Auto) 63.6 % (50.0-75.0) 03/28/18 07:16 Lymph % (Auto) 22.8 % (20.0-40.0) 03/28/18 07:16 [place] % (Auto) 6.7 % (0.0-10.0) 03/28/18 07:16 Eos % (Auto) 6.5 % (0.0-4.0) H 03/28/18 07:16 Baso % (Auto) 0.4 % (0.0-2.0) 03/28/18 07:16 Neut # (Auto) 4.5 K/uL (1.8-7.0) 03/28/18 07:16 Lymph # (Auto) 1.6 K/uL (1.0-4.3) 03/28/18 07:16 [place] # (Auto) 0.5 K/uL (0.0-0.8) 03/28/18 07:16 Eos # (Auto) 0.5 K/uL (0.0-0.7) 03/28/18 07:16 Baso # (Auto) 0.0 K/uL (0.0-0.2) 03/28/18 07:16 Sodium 143 mmol/L (132-148) 03/28/18 07:16 Potassium 4.2 mmol/L (3.6-5.2) 03/28/18 07:16 Chloride 102 mmol/L (98-107) 03/28/18 07:16 Carbon Dioxide 29 mmol/L (22-30) 03/28/18 07:16 Anion Gap 16 (10-20) 03/28/18 07:16 BUN 12 mg/dL (9-20) 03/28/18 07:16 Creatinine 0.6 mg/dL (0.8-1.5) L 03/28/18 07:16 Est GFR ( Amer) > 60 03/28/18 07:16 Est GFR (Non-Af Amer) > 60 03/28/18 07:16 POC Glucose (mg/dL) 95 mg/dL (65-110) 03/29/18 21:23 Random Glucose 91 mg/dL (75-110) 03/28/18 07:16 Calcium 8.7 mg/dl (8.6-10.4) 03/28/18 07:16 Phosphorus 3.0 mg/dL (2.5-4.5) 03/28/18 07:16 Magnesium 1.7 mg/dL (1.6-2.3) 03/28/18 07:16 Total Bilirubin 0.9 mg/dL (0.2-1.3) 03/27/18 10:53 AST 25 U/L (17-59) 03/27/18 10:53 ALT 14 U/L (21-72) L 03/27/18 10:53 Alkaline Phosphatase 79 U/L (38-126) 03/27/18 10:53 Total Creatine Kinase 107 U/L (55-170) 03/27/18 10:53 Troponin I < 0.0120 ng/mL (0.00-0.120) 03/27/18 10:53 Total Protein 7.6 g/dL (6.3-8.3) 03/27/18 10:53 Albumin 4.2 g/dL (3.5-5.0) 03/27/18 10:53 Globulin 3.4 gm/dL (2.2-3.9) 03/27/18 10:53 Albumin/Globulin Ratio 1.3 (1.0-2.1) 03/27/18 10:53 Free T4 1.20 ng/dL (0.78-2.19) 03/28/18 07:16 TSH 3rd Generation 1.05 mIU/L (0.46-4.68) 03/28/18 07:16 Urine Color Yellow (YELLOW) 03/27/18 10:08 Urine Clarity Clear (Clear) 03/27/18 10:08 Urine pH 5.0 (5.0-8.0) 03/27/18 10:08 Ur Specific [place] 1.031 (1.003-1.030) H 03/27/18 10:08 Urine Protein 1+ mg/dL (NEGATIVE) H 03/27/18 10:08 Urine Glucose (UA) Normal mg/dL (Normal) 03/27/18 10:08 Urine Ketones 1+ mg/dL (NEGATIVE) H 03/27/18 10:08 Urine Blood Negative (NEGATIVE) 03/27/18 10:08 Urine Nitrate Negative (NEGATIVE) 03/27/18 10:08 Urine Bilirubin Negative (NEGATIVE) 03/27/18 10:08 Urine Urobilinogen 2.0 mg/dL (0.2-1.0) 03/27/18 10:08 Ur Leukocyte Esterase Neg Leena/uL (Negative) 03/27/18 10:08 Urine WBC (Auto) 1 /hpf (0-5) 03/27/18 10:08 Urine RBC (Auto) 2 /hpf (0-3) 03/27/18 10:08 Ur Squamous Epith Cells < 1 /hpf (0-5) 03/27/18 10:08 Urine Bacteria Rare (<OCC) 03/27/18 10:08 - Hospital Course Hospital Course: History of Present Illness: Patient is 52 year old male with past medical history of Parkinson's disease, who comes in to ED after falling backwards and hitting his right shoulder and arm in a hardware store. Patient says he lost balance and tried to hold himself with left hand but was not able to prevent fall. Patient denies loss of consciousness. Patient says he did not hit his head or any other part of his body. Patient had a previous fall the day before at home while reaching for the fridge. Patient fell backwards and hit his head in that occasion. Patient's sister Anabel Palacios, says patient had 6 episodes of falls in his home in the past month. Sister has found patient in the floor multiple times, with extreme episodes of shaking, that preventing him from getting up. Sister also stated that his gait and shaking has worsens, as now he walks in a twisted manner, with both feet pointed towards midline, and his mouth has shifted towards left side, making it difficult to speak and to swallow. Patient admits to 2 days constipation, mild shortness of breath at times, nausea and nonbloody vomiting x 4 times in the past 2 days, as well as bilateral leg numbness. Patient admits to increased thirst and feeling hot inside of his body. Patient denies chills, headaches, dizziness, chest pain, shortness of breath, diarrhea , abdominal pain, leg swelling or dysuria. PMD: Indra King Allergies: NKDA PMHx: Parkinson's disease PSHX: Knee ligament surgery, as documented in the past Fmhx: none SocHx: denies tobacco use, former drinker, quitted 2010, no illicit drug use. 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 Pt was started on Trihexyphenidyl 2mg, Cogentin 2mg and Sinemet CR 1 tab with Ativan PRN. His symptoms did not improve with the starting doses of Cogentin, Sinemet and Ativan. Neurology (Dr Krueger) was consulted and added 0.125mg Mirapex TID, which is to be increased to 0.25mg TID in 2 weeks. Pt symptoms improved greatly and is recommended to begin rehabilitation. Imaging: Head CT IMPRESSION: No evidence of acute intracranial hemorrhage intracranial collection mass effect or midline shift. C/spine CT No evidence of acute fracture or subluxation. Mild degenerative changes. Obstructive Series IMPRESSION: [id number] constipation, otherwise unremarkable radiographs of chest and abdomen. No evidence of mechanical bowel obstruction. R Elbow Xray IMPRESSION: No evidence of acute fracture or dislocation R Shoulder Xray IMPRESSION: No evidence of acute fracture. No evidence of right pleural effusion or pneumothorax Please see [facility] for full report of imaging. Discharge Instructions: Patient is stable for transfer to Rehab. He is to follow up with his Neurologist after rehab course. Patient is to continue all of his home medications. . Patient is to return to the emergency room if symptoms return. All instructions explained to the patient and he agrees. Discharge Diagnosis: parkinson's disease Discharge Exam - Head Exam Head Exam: ATRAUMATIC, NORMAL INSPECTION, NORMOCEPHALIC Discharge Plan - Discharge Medications Prescriptions: Pramipexole Di-HCl [Mirapex] 0.125 mg PO TID #90 tablet - Follow Up Plan Condition: FAIR Disposition: REHAB FACILITY/REHAB UNIT Instructions: Parkinson Disease (DC), Fall Prevention (DC) Referrals: Dony Krueger MD [Staff Provider] - <Jania Mcconnell V - Last Filed: 03/30/18 23:09> Provider - Provider Date of Admission: 03/27/18 11:27 Attending physician: Jania Mcconnell DO Hospital Course - Lab Results Lab Results: Most Recent Lab Values WBC 7.1 K/uL (4.8-10.8) 03/28/18 07:16 RBC 4.85 Mil/uL (4.40-5.90) 03/28/18 07:16 Hgb 15.4 g/dL (12.0-18.0) 03/28/18 07:16 Hct 44.7 % (35.0-51.0) 03/28/18 07:16 MCV 92.2 fL (80.0-94.0) 03/28/18 07:16 MCH 31.7 pg (27.0-31.0) H 03/28/18 07:16 MCHC 34.4 g/dL (33.0-37.0) 03/28/18 07:16 RDW 13.6 % (11.5-14.5) 03/28/18 07:16 Plt Count 145 K/uL (130-400) 03/28/18 07:16 MPV 9.0 fL (7.2-11.7) 03/28/18 07:16 Neut % (Auto) 63.6 % (50.0-75.0) 03/28/18 07:16 Lymph % (Auto) 22.8 % (20.0-40.0) 03/28/18 07:16 [place] % (Auto) 6.7 % (0.0-10.0) 03/28/18 07:16 Eos % (Auto) 6.5 % (0.0-4.0) H 03/28/18 07:16 Baso % (Auto) 0.4 % (0.0-2.0) 03/28/18 07:16 Neut # (Auto) 4.5 K/uL (1.8-7.0) 03/28/18 07:16 Lymph # (Auto) 1.6 K/uL (1.0-4.3) 03/28/18 07:16 [place] # (Auto) 0.5 K/uL (0.0-0.8) 03/28/18 07:16 Eos # (Auto) 0.5 K/uL (0.0-0.7) 03/28/18 07:16 Baso # (Auto) 0.0 K/uL (0.0-0.2) 03/28/18 07:16 Sodium 143 mmol/L (132-148) 03/28/18 07:16 Potassium 4.2 mmol/L (3.6-5.2) 03/28/18 07:16 Chloride 102 mmol/L (98-107) 03/28/18 07:16 Carbon Dioxide 29 mmol/L (22-30) 03/28/18 07:16 Anion Gap 16 (10-20) 03/28/18 07:16 BUN 12 mg/dL (9-20) 03/28/18 07:16 Creatinine 0.6 mg/dL (0.8-1.5) L 03/28/18 07:16 Est GFR ( Amer) > 60 03/28/18 07:16 Est GFR (Non-Af Amer) > 60 03/28/18 07:16 POC Glucose (mg/dL) 95 mg/dL (65-110) 03/29/18 21:23 Random Glucose 91 mg/dL (75-110) 03/28/18 07:16 Calcium 8.7 mg/dl (8.6-10.4) 03/28/18 07:16 Phosphorus 3.0 mg/dL (2.5-4.5) 03/28/18 07:16 Magnesium 1.7 mg/dL (1.6-2.3) 03/28/18 07:16 Total Bilirubin 0.9 mg/dL (0.2-1.3) 03/27/18 10:53 AST 25 U/L (17-59) 03/27/18 10:53 ALT 14 U/L (21-72) L 03/27/18 10:53 Alkaline Phosphatase 79 U/L (38-126) 03/27/18 10:53 Total Creatine Kinase 107 U/L (55-170) 03/27/18 10:53 Troponin I < 0.0120 ng/mL (0.00-0.120) 03/27/18 10:53 Total Protein 7.6 g/dL (6.3-8.3) 03/27/18 10:53 Albumin 4.2 g/dL (3.5-5.0) 03/27/18 10:53 Globulin 3.4 gm/dL (2.2-3.9) 03/27/18 10:53 Albumin/Globulin Ratio 1.3 (1.0-2.1) 03/27/18 10:53 Free T4 1.20 ng/dL (0.78-2.19) 03/28/18 07:16 TSH 3rd Generation 1.05 mIU/L (0.46-4.68) 03/28/18 07:16 Urine Color Yellow (YELLOW) 03/27/18 10:08 Urine Clarity Clear (Clear) 03/27/18 10:08 Urine pH 5.0 (5.0-8.0) 03/27/18 10:08 Ur Specific [place] 1.031 (1.003-1.030) H 03/27/18 10:08 Urine Protein 1+ mg/dL (NEGATIVE) H 03/27/18 10:08 Urine Glucose (UA) Normal mg/dL (Normal) 03/27/18 10:08 Urine Ketones 1+ mg/dL (NEGATIVE) H 03/27/18 10:08 Urine Blood Negative (NEGATIVE) 03/27/18 10:08 Urine Nitrate Negative (NEGATIVE) 03/27/18 10:08 Urine Bilirubin Negative (NEGATIVE) 03/27/18 10:08 Urine Urobilinogen 2.0 mg/dL (0.2-1.0) 03/27/18 10:08 Ur Leukocyte Esterase Neg Leena/uL (Negative) 03/27/18 10:08 Urine WBC (Auto) 1 /hpf (0-5) 03/27/18 10:08 Urine RBC (Auto) 2 /hpf (0-3) 03/27/18 10:08 Ur Squamous Epith Cells < 1 /hpf (0-5) 03/27/18 10:08 Urine Bacteria Rare (<OCC) 03/27/18 10:08 Attending/Attestation - Attestation I have personally seen and examined this patient.: Yes I have fully participated in the care of the patient.: Yes I have reviewed all pertinent clinical information, including history, physical exam and plan: Yes Notes (Text): Patient seen, examined, and case discussed with medical oncology physician. patient reports he is feeling better. Neurology came to evaluate the patient yesterday. Neurology modified medications. Patient reports he has a bowel movement. Patient reports he is feeling better. Tremor improving. Speech less garbled. Patient advised he needs to follow-up with neurologist in 2 weeks to adjust medications as needed. Patient is medically stable for rehab when bed is available. This is a summary of patient's hospitalization. Please refer to emr for full detail of record. Discharge Diagnoses: 1) Exacerbation of Parkinson's disease Assessment/Plan * Neurology consult -- Dr Luis E Krueger, help is appreciated * Will come to eval the patient and adjust medications * Continue meds -Carbidopa/levodopa 25/100 1 tab PO Q6h -Trihexyphenidyl 2mg PO TID -Benztropine 2mg PO PO daily -Mirapex 0.125mg PO TID 2) Parkinson's Dementia Assessment/Plan * 03/27 CT head - no evidence of acute intracranial hemorrhage intracranial collection, mass effect or midline shift * Neurology consult -- Dr Luis E Krueger, help is appreciated * TSH: normal 3) S/P fall Assessment/Plan * 03/27 CT cervical spine - no evidence of acute fracture or subluxation. Mild degenerative changes * Xray of the Right Arm and elbow - no evidence of fracture or dislocation * Fall risk precautions * Case management for subacute rehab evaluation 4) Constipation Assessment/Plan * Bowel obstruction series: Mild to moderate constipation, otherwise unremarkable radiographs of chest and abdomen. * Colace 100mg PO TID * Ducolax 5mg PO X1 * Monitor for bowel movement 5) Prophylaxis * DVT prophylaxis: risk score of 2 - heparin 5000 units Q8H, SCDs * No GI prophylaxis -- not indicated * Dysphagia/Modified * senior case manager/SHON consult * Patients contact: Anabel [phone] (sister) * Fall risk protocol * PT/OT eval * Subacute Rehab eval
--- NOTE | 2018-03-30 15:15 | CARD ---
APPROVED REPORT Date of service: 03/27/2018 EKG Measurement Heart [id number] <Conclusion> Normal sinus rhythm Possible Left atrial enlargement Inferior infarct, age undetermined Abnormal ECG
[2018-03-30 16:33] VITALS: BP 142/90; PULSE 73; TEMP 98.5; O2SAT 96
--- NOTE | 2018-03-30 21:16 | PN ---
Copied To: Dony Krueger MD Attending MD: Dony Krueger MD DATE: 03/30/2018 NEUROLOGY PROGRESS NOTE. SUBJECTIVE: The patient is sitting on the chair, in no acute distress, denies having any headache or dizziness. PHYSICAL EXAMINATION: VITAL SIGNS: His blood pressure is 142/85, heart rate 61 per minute, breathing at a rate of 16 per minute, and temperature is 98.2 degrees Fahrenheit. HEENT: Head is normocephalic and atraumatic. NECK: Supple, there are no carotid bruits. LUNGS: Clear. CARDIOVASCULAR: S1 and S2 audible. No murmurs. ABDOMEN: Soft and nontender. Bowel sounds are present. NEUROLOGIC: Mental status: The patient is awake and alert, oriented to time, place, and person. Speech is fluent. Naming and repetition are normal. Memory and cognition are intact. Cranial nerve examination: Pupils are 3 mm bilaterally, reactive to light. Visual paige are full. Extraocular movements are intact. There is no facial asymmetry. Palate is upgoing bilaterally. Tongue is midline. Motor examination: Tone shows positive cogwheeling. Positive resting tremors are noted. Power is 5/5 bilaterally. Plantar is downgoing bilaterally. IMPRESSION: 1. Parkinson's disease. 2. Gait dysfunction. RECOMMENDATIONS: 1. The patient is tolerating Mirapex very well. 2. The patient's dose of Mirapex is to be increased after 2 weeks to 0.25 mg three times a day. 3. The patient to be continued on Sinemet at the current dose. 4. The patient also to be continued on Artane. 5. The patient also may take Ativan p.r.n. 6. The patient is a good candidate for rehab placement. 7. Please continue supportive care and the treatment. Thank you for the opportunity to participate in the care of this patient. Dnoy Krueger MD
== END 2018-03-30 18:57 | DRG 57 ==
LOC: C.ER 09:22 → C.9E 11:27 → C.3T 12:46
PROVIDERS: ADMIT Hospitalist; ATTEND Hospitalist
DX: G20 Parkinson's disease (principal); F02.80 Dementia in other diseases classified elsewhere, unspecified severity, without behavioral disturbance, psychotic disturbance, mood disturbance, and anxiety; M25.511 Pain in right shoulder; M54.5 Low back pain; F41.9 Anxiety disorder, unspecified; R47.82 Fluency disorder in conditions classified elsewhere; W19.XXXA Unspecified fall, initial encounter; K59.09 Other constipation; R29.6 Repeated falls; Y92.009 Unspecified place in unspecified non-institutional (private) residence as the place of occurrence of the external cause; Y92.512 Supermarket, store or market as the place of occurrence of the external cause; Z91.81 History of falling

== ENCOUNTER 2018-05-01 10:25 | Inpatient (IN) | payer MEDICARE ==
[2018-05-01] MEDS ORDERED: Sodium Chloride 0.9% 500 ML IV STA (11:01)
[2018-05-01] MEDS ORDERED: Sodium Chloride 0.9% 1,000 ML ONE (11:17)
[2018-05-01 11:27] LABS: SQUAMOUS EPITHIAL < 1 /hpf (0-5); URINE BILIRUBIN NEGATIVE (NEGATIVE); URINE BLOOD NEGATIVE (NEGATIVE); URINE CLARITY Clear (Clear); URINE COLOR Yellow (YELLOW); URINE GLUCOSE (UA) NORMAL (Normal); URINE LEUKOCYTE ESTERASE NEG Leu/uL (Negative); URINE PROTEIN NEGATIVE (NEGATIVE); URINE UROBILINOGEN NORMAL mg/dL (0.2-1.0)
[2018-05-01 11:43] LABS: BASO # 0.1 K/uL (0.0-0.2); BASO % 0.6 % (0.0-2.0); EOS # 0.1 K/uL (0.0-0.7); EOS % 1.2 % (0.0-4.0); HEMOGLOBIN 15.1 g/dL (12.0-18.0); LYMPH # 1.1 K/uL (1.0-4.3); LYMPH % 12.4 % (20.0-40.0); MEAN CELL VOLUME 93.3 fL (80.0-94.0); MEAN CORPUSCULAR HEMOGLOBIN 31.7 pg (27.0-31.0); MEAN PLATELET VOLUME 8.4 fL (7.2-11.7); MONO # 0.6 K/uL (0.0-0.8); MONO % 6.5 % (0.0-10.0); NEUT % 79.3 % (50.0-75.0); RBC 4.75 Mil/uL (4.40-5.90); RED CELL DISTRIBUTION WIDTH 14.1 % (11.5-14.5); WHITE BLOOD COUNT 8.8 K/uL (4.8-10.8)
[2018-05-01 11:58] LABS: ALB/GLOB RATIO 1.2 (1.0-2.1); ALBUMIN 4.3 g/dL (3.5-5.0); ALT/SGPT 12 U/L (21-72); AST/SGOT 29 U/L (17-59); BLOOD UREA NITROGEN 20 mg/dL (9-20); CALCIUM 8.7 mg/dl (8.6-10.4); GFR NON-AFRICAN AMERICAN > 60
--- NOTE | 2018-05-01 12:11 | C.PDOC ---
History Of Present Illness 53 year old male, with PMHx of Parkinson's disease, presents to ED for evaluation of tremors. Notes he has difficulty ambulating. Pt states he fell this morning at home, landing on his lower back and now complains of pain to his back. Denies head injury, weakness, or numbness. Pt is well known to ER staff, has had multiple admissions in the past, last admitted here 03/27/18. Denies fever, or any other associated symptoms at this time. - HPI Chief Complaint (Nursing): Trauma History Per: Patient History/Exam Limitations: no limitations Injury Occurred (Timing): Hours Ago: Recent travel outside of the [place]: No Additional History Per: Patient Past Medical History Reviewed: Historical Data, Nursing Documentation, Vital Signs Vital Signs: Last Vital Signs Temp 98.1 F 05/02/18 15:09 Pulse 63 05/02/18 15:09 Resp 20 05/02/18 15:09 BP 116/76 05/02/18 15:09 Pulse Ox 95 05/02/18 15:09 - Medical History PMH: Parkinson's Disease Denies: Chronic Kidney Disease Family History: States: Unknown Family Hx - Social History Hx Tobacco Use: No Hx Alcohol Use: No Hx Substance Use: No - Immunization History Hx Tetanus Toxoid Vaccination: No Hx Influenza Vaccination: Yes Hx Pneumococcal Vaccination: Yes Review Of Systems Except As Marked, All Systems Reviewed And Found Negative. Constitutional: Negative for: Fever, Chills Cardiovascular: Negative for: Chest Pain Respiratory: Negative for: Shortness of Breath Genitourinary: Negative for: Dysuria, Frequency Musculoskeletal: Positive for: Back Pain Neurological: Positive for: Other (tremors). Negative for: Weakness, Numbness, Headache, Dizziness Physical Exam - Physical Exam Appears: Non-toxic, No Acute Distress Skin: Normal Color, Warm, Dry Head: Atraumatic, Normacephalic Eye(s): bilateral: Normal Inspection Oral Mucosa: Moist Cardiovascular: Rhythm Regular Respiratory: Normal Breath Sounds, No Rales, No Rhonchi, No Wheezing Gastrointestinal/Abdominal: Soft, No Tenderness Back: No CVA Tenderness, No Vertebral Tenderness, Paraspinal Tenderness ( paralumbar) Extremity: Normal ROM, Other (tremors to upper extremities ) Neurological/Psych: Oriented x3, No Normal Speech (difficulty speaking (chronic) ) ED Course And Treatment - Laboratory Results Result Diagrams: 05/01/18 11:35 05/01/18 11:35 O2 Sat by Pulse Oximetry: 95 - Other Rad LS spine X-Ray: Interpreted by Me, Viewed By Me Interpretation: No acute fracture or dislocation. Degenerative changes. Progress Note: Patient is unable to ambulate and can't take care of himself. Patient will need to be placed on Rehab vs [facility] term senior living fascility. case was d/w hospitalist and patient was accepted for an admission. Medical Decision Making Medical Decision Making: Plan: Blood work Urinalysis LS spine Klonopin IV fluids Disposition - Disposition Disposition: HOSPITALIZED Disposition Time: 13:51 Condition: FAIR - Clinical Impression Clinical Impression: Parkinson disease, Gait abnormality, Frequent falls - PA / ALUMINUM WELDER / Resident Statement MD/DO has reviewed & agrees with the documentation as recorded. - Scribe Statement The provider has reviewed the documentation as recorded by the Scribe KP All medical record entries made by the Scribe were at my direction and personally dictated by me. I have reviewed the chart and agree that the record accurately reflects my personal performance of the history, physical exam, medical decision making, and the department course for this patient. I have also personally directed, reviewed, and agree with the discharge instructions and disposition. Decision To Admit - Pt Status Changed To: Hospital Disposition Of: Inpatient - Admit Certification Admit to Inpatient:: After my assessment, the patient will require hospitalization for at least two midnights. This is because of the severity of symptoms shown, intensity of services needed, and/or the medical risk in this patient being treated as an outpatient. 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 Unsafe discharge, friquent falls, unable to take his medications due to severe tremor. - . Bed Request Type: Regular Admitting Physician: Amanda Live Patient Diagnosis: Parkinson disease, Gait abnormality, Frequent falls
--- NOTE | 2018-05-01 13:00 | RAD ---
Date of service: 05/01/2018 PROCEDURE: Radiographs of the Lumbar Spine. HISTORY: Status post fall COMPARISON: No prior. FINDINGS: BONES: No acute compression fractures no retropulsed fragments. Vertebral bodies exhibit normal stature. Straightening of the normal lumbar lordosis however vertebral bodies otherwise exhibit relatively normal alignment. Facets normally aligned DISC SPACES: Multilevel degenerative spondylosis. Changes include varying degrees of disc space narrowing more so along the posterior disc margins with endplate eburnation, anterolateral and posterior osteophyte formation former larger than latter. . Facet joints also hypertrophic. The changes most notably affect the L5-S1 through the L2-L3 levels in decreasing order of severity. L5-S1 through the L3-L4 levels in decreasing order of severity. OTHER FINDINGS: None. IMPRESSION: No acute fractures. Straightening of the normal lumbar lordosis. Moderate multilevel the degenerative spondylosis as detailed above
[2018-05-01] MEDS: Enoxaparin 40 mg Syringe SC SCH (14:45)
[2018-05-01] MEDS ORDERED: Enoxaparin 40 mg Syringe ONE (14:56)
--- NOTE | 2018-05-01 15:47 | CP.PCM.HP ---
<Will Aleman - Last Filed: 05/01/18 16:04> History of Present Illness - History of Present Illness History of Present Illness: PGY-[address] Live Pt is a 53 year old male with PMHx Parkinsons disease who presents to ED with worsened tremors, increased weakness s/p fall. Pt states that he has been feeling weaker for the past two months and over the last couple of weeks his tremors have been getting worse. This morning patient had a fall in his kitchen while going to the refrigerator. Patient states he becomes unsteady when standing for long periods of time, and had been on his feet for awhile. He began to stumble backwards and fell, hitting his back but not his head. Patient denies any loss of consciousness of memory loss. He has been at [facility] in the past for worsening tremors, was most recently here in February Patient does admit to widespread weakness that is worse on the right, but R weaker than L is his baseline. Pt denies any headaches, chest pains, nausea, vomiting, fevers. Pt did take his meds this morning and takes them daily. Present on Admission - Present on Admission Any Indicators Present on Admission: No Review of Systems - Constitutional Constitutional: absent: Fatigue, Fever - EENT Eyes: absent: Change in Vision, Photophobia Nose/Mouth/Throat: absent: Sinus Pain, Mouth Pain - Cardiovascular Cardiovascular: absent: Chest Pain, Leg Edema, Slow Heart Rate - Respiratory Respiratory: absent: Cough, Wheezing, Change in Mucous Color - Gastrointestinal Gastrointestinal: absent: Abdominal Pain, Cramping, Diarrhea - Genitourinary Genitourinary: absent: Change in Urinary Stream, Difficulty Urinating - Musculoskeletal Musculoskeletal: Muscle Weakness. absent: Back Pain, Joint Swelling Additional comments: +tremors, weakness - Neurological Neurological: Weakness. absent: Behavioral Changes, Focal Weakness, Radicular Pain Additional comments: +Whole body tremors R>L; Widespread weakness R> L; Difficulty balancing for long periods Past Patient History - Infectious Disease Hx of Infectious Diseases: None - Past Medical History & Family History Past Medical History?: Yes - Past Social History Smoking Status: Never Smoked - CARDIAC Hx Cardiac Disorders: No - PULMONARY Hx Respiratory Disorders: No - NEUROLOGICAL Hx Parkinson's Disease: Yes - HEENT Hx HEENT Problems: No - RENAL Hx Chronic Kidney Disease: No - ENDOCRINE/METABOLIC Hx Endocrine Disorders: No - HEMATOLOGICAL/ONCOLOGICAL Hx Blood Disorders: No - INTEGUMENTARY Hx Dermatological Problems: No - MUSCULOSKELETAL/RHEUMATOLOGICAL Hx Falls: No - GASTROINTESTINAL Hx Gastrointestinal Disorders: No - GENITOURINARY/GYNECOLOGICAL Hx Genitourinary Disorders: No - PSYCHIATRIC Hx Substance Use: No - SURGICAL HISTORY Hx Surgeries: Yes Other/Comment: Right knee ligament sx - ANESTHESIA Hx Anesthesia: Yes Hx Anesthesia Reactions: No Hx Malignant Hyperthermia: No Meds Allergies/Adverse Reactions: Allergies Allergy/AdvReac Type Severity Reaction Status Date / Time No Known Allergies Allergy Verified 05/01/18 10:33 Physical Exam - Head Exam Head Exam: ATRAUMATIC, NORMAL INSPECTION - Eye Exam Eye Exam: EOMI, Normal appearance Pupil Exam: NORMAL ACCOMODATION, PERRL - Respiratory Exam Respiratory Exam: Clear to Auscultation Bilateral, NORMAL BREATHING PATTERN - Cardiovascular Exam Cardiovascular Exam: REGULAR RHYTHM, +S1, +S2. absent: JVD - GI/Abdominal Exam GI & Abdominal Exam: Normal Bowel Sounds, Soft. absent: Rebound, Rigid - Rectal Exam Rectal Exam: NORMAL INSPECTION - Extremities Exam Additional comments: +Leg muscles are spastic/rigid throughout - Neurological Exam Neurological exam: Alert, CN II-XII Intact, Motor Sensory Deficit, Oriented x3 Additional comments: +Unable to perform upper extremity muscle strength 2/2 tremors; lower extremity 4/5 on L 3/5 on R - patient states R is always weaker than left +Pill-rolling tremor b/l, worse on R +Difficulty initiating movement Finger to nose test normal b/l - Skin Skin Exam: Dry, Intact, Normal Color, Warm Results - Vital Signs Recent Vital Signs: Last Vital Signs Temp 98.2 F 05/01/18 15:09 Pulse 89 05/01/18 15:09 Resp 18 05/01/18 15:09 BP 136/86 05/01/18 15:09 Pulse Ox 97 05/01/18 15:09 - Labs Result Diagrams: 05/01/18 11:35 05/01/18 11:35 Labs: Laboratory Results - last 24 hr 05/01/18 05/01/18 05/01/18 11:18 11:35 11:35 WBC 8.8 RBC 4.75 Hgb 15.1 Hct 44.3 MCV 93.3 MCH 31.7 H MCHC 34.0 RDW 14.1 Plt Count 134 MPV 8.4 Neut % (Auto) 79.3 H Lymph % (Auto) 12.4 L [place] % (Auto) 6.5 Eos % (Auto) 1.2 Baso % (Auto) 0.6 Neut # (Auto) 7.0 Lymph # (Auto) 1.1 [place] # (Auto) 0.6 Eos # (Auto) 0.1 Baso # (Auto) 0.1 Sodium 144 Potassium 3.9 Chloride 103 Carbon Dioxide 29 Anion Gap 16 BUN 20 Creatinine 0.6 L Est GFR ( Amer) > 60 Est GFR (Non-Af Amer) > 60 Random Glucose 105 Calcium 8.7 Total Bilirubin 0.9 AST 29 ALT 12 L Alkaline Phosphatase 70 Total Creatine Kinase 221 H Total Protein 7.9 Albumin 4.3 Globulin 3.6 Albumin/Globulin Ratio 1.2 Urine Color Yellow Urine Clarity Clear Urine pH 5.0 Ur Specific [place] 1.019 Urine Protein Negative Urine Glucose (UA) Normal Urine Ketones Trace Urine Blood Negative Urine Nitrate Negative Urine Bilirubin Negative Urine Urobilinogen Normal Ur Leukocyte Esterase Neg Urine WBC (Auto) 1 Urine RBC (Auto) 1 Ur Squamous Epith Cells < 1 Assessment & Plan - Assessment and Plan (Free Text) Assessment: 1) Parkinson's disease, uncontrolled * Continue home medications * Cogentin 2mg daily * Sinemet 25/200mg PO q6 * Colace 100mg TID * Mirapex .25 mg PO TID * Artane 2mg PO TID * Neuro Consulted * PT/OT Consulted for gait/strength training and mobility * CMP * CBC w dif * Klonopin .5 stat given in ED * .5 L bolus given in ED 2) S/p fall * Pt denies head trauma or LOC * XR Lumbar neg for acute fracture 3) Prophylaxis * VTE: Lovenox 40mg SC daily * GI: Protonix 40mg PO daily <Amanda Live - Last Filed: 05/02/18 21:18> Results - Vital Signs Recent Vital Signs: Last Vital Signs Temp 98.1 F 05/02/18 15:09 Pulse 63 05/02/18 15:09 Resp 20 05/02/18 15:09 BP 116/76 05/02/18 15:09 Pulse Ox 95 05/02/18 19:03 - Labs Result Diagrams: 05/01/18 11:35 05/01/18 11:35 Attending/Attestation - Attestation I have personally seen and examined this patient.: Yes I have fully participated in the care of the patient.: Yes I have reviewed all pertinent clinical information: Yes Notes (Text): Seen and examined by me . History taken from the patient Patient has severe Parkinson's disease,s/p fall.Live with his sister who is not home. Difficult to manage at home.His sister works. patient cannot medicate himself Continue home meds/varify with his pharmacy Neuro consult D/W The resident PT
[2018-05-01] MEDS: Carbidopa/Levodopa 25/100 CR PO SCH (18:24)
[2018-05-02] MEDS: Carbidopa/Levodopa 25/100 CR PO SCH ×4 (00:30→17:49)
[2018-05-02] MEDS: Pantoprazole 40 mg EC Tab PO SCH (09:58)
[2018-05-02] MEDS: Multiple Vitamins Tab PO SCH (09:58)
[2018-05-02] MEDS: Enoxaparin 40 mg Syringe SC SCH (09:59)
--- NOTE | 2018-05-02 19:42 | CP.PCM.PN ---
<Will Aleman - Last Filed: 05/02/18 19:40> Subjective - Date & Time of Evaluation Date of Evaluation: 05/02/18 Time of Evaluation: 19:40 - Subjective Subjective: PGY-[address] Mcconnell Patient seen and examined at bedside. Patient had no acute events overnight. Patient still complaining of severe parkinson symptoms. He is very tremulous and feels he cannot control his body. Patient on home meds, still awaiting neuro recs. Pt denies nausea, vomiting, chest pain, headache. Objective - Vital Signs/Intake and Output Vital Signs (last 24 hours): Temp Pulse Resp BP Pulse Ox 98.1 F 63 20 116/76 95 05/02/18 15:09 05/02/18 15:05/02/18 15:05/02/18 15:05/02/18 19:03 Intake and Output: 05/02/18 05/03/18 18:59 06:59 Intake Total 300 Balance 300 - Medications Medications: Current Medications Benztropine Mesylate (Cogentin) 2 mg PO DAILY [facility] Last Admin: 05/02/18 09:59 Dose: 2 mg Carbidopa/Levodopa (Sinemet Cr) 1 tab PO Q6 [facility] Last Admin: 05/02/18 17:49 Dose: 1 tab Docusate Sodium (Colace) 100 mg PO TID [facility] Last Admin: 05/02/18 17:48 Dose: 100 mg Enoxaparin Sodium (Lovenox) 40 mg SC DAILY [facility] Last Admin: 05/02/18 09:59 Dose: 40 mg Famotidine (Pepcid) 40 mg PO DAILY [facility] Last Admin: 05/02/18 09:59 Dose: 40 mg Multivitamins (Hexavitamin) 1 tab PO DAILY [facility] Last Admin: 05/02/18 09:58 Dose: 1 tab Pantoprazole Sodium (Protonix Ec Tab) 40 mg PO DAILY [facility] Last Admin: 05/02/18 09:58 Dose: 40 mg Pramipexole Dihydrochloride (Mirapex) 0.25 mg PO TID [facility] Last Admin: 05/02/18 17:48 Dose: 0.25 mg Trihexyphenidyl HCl (Artane) 2 mg PO TID [facility] Last Admin: 05/02/18 17:48 Dose: 2 mg - Labs Labs: 05/01/18 11:35 05/01/18 11:35 - Head Exam Head Exam: ATRAUMATIC, NORMAL INSPECTION - Eye Exam Eye Exam: EOMI, Normal appearance - ENT Exam ENT Exam: Mucous Membranes Moist, Normal Exam - Respiratory Exam Respiratory Exam: Clear to Ausculation Bilateral, NORMAL BREATHING PATTERN - Cardiovascular Exam Cardiovascular Exam: REGULAR RHYTHM, +S1, +S2 - GI/Abdominal Exam GI & Abdominal Exam: Normal Bowel Sounds - Extremities Exam Additional comments: +b/l tremors - Back Exam Back Exam: NORMAL INSPECTION - Neurological Exam Neurological Exam: Alert, Awake, Oriented x3 Additional comments: +Severe parkinsonian symptoms including widespread tremors and severe difficulty initiating movement - Skin Skin Exam: Dry, Intact, Normal Color, Warm Assessment and Plan - Assessment and Plan (Free Text) Assessment: 1) Parkinson's disease, uncontrolled * Continue home medications * Cogentin 2mg daily * Sinemet 25/200mg PO q6 * Colace 100mg TID * Mirapex .25 mg PO TID * Artane 2mg PO TID * Neuro Consulted * PT/OT Consulted for gait/strength training and mobility * CMP * CBC w dif * Klonopin .5 stat given in ED * .5 L bolus given in ED 2) S/p fall * Pt denies head trauma or LOC * XR Lumbar neg for acute fracture 3) Prophylaxis * VTE: Lovenox 40mg SC daily * GI: Protonix 40mg PO daily Plan reviewed with Dr. Enedina Aleman PGY-1 <Amanda Live - Last Filed: 05/02/18 21:15> Objective - Vital Signs/Intake and Output Vital Signs (last 24 hours): Temp Pulse Resp BP Pulse Ox 98.1 F 63 20 116/76 95 05/02/18 15:09 05/02/18 15:09 05/02/18 15:09 05/02/18 15:09 05/02/18 19:03 Intake and Output: 05/02/18 05/03/18 18:59 06:59 Intake Total 300 Balance 300 - Medications Medications: Current Medications Benztropine Mesylate (Cogentin) 2 mg PO DAILY [facility] Last Admin: 05/02/18 09:59 Dose: 2 mg Carbidopa/Levodopa (Sinemet Cr) 1 tab PO Q6 [facility] Last Admin: 05/02/18 17:49 Dose: 1 tab Docusate Sodium (Colace) 100 mg PO TID [facility] Last Admin: 05/02/18 17:48 Dose: 100 mg Enoxaparin Sodium (Lovenox) 40 mg SC DAILY [facility] Last Admin: 05/02/18 09:59 Dose: 40 mg Famotidine (Pepcid) 40 mg PO DAILY [facility] Last Admin: 05/02/18 09:59 Dose: 40 mg Multivitamins (Hexavitamin) 1 tab PO DAILY [facility] Last Admin: 05/02/18 09:58 Dose: 1 tab Pantoprazole Sodium (Protonix Ec Tab) 40 mg PO DAILY [facility] Last Admin: 05/02/18 09:58 Dose: 40 mg Pramipexole Dihydrochloride (Mirapex) 0.25 mg PO TID [facility] Last Admin: 05/02/18 17:48 Dose: 0.25 mg Trihexyphenidyl HCl (Artane) 2 mg PO TID [facility] Last Admin: 05/02/18 17:48 Dose: 2 mg - Labs Labs: 05/01/18 11:35 05/01/18 11:35 Attending/Attestation - Attestation I have personally seen and examined this patient.: Yes I have fully participated in the care of the patient.: Yes I have reviewed all pertinent clinical information, including history, physical exam and plan: Yes Notes (Text): Seen and examined. Awake and oriented.patient has severe Parkinson disease. s/p Falls Unsteady gait. Lives with his sister who is working and unable help him. Patient has problem with takinh medications without help due to severe Parkinson disease. PT evaluation Need rehab Vs [facility] care Patient's sister not home. I agree with the residents assessment and the plan follow his neurologist continue home meds/Verified with his pharmacist
[2018-05-03] MEDS: Carbidopa/Levodopa 25/100 CR PO SCH ×5 (00:30→23:59)
[2018-05-03 08:25] LABS: ALB/GLOB RATIO 1.2 (1.0-2.1); ALBUMIN 3.8 g/dL (3.5-5.0); ALT/SGPT 15 U/L (21-72); AST/SGOT 23 U/L (17-59); BLOOD UREA NITROGEN 10 mg/dL (9-20); CALCIUM 8.7 mg/dl (8.6-10.4); GFR NON-AFRICAN AMERICAN > 60
[2018-05-03 10:00] LABS: BASO % 0.6 % (0.0-2.0); EOS # 0.3 K/uL (0.0-0.7); EOS % 3.6 % (0.0-4.0); HEMOGLOBIN 14.8 g/dL (12.0-18.0); LYMPH # 1.3 K/uL (1.0-4.3); MEAN CELL VOLUME 92.7 fL (80.0-94.0); MEAN CORPUSCULAR HEMOGLOBIN 31.5 pg (27.0-31.0); MEAN PLATELET VOLUME 9.4 fL (7.2-11.7); MONO # 0.4 K/uL (0.0-0.8); MONO % 5.5 % (0.0-10.0); NEUT # 5.5 K/uL (1.8-7.0); NEUT % 73.3 % (50.0-75.0); NRBC % 0.1 % (0.0-2.0); RBC 4.71 Mil/uL (4.40-5.90); RED CELL DISTRIBUTION WIDTH 13.9 % (11.5-14.5); WHITE BLOOD COUNT 7.6 K/uL (4.8-10.8)
[2018-05-03] MEDS: Enoxaparin 40 mg Syringe SC SCH (10:38)
[2018-05-03] MEDS: Pantoprazole 40 mg EC Tab PO SCH (10:38)
[2018-05-03] MEDS: Multiple Vitamins Tab PO SCH (10:38)
--- NOTE | 2018-05-03 13:35 | CP.PCM.PN ---
<Will lAeman - Last Filed: 05/03/18 13:51> Subjective - Date & Time of Evaluation Date of Evaluation: 05/03/18 Time of Evaluation: 13:33 - Subjective Subjective: PGY-[address] Simpson Patient seen and examined at bedside. Pt is tolerating PO food. Patient had no acute events overnight. Patient still complaining of severe parkinson symptoms. Patient states he is feeling better and more comfortable this morning. Patient on home meds, still awaiting neuro recs. Pt denies nausea, vomiting, chest pain, headache. Objective - Vital Signs/Intake and Output Vital Signs (last 24 hours): Temp Pulse Resp BP Pulse Ox 98.9 F 69 20 127/83 96 05/03/18 07:36 05/03/18 07:36 05/03/18 07:36 05/03/18 07:36 05/03/18 07:36 Intake and Output: 05/03/18 05/03/18 06:59 18:59 Intake Total 750 Balance 750 - Medications Medications: Current Medications Benztropine Mesylate (Cogentin) 2 mg PO DAILY [facility] Last Admin: 05/03/18 10:39 Dose: 2 mg Carbidopa/Levodopa (Sinemet Cr) 1 tab PO Q6 [facility] Last Admin: 05/03/18 06:00 Dose: 1 tab Docusate Sodium (Colace) 100 mg PO TID [facility] Last Admin: 05/03/18 10:38 Dose: 100 mg Enoxaparin Sodium (Lovenox) 40 mg SC DAILY [facility] Last Admin: 05/03/18 10:38 Dose: 40 mg Multivitamins (Hexavitamin) 1 tab PO DAILY [facility] Last Admin: 05/03/18 10:38 Dose: 1 tab Pantoprazole Sodium (Protonix Ec Tab) 40 mg PO DAILY [facility] Last Admin: 05/03/18 10:38 Dose: 40 mg Pramipexole Dihydrochloride (Mirapex) 0.25 mg PO TID [facility] Last Admin: 05/03/18 10:39 Dose: 0.25 mg Trihexyphenidyl HCl (Artane) 2 mg PO TID [facility] Last Admin: 05/03/18 10:39 Dose: 2 mg - Labs Labs: 05/03/18 09:55 05/03/18 07:41 - Head Exam Head Exam: ATRAUMATIC, NORMAL INSPECTION - Eye Exam Eye Exam: Normal appearance Pupil Exam: NORMAL ACCOMODATION - Respiratory Exam Respiratory Exam: Clear to Ausculation Bilateral, NORMAL BREATHING PATTERN - Cardiovascular Exam Cardiovascular Exam: REGULAR RHYTHM, +S1, +S2. absent: Irregular Rhythm, Rubs - GI/Abdominal Exam GI & Abdominal Exam: Soft, Normal Bowel Sounds. absent: Tenderness - Extremities Exam Extremities Exam: absent: Pedal Edema, Tenderness Additional comments: +resting tremors in all extremities - Neurological Exam Neurological Exam: Alert, Awake, CN II-XII Intact, Motor Sensory Deficit, Oriented x3 Additional comments: +Parkinsonian tremors in all extremities R>L - Skin Skin Exam: Dry, Intact, Normal Color, Warm Assessment and Plan - Assessment and Plan (Free Text) Assessment: 1) Parkinson's disease, uncontrolled * Continue home medications * Cogentin 2mg daily * Sinemet 25/200mg PO q6 * Colace 100mg TID * Mirapex .25 mg PO TID * Artane 2mg PO TID * Neuro Consulted - will follow med recs * PT/OT Consulted for gait/strength training, mobility, coordination, functionality * CMP * CBC w dif * Klonopin .5 stat given in ED * .5 L bolus given in ED * Social - patient lives with his sister who works and is unable to assist him [employer]. Patient has difficulty taking his home medications 2) S/p fall * Pt denies head trauma or LOC * XR Lumbar neg for acute fracture 3) Prophylaxis * VTE: Lovenox 40mg SC daily * GI: Protonix 40mg PO daily Assessment and Plan reviewed with Dr. Calvin Aleman PGY-1 <Jerrod Simpson - Last Filed: 05/05/18 19:58> Objective - Vital Signs/Intake and Output Vital Signs (last 24 hours): Temp Pulse Resp BP Pulse Ox 99 F 72 20 127/82 95 05/05/18 16:00 05/05/18 16:00 05/05/18 16:00 05/05/18 16:00 05/05/18 16:00 Intake and Output: 05/05/18 05/06/18 18:59 06:59 Output Total 350 Balance -350 - Medications Medications: Current Medications Benztropine Mesylate (Cogentin) 2 mg PO DAILY [facility] Last Admin: 05/05/18 10:51 Dose: 2 mg Carbidopa/Levodopa (Sinemet Cr) 1 tab PO Q6 [facility] Last Admin: 05/05/18 18:01 Dose: 1 tab Docusate Sodium (Colace) 100 mg PO TID [facility] Last Admin: 05/05/18 18:03 Dose: 100 mg Enoxaparin Sodium (Lovenox) 40 mg SC DAILY [facility] Last Admin: 05/05/18 10:52 Dose: 40 mg Famotidine (Pepcid) 40 mg PO DAILY [facility] Last Admin: 05/05/18 11:05 Dose: 40 mg Multivitamins (Hexavitamin) 1 tab PO DAILY [facility] Last Admin: 05/05/18 10:52 Dose: 1 tab Pantoprazole Sodium (Protonix Ec Tab) 40 mg PO DAILY [facility] Last Admin: 05/05/18 10:52 Dose: 40 mg Pramipexole Dihydrochloride (Mirapex) 0.25 mg PO TID [facility] Last Admin: 05/05/18 18:01 Dose: 0.25 mg Trihexyphenidyl HCl (Artane) 2 mg PO TID [facility] Last Admin: 05/05/18 18:01 Dose: 2 mg - Labs Labs: 05/05/18 08:14 05/05/18 08:14 Attending/Attestation - Attestation I have personally seen and examined this patient.: Yes I have fully participated in the care of the patient.: Yes I have reviewed all pertinent clinical information, including history, physical exam and plan: Yes Notes (Text): 05/05/18 19:58 This is a late entry. Care of this patient was gone over in detail with the resident. Jerrod Simpson D.O.
[2018-05-04] MEDS: Carbidopa/Levodopa 25/100 CR PO SCH ×3 (05:30→18:24)
[2018-05-04 07:46] LABS: ALB/GLOB RATIO 1.2 (1.0-2.1); ALBUMIN 3.8 g/dL (3.5-5.0); ALT/SGPT 15 U/L (21-72); AST/SGOT 20 U/L (17-59); BLOOD UREA NITROGEN 13 mg/dL (9-20); CALCIUM 8.6 mg/dl (8.6-10.4); GFR NON-AFRICAN AMERICAN > 60
[2018-05-04] MEDS: Pantoprazole 40 mg EC Tab PO SCH (10:39)
[2018-05-04] MEDS: Multiple Vitamins Tab PO SCH (10:39)
[2018-05-04] MEDS: Enoxaparin 40 mg Syringe SC SCH (10:40)
[2018-05-04 11:23] LABS: BASO # 0.1 K/uL (0.0-0.2); EOS # 0.2 K/uL (0.0-0.7); EOS % 3.3 % (0.0-4.0); HEMOGLOBIN 15.4 g/dL (12.0-18.0); LYMPH # 1.3 K/uL (1.0-4.3); LYMPH % 20.1 % (20.0-40.0); MEAN CORPUSCULAR HEMOGLOBIN 31.4 pg (27.0-31.0); MEAN CORPUSCULAR HGB CONC 35.1 g/dL (33.0-37.0); MEAN PLATELET VOLUME 8.7 fL (7.2-11.7); MONO # 0.4 K/uL (0.0-0.8); MONO % 6.1 % (0.0-10.0); NEUT # 4.6 K/uL (1.8-7.0); NEUT % 69.5 % (50.0-75.0); RBC 4.9 Mil/uL (4.40-5.90); RED CELL DISTRIBUTION WIDTH 13.8 % (11.5-14.5); WHITE BLOOD COUNT 6.6 K/uL (4.8-10.8)
[2018-05-04 11:32] LABS: MEAN CELL VOLUME 89.6 fL (80.0-94.0)
[2018-05-04 16:26] VITALS: RESP 20
--- NOTE | 2018-05-04 17:11 | CP.PCM.PN ---
<Odalys Rolon Y - Last Filed: 05/04/18 18:59> Subjective - Date & Time of Evaluation Date of Evaluation: 05/04/18 Time of Evaluation: 11:50 - Subjective Subjective: PGY-1 Medicine Progress note for Dr. Anthony Simpson Patient was seen and examined today at bedside in no acute distress. Nurse reports no overnight events. Patient appears in a better mood, responsive to questions. He is feeling better and more comfortable this AM. Patient on home meds, still awaiting neuro recs. Pt denies nausea, vomiting, chest pain, headache. Objective - Vital Signs/Intake and Output Vital Signs (last 24 hours): Temp Pulse Resp BP Pulse Ox 98.6 F 74 20 132/76 95 05/04/18 16:00 05/04/18 16:00 05/04/18 16:00 05/04/18 16:00 05/04/18 16:00 Intake and Output: 05/04/18 05/04/18 06:59 18:59 Intake Total 700 Balance 700 - Medications Medications: Current Medications Benztropine Mesylate (Cogentin) 2 mg PO DAILY [facility] Last Admin: 05/04/18 10:39 Dose: 2 mg Carbidopa/Levodopa (Sinemet Cr) 1 tab PO Q6 [facility] Last Admin: 05/04/18 13:13 Dose: 1 tab Docusate Sodium (Colace) 100 mg PO TID [facility] Last Admin: 05/04/18 13:15 Dose: 100 mg Enoxaparin Sodium (Lovenox) 40 mg SC DAILY [facility] Last Admin: 05/04/18 10:40 Dose: 40 mg Multivitamins (Hexavitamin) 1 tab PO DAILY [facility] Last Admin: 05/04/18 10:39 Dose: 1 tab Pantoprazole Sodium (Protonix Ec Tab) 40 mg PO DAILY [facility] Last Admin: 05/04/18 10:39 Dose: 40 mg Pramipexole Dihydrochloride (Mirapex) 0.25 mg PO TID [facility] Last Admin: 05/04/18 13:13 Dose: 0.25 mg Trihexyphenidyl HCl (Artane) 2 mg PO TID [facility] Last Admin: 05/04/18 13:13 Dose: 2 mg - Labs Labs: 05/04/18 11:17 05/04/18 07:04 - Constitutional Appears: Non-toxic, No Acute Distress - Head Exam Head Exam: NORMAL INSPECTION - Eye Exam Eye Exam: Normal appearance - Respiratory Exam Respiratory Exam: Clear to Ausculation Bilateral, NORMAL BREATHING PATTERN. absent: Accessory Muscle Use - Cardiovascular Exam Cardiovascular Exam: RRR, +S1, +S2 - GI/Abdominal Exam GI & Abdominal Exam: Soft, Normal Bowel Sounds. absent: Distended, Firm, Guarding, Rigid, Tenderness - Extremities Exam Extremities Exam: Pedal Edema. absent: Calf Tenderness - Neurological Exam Neurological Exam: Alert, Awake, Oriented x3 Additional comments: Muscle strength 5/5 in left upper and left lower extremities. Muscle strength 4/ 5 in right upper and right lower extremities. Gross sensation to light touch slightly diminished on right side compared to left side. 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 Calvin Rolon PGY-1 <Jerrod Simpson - Last Filed: 05/05/18 19:59> Objective - Vital Signs/Intake and Output Vital Signs (last 24 hours): Temp Pulse Resp BP Pulse Ox 99 F 72 20 127/82 95 05/05/18 16:00 05/05/18 16:00 05/05/18 16:00 05/05/18 16:00 05/05/18 16:00 Intake and Output: 05/05/18 05/06/18 18:59 06:59 Output Total 350 Balance -350 - Medications Medications: Current Medications Benztropine Mesylate (Cogentin) 2 mg PO DAILY [facility] Last Admin: 05/05/18 10:51 Dose: 2 mg Carbidopa/Levodopa (Sinemet Cr) 1 tab PO Q6 [facility] Last Admin: 05/05/18 18:01 Dose: 1 tab Docusate Sodium (Colace) 100 mg PO TID [facility] Last Admin: 05/05/18 18:03 Dose: 100 mg Enoxaparin Sodium (Lovenox) 40 mg SC DAILY [facility] Last Admin: 05/05/18 10:52 Dose: 40 mg Famotidine (Pepcid) 40 mg PO DAILY [facility] Last Admin: 05/05/18 11:05 Dose: 40 mg Multivitamins (Hexavitamin) 1 tab PO DAILY [facility] Last Admin: 05/05/18 10:52 Dose: 1 tab Pantoprazole Sodium (Protonix Ec Tab) 40 mg PO DAILY [facility] Last Admin: 05/05/18 10:52 Dose: 40 mg Pramipexole Dihydrochloride (Mirapex) 0.25 mg PO TID [facility] Last Admin: 05/05/18 18:01 Dose: 0.25 mg Trihexyphenidyl HCl (Artane) 2 mg PO TID [facility] Last Admin: 05/05/18 18:01 Dose: 2 mg - Labs Labs: 05/05/18 08:14 05/05/18 08:14 Attending/Attestation - Attestation I have personally seen and examined this patient.: Yes I have fully participated in the care of the patient.: Yes I have reviewed all pertinent clinical information, including history, physical exam and plan: Yes Notes (Text): 05/05/18 19:59 This is a late entry. Care of this patient was gone over in detail with the resident. Jerrod Simpson D.O.
[2018-05-05] MEDS: Carbidopa/Levodopa 25/100 CR PO SCH ×4 (00:10→18:01)
--- NOTE | 2018-05-05 05:15 | CON ---
Copied To: Dony Krueger MD Attending MD: Dony Krueger MD DATE: 05/04/2018 REASON FOR CONSULTATION: Parkinson's disease. HISTORY OF PRESENTING ILLNESS: The patient is a 53-year-old male with history of Parkinson's disease who came to the hospital with increasing tremors and falls. The patient states he has been getting weaker over the last two months and has been falling a few times. The patient had a fall in his kitchen, going to the refrigerator. He gets unsteady when he stands or walks. The patient also has been having worsening of tremors. He was previously admitted in the hospital with similar complaints. The patient denies having any headache, does complain of mild dizziness. There is no loss of hearing or ringing in the ears. There is no nausea or vomiting. REVIEW OF SYSTEMS: Denies any headache, chest pain, shortness of breath, abdominal pain, constipation, diarrhea, dysuria, cough or sputum production. PAST MEDICAL HISTORY: Includes Parkinson's disease. MEDICATIONS AT HOME: Include Artane, Mirapex 0.125 mg three times a day, pantoprazole, multivitamin, Sinemet CR 25/100 mg four times a day, Cogentin. ALLERGIES: NO KNOWN DRUG ALLERGIES. SOCIAL HISTORY: Denies smoking, use of alcohol, or illicit drugs. FAMILY HISTORY: Noncontributory to the case. PHYSICAL EXAMINATION: GENERAL: The patient is a middle-aged male, lying on the bed, in no acute distress. VITAL SIGNS: His blood pressure is 132/76, heart rate is 74 per minute, breathing at the rate of 16 per minute, temperature is 98.6 degrees Fahrenheit. HEENT: Head is normocephalic, atraumatic. NECK: Supple. There are no carotid bruits. LUNGS: Clear. CVS: S1, S2 audible. No murmurs. ABDOMEN: Soft and nontender with bowel sounds present. NEUROLOGY: Mental Status: The patient is awake and alert. His speech is non-fluent. He mumbles when he speaks. There is no aphasia. Naming is good. Cranial nerve examination: Pupils are 3 mm and bilaterally reactive to light. Visual paige are full. Extraocular movements are intact. There is no facial asymmetry. Palate is upgoing bilaterally and tongue is midline. Motor examination: Tone shows positive cogwheeling. Resting tremors are noted. Strength is 4/5 bilaterally in all extremities. Reflexes are +1 and symmetrical. Plantars are downgoing bilaterally. LABORATORY DATA: Labs reviewed, shows WBC of 6.6, hemoglobin 15.4, hematocrit 43.9, and platelets of 156. Sodium is 141, potassium 3.7, chloride 102, carbon dioxide 29, BUN of 13, creatinine 0.6, and glucose of 111. IMPRESSION: 1. Status post fall with gait dysfunction secondary to Parkinson's disease. 2. Worsening tremors. RECOMMENDATIONS: 1. The patient to have physical therapy for gait imbalance. 2. The patient to be continued on Sinemet at current dose. 3. I agree with increasing the dose of Mirapex to 0.25 mg three times a day. 4. The patient will require either prison placement or may be discharged home with home health aide with increasing number of hours. 5. The patient to be assessed for subacute rehabilitation placement at the moment. 6. Please continue supportive care and other treatment. Thank you for the opportunity to participate in the care of this patient. Dony Krueger MD
--- NOTE | 2018-05-05 06:30 | CP.PCM.DIS ---
<RolonOdalys Mali - Last Filed: 05/05/18 15:03> Provider - Provider Date of Admission: 05/01/18 13:47 Attending physician: Jerrod Simpson MD Time Spent in preparation of Discharge (in minutes): 45 Hospital Course - Lab Results Lab Results: Most Recent Lab Values WBC 6.6 K/uL (4.8-10.8) 05/04/18 11:17 RBC 4.90 Mil/uL (4.40-5.90) 05/04/18 11:17 Hgb 15.4 g/dL (12.0-18.0) 05/04/18 11:17 Hct 43.9 % (35.0-51.0) 05/04/18 11:17 MCV 89.6 fL (80.0-94.0) D 05/04/18 11:17 MCH 31.4 pg (27.0-31.0) H 05/04/18 11:17 MCHC 35.1 g/dL (33.0-37.0) 05/04/18 11:17 RDW 13.8 % (11.5-14.5) 05/04/18 11:17 Plt Count 156 K/uL (130-400) 05/04/18 11:17 MPV 8.7 fL (7.2-11.7) 05/04/18 11:17 Neut % (Auto) 69.5 % (50.0-75.0) 05/04/18 11:17 Lymph % (Auto) 20.1 % (20.0-40.0) 05/04/18 11:17 Ripley % (Auto) 6.1 % (0.0-10.0) 05/04/18 11:17 Eos % (Auto) 3.3 % (0.0-4.0) 05/04/18 11:17 Baso % (Auto) 1.0 % (0.0-2.0) 05/04/18 11:17 Neut # (Auto) 4.6 K/uL (1.8-7.0) 05/04/18 11:17 Lymph # (Auto) 1.3 K/uL (1.0-4.3) 05/04/18 11:17 Ripley # (Auto) 0.4 K/uL (0.0-0.8) 05/04/18 11:17 Eos # (Auto) 0.2 K/uL (0.0-0.7) 05/04/18 11:17 Baso # (Auto) 0.1 K/uL (0.0-0.2) 05/04/18 11:17 Sodium 141 mmol/L (132-148) 05/04/18 07:04 Potassium 3.7 mmol/L (3.6-5.2) 05/04/18 07:04 Chloride 102 mmol/L (98-107) 05/04/18 07:04 Carbon Dioxide 29 mmol/L (22-30) 05/04/18 07:04 Anion Gap 13 (10-20) 05/04/18 07:04 BUN 13 mg/dL (9-20) 05/04/18 07:04 Creatinine 0.6 mg/dL (0.8-1.5) L 05/04/18 07:04 Est GFR ( Amer) > 60 05/04/18 07:04 Est GFR (Non-Af Amer) > 60 05/04/18 07:04 Random Glucose 111 mg/dL (75-110) H 05/04/18 07:04 Calcium 8.6 mg/dl (8.6-10.4) 05/04/18 07:04 Total Bilirubin 0.5 mg/dL (0.2-1.3) 05/04/18 07:04 AST 20 U/L (17-59) 05/04/18 07:04 ALT 15 U/L (21-72) L 05/04/18 07:04 Alkaline Phosphatase 62 U/L (38-126) 05/04/18 07:04 Total Creatine Kinase 221 U/L (55-170) H 05/01/18 11:35 Total Protein 6.9 g/dL (6.3-8.3) 05/04/18 07:04 Albumin 3.8 g/dL (3.5-5.0) 05/04/18 07:04 Globulin 3.1 gm/dL (2.2-3.9) 05/04/18 07:04 Albumin/Globulin Ratio 1.2 (1.0-2.1) 05/04/18 07:04 Urine Color Yellow (YELLOW) 09/01/18 11:18 Urine Clarity Clear (Clear) 05/01/18 11:18 Urine pH 5.0 (5.0-8.0) 05/01/18 11:18 Ur Specific [place] 1.019 (1.003-1.030) 05/01/18 11:18 Urine Protein Negative mg/dL (NEGATIVE) 05/01/18 11:18 Urine Glucose (UA) Normal mg/dL (Normal) 05/01/18 11:18 Urine Ketones Trace mg/dL (NEGATIVE) 05/01/18 11:18 Urine Blood Negative (NEGATIVE) 05/01/18 11:18 Urine Nitrate Negative (NEGATIVE) 05/01/18 11:18 Urine Bilirubin Negative (NEGATIVE) 05/01/18 11:18 Urine Urobilinogen Normal mg/dL (0.2-1.0) 05/01/18 11:18 Ur Leukocyte Esterase Neg Leena/uL (Negative) 05/01/18 11:18 Urine WBC (Auto) 1 /hpf (0-5) 05/01/18 11:18 Urine RBC (Auto) 1 /hpf (0-3) 05/01/18 11:18 Ur Squamous Epith Cells < 1 /hpf (0-5) 05/01/18 11:18 - Hospital Course Hospital Course: Pt is a 53 year old male with PMHx Parkinsons disease who presents to ED with worsened tremors, increased weakness s/p fall. Pt states that he has been feeling weaker for the past two months and over the last couple of weeks his tremors have been getting worse. This morning patient had a fall in his kitchen while going to the refrigerator. Patient states he becomes unsteady when standing for long periods of time, and had been on his feet for awhile. He began to stumble backwards and fell, hitting his back but not his head. Patient denies any loss of consciousness of memory loss. He has been at [facility] in the past for worsening tremors, was most recently here in February Patient does admit to widespread weakness that is worse on the right, but R weaker than L is his baseline. Pt denies any headaches, chest pains, nausea, vomiting, fevers. Pt did take his meds this morning and takes them daily. Lumbar x-ray showed no acute fractures, straightening of normal lumbar lordosis , moderate multilevel degenerative spondylosis. In the ED, patient was administered Klonopin 0.5mg and 500ml of normal saline. He was subsequently transferred to the medicine floor on 05/01 for medical management. On the medicine floor, he was administered Cogentin, Sinemet, Colace, Mirapex, and Artane for his Parkinson's disease. Lovenox and Protonix was administered for gastrointestinal and deep vein thrombosis prophylaxis. Patient showed marked improvement in his condition day to day after adhering to the medication schedule as prescribed. Neurology and physical therapy were consulted and have cleared him for discharge. Primary Diagnosis: Fall 2/2 worsening Parkinson's tremor Patient is clear for discharge per Dr. Anthony Simpson. He is to continue on his home medications as prescribed, however we are increasing his Mirapex to 0.25mg po tid from 0.125mg. Please ensure that he is getting this higher dose. We are also continuing the following medications: Colace 100mg po tid Lovenox 40mg sc daily MVI 1 tab po daily Protonix 40mg po daily Cogentin 2mg po daily Carbidopa/Levodopa 25/100mg 1 tab q6h Mirapex 0.25mg po tid Artane 2mg po tid He is to follow up with Dr. Dony Krueger ([phone]) for continuous monitoring of his Parkinson's after leaving [facility]. If his symptoms worsen or return, please return to the ED. This plan was explained to the patient who understood and agreed. This is a summary of hospital course. Please refer to the EMR for more detail. - Date & Time of H&P Date of H&P: 05/05/18 Time of H&P: 06:29 Discharge Exam - Head Exam Head Exam: NORMAL INSPECTION - Eye Exam Eye Exam: EOMI, Normal appearance - ENT Exam ENT Exam: Mucous Membranes Moist, Normal Exam - Respiratory Exam Respiratory Exam: Clear to PA & Lateral, NORMAL BREATHING PATTERN, UNREMARKABLE. absent: Rales, Rhonchi, Wheezes - Cardiovascular Exam Cardiovascular Exam: REGULAR RHYTHM, +S1, +S2. absent: Systolic Murmur - GI/Abdominal Exam GI & Abdominal Exam: Normal Bowel Sounds, Soft. absent: Distended, Firm, Guarding, Tenderness - Extremities Exam Extremities exam: normal capillary refill, pedal edema - Neurological Exam Neurological exam: Alert, Oriented x3, Reflexes Normal Additional comments: resting pill tremor better. tremors in leg improved. reflexes intact. opposition movement intact. muscle strength 5/5 on left, 4/5 on right - Psychiatric Exam Psychiatric exam: Normal Affect, Normal Mood - Skin Skin Exam: Dry, Intact, Normal Color Discharge Plan - Discharge Medications Prescriptions: Pantoprazole Sodium [Protonix] 40 mg PO DAILY #30 ect Pramipexole Di-HCl [Mirapex] 0.25 mg PO TID #30 tablet - Follow Up Plan Condition: FAIR Disposition: REHAB FACILITY/REHAB UNIT Instructions: Weakness (GEN) Additional Instructions: Patient is clear for discharge per Dr. Anthony Simpson. He is to continue on his home medications as prescribed, however we are increasing his Mirapex to 0.25mg po tid from 0.125mg. Please ensure that he is getting this higher dose. We are also continuing the following medications: Colace 100mg po tid Lovenox 40mg sc daily MVI 1 tab po daily Protonix 40mg po daily Cogentin 2mg po daily Carbidopa/Levodopa 25/100mg 1 tab q6h Mirapex 0.25mg po tid Artane 2mg po tid He is to follow up with Dr. Dony Krueger ([phone]) for continuous monitoring of his Parkinson's after leaving [facility]. If his symptoms worsen or return, please return to the ED. This plan was explained to the patient who understood and agreed. Referrals: Dony Krueger MD [Staff Provider] - <Jerrod Simpson - Last Filed: 05/05/18 20:01> Provider - Provider Date of Admission: 05/01/18 13:47 Attending physician: Jerrod Simpson MD Time Spent in preparation of Discharge (in minutes): 40 Hospital Course - Lab Results Lab Results: Most Recent Lab Values WBC 8.4 K/uL (4.8-10.8) 05/05/18 08:14 RBC 4.86 Mil/uL (4.40-5.90) 05/05/18 08:14 Hgb 15.3 g/dL (12.0-18.0) 05/05/18 08:14 Hct 44.5 % (35.0-51.0) 05/05/18 08:14 MCV 91.5 fL (80.0-94.0) 05/05/18 08:14 MCH 31.5 pg (27.0-31.0) H 05/05/18 08:14 MCHC 34.4 g/dL (33.0-37.0) 05/05/18 08:14 RDW 13.8 % (11.5-14.5) 05/05/18 08:14 Plt Count 178 K/uL (130-400) 05/05/18 08:14 MPV 8.8 fL (7.2-11.7) 05/05/18 08:14 Neut % (Auto) 71.8 % (50.0-75.0) 05/05/18 08:14 Lymph % (Auto) 18.4 % (20.0-40.0) L 05/05/18 08:14 Ripley % (Auto) 5.8 % (0.0-10.0) 05/05/18 08:14 Eos % (Auto) 3.6 % (0.0-4.0) 05/05/18 08:14 Baso % (Auto) 0.4 % (0.0-2.0) 05/05/18 08:14 Neut # (Auto) 6.0 K/uL (1.8-7.0) 05/05/18 08:14 Lymph # (Auto) 1.5 K/uL (1.0-4.3) 05/05/18 08:14 [place] # (Auto) 0.5 K/uL (0.0-0.8) 05/05/18 08:14 Eos # (Auto) 0.3 K/uL (0.0-0.7) 05/05/18 08:14 Baso # (Auto) 0.0 K/uL (0.0-0.2) 05/05/18 08:14 Sodium 142 mmol/L (132-148) 05/05/18 08:14 Potassium 3.7 mmol/L (3.6-5.2) 05/05/18 08:14 Chloride 100 mmol/L (98-107) 05/05/18 08:14 Carbon Dioxide 33 mmol/L (22-30) H 05/05/18 08:14 Anion Gap 13 (10-20) 05/05/18 08:14 BUN 13 mg/dL (9-20) 05/05/18 08:14 Creatinine 0.6 mg/dL (0.8-1.5) L 05/05/18 08:14 Est GFR ( Amer) > 60 05/05/18 08:14 Est GFR (Non-Af Amer) > 60 05/05/18 08:14 Random Glucose 91 mg/dL (75-110) 05/05/18 08:14 Calcium 8.8 mg/dl (8.6-10.4) 05/05/18 08:14 Total Bilirubin 0.8 mg/dL (0.2-1.3) 05/05/18 08:14 AST 22 U/L (17-59) 05/05/18 08:14 ALT 13 U/L (21-72) L 05/05/18 08:14 Alkaline Phosphatase 62 U/L (38-126) 05/05/18 08:14 Total Creatine Kinase 221 U/L (55-170) H 05/01/18 11:35 Total Protein 7.6 g/dL (6.3-8.3) 05/05/18 08:14 Albumin 4.0 g/dL (3.5-5.0) 05/05/18 08:14 Globulin 3.6 gm/dL (2.2-3.9) 05/05/18 08:14 Albumin/Globulin Ratio 1.1 (1.0-2.1) 05/05/18 08:14 Urine Color Yellow (YELLOW) 05/01/18 11:18 Urine Clarity Clear (Clear) 05/01/18 11:18 Urine pH 5.0 (5.0-8.0) 05/01/18 11:18 Ur Specific [place] 1.019 (1.003-1.030) 05/01/18 11:18 Urine Protein Negative mg/dL (NEGATIVE) 05/01/18 11:18 Urine Glucose (UA) Normal mg/dL (Normal) 05/01/18 11:18 Urine Ketones Trace mg/dL (NEGATIVE) 05/01/18 11:18 Urine Blood Negative (NEGATIVE) 05/01/18 11:18 Urine Nitrate Negative (NEGATIVE) 05/01/18 11:18 Urine Bilirubin Negative (NEGATIVE) 05/01/18 11:18 Urine Urobilinogen Normal mg/dL (0.2-1.0) 05/01/18 11:18 Ur Leukocyte Esterase Neg Leena/uL (Negative) 05/01/18 11:18 Urine WBC (Auto) 1 /hpf (0-5) 05/01/18 11:18 Urine RBC (Auto) 1 /hpf (0-3) 05/01/18 11:18 Ur Squamous Epith Cells < 1 /hpf (0-5) 05/01/18 11:18 Attending/Attestation - Attestation I have personally seen and examined this patient.: Yes I have fully participated in the care of the patient.: Yes I have reviewed all pertinent clinical information, including history, physical exam and plan: Yes Notes (Text): 05/05/18 20:00 Patient was seen and examined at 10 AM Discharge instructions were gone over in detail with the resident. Jerrod Simpson D.O.
[2018-05-05 08:20] LABS: BASO % 0.4 % (0.0-2.0); EOS # 0.3 K/uL (0.0-0.7); EOS % 3.6 % (0.0-4.0); HEMOGLOBIN 15.3 g/dL (12.0-18.0); LYMPH # 1.5 K/uL (1.0-4.3); LYMPH % 18.4 % (20.0-40.0); MEAN CELL VOLUME 91.5 fL (80.0-94.0); MEAN CORPUSCULAR HEMOGLOBIN 31.5 pg (27.0-31.0); MEAN CORPUSCULAR HGB CONC 34.4 g/dL (33.0-37.0); MEAN PLATELET VOLUME 8.8 fL (7.2-11.7); MONO # 0.5 K/uL (0.0-0.8); MONO % 5.8 % (0.0-10.0); NEUT % 71.8 % (50.0-75.0); NRBC % 0.2 % (0.0-2.0); RBC 4.86 Mil/uL (4.40-5.90); RED CELL DISTRIBUTION WIDTH 13.8 % (11.5-14.5); WHITE BLOOD COUNT 8.4 K/uL (4.8-10.8)
[2018-05-05 08:32] LABS: ALB/GLOB RATIO 1.1 (1.0-2.1); ALT/SGPT 13 U/L (21-72); AST/SGOT 22 U/L (17-59); BLOOD UREA NITROGEN 13 mg/dL (9-20); CALCIUM 8.8 mg/dl (8.6-10.4); GFR NON-AFRICAN AMERICAN > 60
[2018-05-05] MEDS: Multiple Vitamins Tab PO SCH (10:52)
[2018-05-05] MEDS: Enoxaparin 40 mg Syringe SC SCH (10:52)
[2018-05-05] MEDS: Pantoprazole 40 mg EC Tab PO SCH (10:52)
[2018-05-05 16:48] VITALS: BP 127/82; PULSE 72; TEMP 99; O2SAT 95
--- NOTE | 2018-05-06 01:18 | PN ---
Copied To: Dony Krueger MD Attending MD: Dony Krueger MD DATE: 05/05/2018 NEUROLOGY PROGRESS NOTE SUBJECTIVE: The patient is lying on the bed, in no acute distress. Denies having any headaches or dizziness. PHYSICAL EXAMINATION VITAL SIGNS: His blood pressure is 127/82, heart rate 72 per minute, breathing at the rate of 16 per minute, temperature is 99 degrees Fahrenheit. HEENT: Normocephalic, atraumatic. NECK: Supple. There are no carotid bruits. LUNGS: Clear. CARDIOVASCULAR SYSTEM: S1 and S2 audible. No murmurs. ABDOMEN: Soft and nontender. Bowel sounds present. NEUROLOGIC EXAMINATION: Mental Status: The patient is awake, alert, and oriented to time, place, and person. Speech is stuttering, flaccid dysarthric. Naming is good. Cranial Nerve Examination: Pupils are 3 mm bilaterally, reactive to light. Visual paige are full. Extraocular movements are intact. There is no facial asymmetry. Palate is upgoing bilaterally and tongue is midline. Motor Examination: Tone shows positive cogwheeling bilaterally. Positive resting tremors are noted, mostly in the right upper and lower extremities. Plantars downgoing bilaterally. IMPRESSION: 1. Parkinson's disease. 2. Gait dysfunction. 3. Status post fall. RECOMMENDATIONS: 1. The patient is tolerating high dose of Mirapex of 0.25 mg three times a day. 2. The patient is to have physical therapy. 3. The patient to be continued on Sinemet. 4. The patient's dose of Mirapex to be further increased in the next two to three weeks if the patient tolerates the medication. 5. The patient is a good rehabilitation candidate and being transferred to subacute rehabilitation. 6. Please continue the treatment. Thank you for the opportunity to participate in the care of this patient. Dony Krueger MD
== END 2018-05-05 21:19 | DRG 57 ==
LOC: C.ER 10:25 → C.9E 13:47 → C.3T 15:03
PROVIDERS: ADMIT Family Medicine; ATTEND Family Medicine
DX: G20 Parkinson's disease (principal); W01.0XXA Fall on same level from slipping, tripping and stumbling without subsequent striking against object, initial encounter; R29.6 Repeated falls; R53.1 Weakness; Y92.000 Kitchen of unspecified non-institutional (private) residence as the place of occurrence of the external cause; Z91.81 History of falling